=== PATIENT | female | born 1935 | race African-American/Black ===

== ENCOUNTER 2017-06-03 22:12 | Inpatient (IN) | payer MEDICARE, MEDICAID ==
[2017-06-03] MEDS ORDERED: NACL 0.9% 1000 ML 1,000 ML IV ONE (22:23)
--- NOTE | 2017-06-03 23:26 | Emergency Department Report ---
ED Altered Mental Status HPI - General Chief Complaint: Altered Mental Status Stated Complaint: UNRESPONSIVE Time Seen by Provider: 06/03/17 22:19 Source: EMS Mode of arrival: Stretcher Limitations: Language Barrier, Altered Mental Status, Physical Limitation - History of Present Illness Initial Comments: Patient is a 82-year-old female here with altered mental status. She is a chronically ill 82-year-old female who is brought in by EMS from home with complaint of unresponsiveness at home. Here she responds to voice and opens her eyes and follows commands but there is a significantly with. It is unclear to me if she is actually able to comprehend what we are saying. She appears chronically ill she is cachectic appearing no visible trauma. MD Complaint: altered mental status -: unknown Severity: Unable to Determine Consistency of Symptoms: unknown Context: unknown - Related Data Home Medications Medication Instructions Recorded Confirmed Last Taken Donepezil [Aricept] 5 mg PO QHS 09/25/14 04/30/17 04/28/17 18:00 Ferrous Sulfate [Feosol] 325 mg PO QDAY 09/25/14 08/04/15 1 Day Ago HYDROcodone/ACETAMINOPHEN 1 tab PO Q12H PRN 09/25/14 08/04/15 10/30/16 [Hydrocodon-Acetaminophen 5-325] Levocetirizine Dihydrochloride 5 mg PO QHS 09/25/14 04/30/17 04/28/17 18:00 [Xyzal] Montelukast [Singulair] 10 mg PO QDAY 09/25/14 04/30/17 04/29/17 10:00 Diazepam 5 mg PO QHS 07/15/15 08/04/15 03/30/17 18:00 Ascorbic Acid [Vitamin C] 500 mg PO QDAY 08/04/15 08/04/15 Unknown Furosemide [Lasix TAB] 20 mg PO QDAY 08/04/15 08/04/15 Unknown Previous Rx's Medication Instructions Recorded Last Taken Type Diazepam Tab [Valium] 5 mg PO QHS #30 tablet 05/02/17 Unknown Rx Donepezil [Aricept] 5 mg PO QHS #30 tablet 05/02/17 Unknown Rx Montelukast [Singulair] 10 mg PO QDAY #30 tablet 05/02/17 Unknown Rx Pantoprazole [Protonix INJ] 40 mg PO DIRECT #30 tab 05/02/17 Unknown Rx Pantoprazole [Protonix TAB] 40 mg PO DAILY #30 tablet 05/02/17 Unknown Rx Tylenol /Codeine # 3 tab 30 mg PO BID #60 05/02/17 Unknown Rx Allergies Allergy/AdvReac Type Severity Reaction Status Date / Time No Known Allergies Allergy Verified 07/15/15 08:35 ED Review of Systems ROS: Stated complaint: UNRESPONSIVE Other details as noted in HPI Comment: Unobtainable due to pts medical conditions ED Past Medical Hx - Past Medical History Previous Medical History?: Yes Hx Hypertension: Yes Hx Heart Attack/AMI: No Hx Congestive Heart Failure: Yes Hx Diabetes: No Hx Deep Vein Thrombosis: No Hx Pulmonary Embolism: No Hx Liver Disease: No Hx Renal Disease: Yes (CKD) Hx Sickle Cell Disease: No Hx Arthritis: No Hx Seizures: No Hx Kidney Stones: No Hx Asthma: No Hx COPD: Yes Hx Tuberculosis: No Hx Dementia: Yes Hx HIV: No - Surgical History Past Surgical History?: Yes Hx Coronary Stent: No Hx Open Heart Surgery: No Hx Pacemaker: No Hx Internal Defibrillator: No Hx Appendectomy: No Hx Breast Surgery: No Additional Surgical History: r hip replacement - Social History Smoking Status: Unknown if ever smoked Substance Use Type: Prescribed - Medications Home Medications: Home Medications Medication Instructions Recorded Confirmed Last Taken Type Donepezil [Aricept] 5 mg PO QHS 09/25/14 04/30/17 04/28/17 18:00 History Ferrous Sulfate [Feosol] 325 mg PO QDAY 09/25/14 08/04/15 1 Day Ago History HYDROcodone/ACETAMINOPHEN 1 tab PO Q12H PRN 09/25/14 08/04/15 10/30/16 History [Hydrocodon-Acetaminophen 5-325] Levocetirizine Dihydrochloride 5 mg PO QHS 09/25/14 04/30/17 04/28/17 18:00 History [Xyzal] Montelukast [Singulair] 10 mg PO QDAY 09/25/14 04/30/17 04/29/17 10:00 History Diazepam 5 mg PO QHS 07/15/15 08/04/15 03/30/17 18:00 History Ascorbic Acid [Vitamin C] 500 mg PO QDAY 08/04/15 08/04/15 Unknown History Furosemide [Lasix TAB] 20 mg PO QDAY 08/04/15 08/04/15 Unknown History Diazepam Tab [Valium] 5 mg PO QHS #30 tablet 05/02/17 Unknown Rx Donepezil [Aricept] 5 mg PO QHS #30 tablet 05/02/17 Unknown Rx Montelukast [Singulair] 10 mg PO QDAY #30 tablet 05/02/17 Unknown Rx Pantoprazole [Protonix INJ] 40 mg PO DIRECT #30 tab 05/02/17 Unknown Rx Pantoprazole [Protonix TAB] 40 mg PO DAILY #30 tablet 05/02/17 Unknown Rx Tylenol /Codeine # 3 tab 30 mg PO BID #60 05/02/17 Unknown Rx ED Physical Exam - General Limitations: Language Barrier, Altered Mental Status, Physical Limitation General appearance: lethargic - Head Head exam: Present: atraumatic, normocephalic, other (poor dentition) - Eye Eye exam: Present: normal appearance, PERRL, EOMI Pupils: Present: normal accommodation - ENT ENT exam: Present: normal exam - Respiratory Respiratory exam: Present: normal lung sounds bilaterally, respiratory distress - Cardiovascular Cardiovascular Exam: Present: regular rate, tachycardia - GI/Abdominal GI/Abdominal exam: Present: soft. Absent: distended - Back Exam Back exam: Present: normal inspection - Neurological Exam Neurological exam: Present: altered - Skin Skin exam: Present: warm, dry ED Course Vital Signs 06/03/17 06/03/17 06/03/17 22:14 22:21 22:27 Temperature 98.5 F Pulse Rate 111 H 104 H 105 H Respiratory 27 H 24 14 Rate Blood Pressure 200/124 Blood Pressure 200/124 [Right] O2 Sat by Pulse 97 Oximetry 06/03/17 06/03/17 06/03/17 22:30 22:35 22:41 Temperature Pulse Rate 100 H 105 H 106 H Respiratory 24 23 Rate Blood Pressure 186/117 186/117 Blood Pressure [Right] O2 Sat by Pulse Oximetry 06/03/17 06/03/17 06/03/17 22:51 23:01 23:11 Temperature Pulse Rate 102 H 102 H 96 H Respiratory 27 H 26 H 26 H Rate Blood Pressure 202/123 202/123 202/123 Blood Pressure [Right] O2 Sat by Pulse Oximetry 07/05/17 07/05/17 07/05/17 23:21 23:30 23:41 Temperature Pulse Rate 98 H 95 H 94 H Respiratory 27 H 24 24 Rate Blood Pressure 202/123 192/115 192/115 Blood Pressure [Right] O2 Sat by Pulse Oximetry 06/03/17 06/04/17 23:58 00:00 Temperature Pulse Rate 90 93 H Respiratory 21 21 Rate Blood Pressure 221/118 Blood Pressure [Right] O2 Sat by Pulse Oximetry - Lab Data Result diagrams: 06/03/17 23:15 06/03/17 23:15 Lab Results 06/03/17 06/03/17 06/03/17 Range/Units 23:15 23:15 23:15 WBC 13.4 H (4.5-11.0) K/mm3 RBC 4.16 (3.65-5.03) M/mm3 Hgb 11.8 (10.1-14.3) gm/dl Hct 36.9 (30.3-42.9) % MCV 89 (79-97) fl MCH 28 (28-32) pg MCHC 32 (30-34) % RDW 14.2 (13.2-15.2) % Plt Count 229 (140-440) K/mm3 Lymph % (Auto) 6.9 L (13.4-35.0) % [place] % (Auto) 3.5 (0.0-7.3) % Eos % (Auto) 0.0 (0.0-4.3) % Baso % (Auto) 0.1 (0.0-1.8) % Lymph # 0.9 L (1.2-5.4) K/mm3 [place] # 0.5 (0.0-0.8) K/mm3 Eos # 0.0 (0.0-0.4) K/mm3 Baso # 0.0 (0.0-0.1) K/mm3 Seg Neutrophils % 89.5 H (40.0-70.0) % Seg Neutrophils # 12.0 H (1.8-7.7) K/mm3 PT 13.0 (12.2-14.9) Sec. INR 0.99 (0.87-1.13) APTT 36.7 H (24.2-36.6) Sec. Sodium (137-145) mmol/L Potassium (3.6-5.0) mmol/L Chloride (98-107) mmol/L Carbon Dioxide (22-30) mmol/L Anion Gap mmol/L BUN (7-17) mg/dL Creatinine (0.7-1.2) mg/dL Estimated GFR ml/min BUN/Creatinine Ratio % Glucose (65-100) mg/dL Lactic Acid 1.20 (0.7-2.0) mmol/L Calcium (8.4-10.2) mg/dL Total Bilirubin (0.1-1.2) mg/dL AST (5-40) units/L ALT (7-56) units/L Alkaline Phosphatase (35-129) units/L Troponin T (0.00-0.029) ng/mL Total Protein (6.3-8.2) g/dL Albumin (3.9-5) g/dL Albumin/Globulin Ratio % Urine Color (Yellow) Urine Turbidity (Clear) Urine pH (5.0-7.0) Ur Specific [place] (1.003-1.030) Urine Protein (Negative) mg/dL Urine Glucose (UA) (Negative) mg/dL Urine Ketones (Negative) mg/dL Urine Blood (Negative) Urine Nitrite (Negative) Urine Bilirubin (Negative) Urine Urobilinogen (<2.0) mg/dL Ur Leukocyte Esterase (Negative) Urine WBC (Auto) (0.0-6.0) /HPF Urine RBC (Auto) (0.0-6.0) /HPF U Epithel Cells (Auto) (0-13.0) /HPF Urine Bacteria (Auto) (Negative) /HPF Hyaline Casts /LPF Urine Mucus /HPF Blood Type Antibody Screen KALYA Antibody Screen 06/03/17 06/03/17 06/04/17 Range/Units 23:15 23:15 00:11 WBC (4.5-11.0) K/mm3 RBC (3.65-5.03) M/mm3 Hgb (10.1-14.3) gm/dl Hct (30.3-42.9) % MCV (79-97) fl MCH (28-32) pg MCHC (30-34) % RDW (13.2-15.2) % Plt Count (140-440) K/mm3 Lymph % (Auto) (13.4-35.0) % [place] % (Auto) (0.0-7.3) % Eos % (Auto) (0.0-4.3) % Baso % (Auto) (0.0-1.8) % Lymph # (1.2-5.4) K/mm3 [place] # (0.0-0.8) K/mm3 Eos # (0.0-0.4) K/mm3 Baso # (0.0-0.1) K/mm3 Seg Neutrophils % (40.0-70.0) % Seg Neutrophils # (1.8-7.7) K/mm3 PT (12.2-14.9) Sec. INR (0.87-1.13) APTT (24.2-36.6) Sec. Sodium 144 (137-145) mmol/L Potassium 4.4 (3.6-5.0) mmol/L Chloride 105.0 (98-107) mmol/L Carbon Dioxide 27 (22-30) mmol/L Anion Gap 16 mmol/L BUN 30 H (7-17) mg/dL Creatinine 1.7 H (0.7-1.2) mg/dL Estimated GFR 29 ml/min BUN/Creatinine Ratio 17.64 % Glucose 142 H (65-100) mg/dL Lactic Acid (0.7-2.0) mmol/L Calcium 10.5 H (8.4-10.2) mg/dL Total Bilirubin 0.40 (0.1-1.2) mg/dL AST 14 (5-40) units/L ALT 7 (7-56) units/L Alkaline Phosphatase 95 (35-129) units/L Troponin T < 0.010 (0.00-0.029) ng/mL Total Protein 8.5 H (6.3-8.2) g/dL Albumin 3.6 L (3.9-5) g/dL Albumin/Globulin Ratio 0.7 % Urine Color Yellow (Yellow) Urine Turbidity Slightly-cloudy (Clear) Urine pH 8.0 H (5.0-7.0) Ur Specific [place] 1.013 (1.003-1.030) Urine Protein 100 mg/dl (Negative) mg/dL Urine Glucose (UA) Neg (Negative) mg/dL Urine Ketones Neg (Negative) mg/dL Urine Blood Neg (Negative) Urine Nitrite Neg (Negative) Urine Bilirubin Neg (Negative) Urine Urobilinogen < 2.0 (<2.0) mg/dL Ur Leukocyte Esterase Neg (Negative) Urine WBC (Auto) 2.0 (0.0-6.0) /HPF Urine RBC (Auto) 5.0 (0.0-6.0) /HPF U Epithel Cells (Auto) 1.0 (0-13.0) /HPF Urine Bacteria (Auto) 1+ (Negative) /HPF Hyaline Casts 1 /LPF Urine Mucus Few /HPF Blood Type A POSITIVE Antibody Screen TNR KAYLA Antibody Screen Negative - Medical Decision Making Chronically ill 82-year-old female with altered mental status. Unclear at this point what is causing her symptoms. There is no focal findings on clinical exam. She appears chronically ill and was recently admitted to the hospital here. Plan workup with x-ray and labs and will reassess. White count elevated at 13.6 patient with hypoxia on arrival, improved in the department. Given her recent hospitalization I will plan to treat HCAP. IV Zosyn and vancomycin ordered. Chest x-ray with questionable infiltrate in the right upper lobe. Blood cultures and lactate ordered. Plan to admit to hospitalist. Portions of this chart were dictated with dictation software. There may be dictation errors contained within this note. Critical Care Time: Yes (35) Critical care attestation.: If time is entered above; I have spent that time in minutes in the direct care of this critically ill patient, excluding procedure time. Critical Care Time: 35 ED Disposition Clinical Impression: Pneumonia, Encephalopathy Disposition: [id number] OP ADMIT IP TO THIS HOSP Is pt being admited?: Yes Condition: Stable Instructions: Bacterial Pneumonia (ED) Referrals: PRIMARY CAREMD [Primary Care Provider] - 3-5 Days
[2017-06-04 00:02] LABS: Basophils % (Auto) 0.1 % (0.0-1.8); Hematocrit 36.9 % (30.3-42.9); Hemoglobin 11.8 gm/dl (10.1-14.3); Mean Corpuscular HGB Conc 32 % (30-34); Mean Corpuscular Hemoglobin 28 pg (28-32); Mean Corpuscular Volume 89 fl (79-97); Platelet Count 229 K/mm3 (140-440); Red Blood Count 4.16 M/mm3 (3.65-5.03); Red Cell Distribution Width 14.2 % (13.2-15.2); White Blood Count 13.4 K/mm3 (4.5-11.0)
[2017-06-04 00:10] LABS: INR 0.99 (0.87-1.13); Partial Thromboplastin Time 36.7 Sec. (24.2-36.6)
[2017-06-04 00:20] LABS: Alanine Aminotransferase 7 units/L (7-56); Albumin 3.6 g/dL (3.9-5); Albumin/Globulin Ratio 0.7 %; Alkaline Phosphatase 95 units/L (35-129); Anion Gap 16 mmol/L; BUN/Creatinine Ratio 17.64; Blood Urea Nitrogen 30 mg/dL (7-17); Calcium 10.5 mg/dL (8.4-10.2); Carbon Dioxide 27 mmol/L (22-30); Glucose 142 mg/dL (65-100); Potassium 4.4 mmol/L (3.6-5.0); Sodium 144 mmol/L (137-145); Total Protein 8.5 g/dL (6.3-8.2)
[2017-06-04] MEDS ORDERED: VANCOMYCIN/NS 1 GM/250 ML 1 GM/250 ML BAG IV ONE (00:57)
[2017-06-04] MEDS ORDERED: ZOSYN/NS 4.5GM/100ML 4.5 GM/100 ML VIAL IV ONE (00:57)
[2017-06-04 01:17] LABS: Bacteria,Urine 1+ /HPF (Negative); Bilirubin,Urine NEG (Negative); Blood,Urine NEG (Negative); Ketones,Urine NEG (Negative); Leukocyte Esterase,Urine NEG (Negative); Mucus,Urine FEW /HPF; Nitrite,Urine NEG (Negative); Urobilinogen,Urine < 2.0 mg/dL (<2.0)
[2017-06-04] MEDS ORDERED: APRESOLINE ONE (02:20)
[2017-06-04] MEDS ORDERED: APRESOLINE IV ONE (02:30)
--- NOTE | 2017-06-04 05:00 | Admit Criteria Form ---
Admission Criteria Documentation: MENTAL STATUS CHANGE Clinical Indications for Inpatient Care (Place 'X' for any and all applicable criteria): Ongoing inpatient care may be needed for 1 or more of the following(1)(2)(3)(5)( 6): [ X]I. Suspected serious etiology (eg, medical disorder, SUPERVISOR MIXING event) of altered mental status [ ]II. Danger to self or others not manageable at lower level of care [ ]III. Grave disability (eg, inability to perform self care necessary at lower level of care) [ ]IV. Agitation or inappropriate behavior interfering with care for primary condition (eg, attempting to discontinue lines or drains prematurely, unable to cooperate with respiratory care) [ ]V. Delirium [A] [D][E] as described by 1 or more of the following(26): [ ]a) Delirium due to alcohol or sedative [F] withdrawal [ ]b) Delirium of uncertain etiology that has not responded to appropriate empiric treatment [ ]c) Delirium that prevents performance of a life-sustaining function (eg, feeding or hydrating oneself) [ ]. General contraindications and/or Inappropriate clinical situations for Observational Care in patients with Mental Status Change, when ANY ONE of the following is required: [ ]a) Prediction of prolongation of LOS based on ANY ONE of the following may be considered as a contraindication for observational care 2, 3, 4, 5, 6, 7, 8, 9, 10, 11 [ ]i) Age > 65 yrs. [ ]ii) Patient arriving by ambulance [ ]iii) Patient with high acuity [ ]iv) Patient requiring vital sign monitoring [ ]v) Patient on IV medication [ ]b) Systolic blood pressures greater than or equal to 180mmHg 3, 12 [ ]c) Patient with altered mental status including delirium and other alteration of consciousness, (3) [ ]d) Patient whose discharge disposition will be to a custodial home or rehabilitation home should not be managed in Emergency Department Observation Unit. CMS rule requires 3 days hospital stay before such placement.3,13 [ ]e) Patient with failure to thrive due to broad array of etiologies 3,16,17 [ ]f) Inability to ambulate 3,14 Extended stay beyond goal length of stay for the primary condition may be needed until ALL of the following are present(3)(5): [ ]a) Underlying medical etiology of mental status change is absent, or has been established and adequately treated [ ]b) Danger to self or others is absent or manageable at lower level of care. [ ]c) Behavior crisis management, including physical or chemical restraints, is not required or available at lower level of car [ ]d) Substance or alcohol withdrawal is absent or manageable at lower level of care. [ ]e) Behavioral symptoms (eg, agitation, somnolence, inappropriate behavior) are absent, or are manageable at lower level of care. The original [facility] [employer] content created by [facility] [employer] has been revised. The portions of the content which have been revised are identified through the use of italic text or in bold, and [facility] has neither reviewed nor approved the modified material. All other unmodified content is copyright [facility] [employer]. Please see references footnoted in the original [facility] Admission Criteria Met: Yes
[2017-06-04 05:49] LABS: ISTAT Base Excess -2; ISTAT HCO3 22.3; ISTAT PCO2 33.7 (35-45); ISTAT PH 7.428 (7.35-7.45); ISTAT PO2 87 (80-105); ISTAT SO2 97; ISTAT TCO2 23
[2017-06-04] MEDS ORDERED: DULCOLAX PR PRN (06:14)
[2017-06-04] MEDS ORDERED: MILK OF MAGNESIA PO PRN (06:14)
[2017-06-04] MEDS ORDERED: TYLENOL PO PRN (06:14)
[2017-06-04] MEDS ORDERED: ZOFRAN IV PRN (06:14)
--- NOTE | 2017-06-04 06:24 | History and Physical Report ---
History of Present Illness Date of examination: 06/04/17 Date of admission: 06/04/17 03:01 History of present illness: 82-year-old woman with a history of hypertension, COPD, chronic kidney disease, dementia was just discharged from the hospital returned with complaints of cough productive of yellow phlegm, lethargy, patient has been sleeping all day. Patient was discharged from the hospital 2 days ago . History is per the spouse at bedside, review of systems unobtainable Past Surgical History: total hip replacement Social history: smoke , no alcohol or drug use Family history: hypertension Medications and Allergies Allergies Allergy/AdvReac Type Severity Reaction Status Date / Time No Known Allergies Allergy Verified 07/15/15 08:35 Home Medications Medication Instructions Recorded Confirmed Last Taken Type Donepezil [Aricept] 5 mg PO QHS 09/25/14 04/30/17 04/28/17 18:00 History Ferrous Sulfate [Feosol] 325 mg PO QDAY 09/25/14 08/04/15 1 Day Ago History HYDROcodone/ACETAMINOPHEN 1 tab PO Q12H PRN 09/25/14 08/04/15 10/30/16 History [Hydrocodon-Acetaminophen 5-325] Levocetirizine Dihydrochloride 5 mg PO QHS 09/25/14 04/30/17 04/28/17 18:00 History [Xyzal] Montelukast [Singulair] 10 mg PO QDAY 09/25/14 04/30/17 04/29/17 10:00 History Diazepam 5 mg PO QHS 07/15/15 08/04/15 03/30/17 18:00 History Ascorbic Acid [Vitamin C] 500 mg PO QDAY 08/04/15 08/04/15 Unknown History Furosemide [Lasix TAB] 20 mg PO QDAY 08/04/15 08/04/15 Unknown History Diazepam Tab [Valium] 5 mg PO QHS #30 tablet 05/02/17 Unknown Rx Donepezil [Aricept] 5 mg PO QHS #30 tablet 05/02/17 Unknown Rx Montelukast [Singulair] 10 mg PO QDAY #30 tablet 05/02/17 Unknown Rx Pantoprazole [Protonix INJ] 40 mg PO DIRECT #30 tab 05/02/17 Unknown Rx Pantoprazole [Protonix TAB] 40 mg PO DAILY #30 tablet 05/02/17 Unknown Rx Tylenol /Codeine # 3 tab 30 mg PO BID #60 05/02/17 Unknown Rx Active Meds: Active Medications Acetaminophen (Tylenol) 650 mg PO Q4H PRN PRN Reason: Pain MILD(1-3)/Fever >100.5/[place] Ascorbic Acid (Vitamin C) 500 mg PO QDAY ISSAC Bisacodyl (Dulcolax) 10 mg SC QDAY PRN PRN Reason: Constipation unrelieved by MOM Diazepam (Valium) 5 mg PO QHS ISSAC Donepezil HCl (Aricept) 5 mg PO QHS ISSAC Ferrous Sulfate (Feosol) 325 mg PO QDAY ISSAC Furosemide (Lasix) 20 mg PO QDAY ISSAC Hydralazine HCl (Apresoline) 5 mg IV Q6HR PRN PRN Reason: Hypertension Levofloxacin/Dextrose (Levaquin 750mg/150ml) 750 mg in 150 mls @ 100 mls/hr IV Q24HR ISSAC PRN Reason: Protocol Piperacillin Sod/Tazobactam Sod (Zosyn/Ns 4.5gm/100ml) 4.5 gm in 100 mls @ 200 mls/hr IV Q6HR ISSAC PRN Reason: Protocol Magnesium Hydroxide (Milk Of Magnesia) 30 ml PO Q4H PRN PRN Reason: Constipation Ondansetron HCl (Zofran) 4 mg IV Q8H PRN PRN Reason: N/V unrelieved by Reglan Pantoprazole Sodium (Protonix) 40 mg PO DAILY [facility] Exam - Physical Exam Narrative exam: Gen. appearance: Patient lying in bed, no apparent distress HEENT: Normocephalic, atraumatic, pupils equally round and reactive to light, extraocular movement intact, and no sclericterus,. No JVD or thyromegaly or nodule,neck supple, no carotid bruit ,mucous membranes moist, no exudate or erythema Heart: S1, S2, regular rate and rhythm Lungs: [place], breathing comfortable Abdomen: Positive bowel sounds, nontender, nondistended, no organomegaly Extremity: No edema, cyanosis, clubbing Skin: No rash, nodules, warm, dry Neuro: lethargic, difficult to assess - Constitutional Vitals: Temp Pulse Resp BP Pulse Ox 98.5 F 104 H 24 183/92 97 06/03/17 22:27 06/04/17 04:21 06/04/17 04:21 06/04/17 04:21 06/03/17 22:27 Results - Labs CBC & Chem 7: 06/03/17 23:15 06/03/17 23:15 Labs: Abnormal lab results 06/04/17 Range/Units 05:41 POC ABG pCO2 33.7 L (35-45) - Imaging and Cardiology Chest x-ray: image reviewed Assessment and Plan HCAP Hypertension uncontrolled Dementia Chronic kidney disease Admit to medicine Start IV Zosyn, Levaquin, IV hydralazine Obtain sputum culture, follow blood cultures Continue appropriate outpatient medication DVT prophylaxis with SCD, recent admission for GIB
[2017-06-04] MEDS ORDERED: ZOSYN/NS 4.5GM/100ML 4.5 GM/100 ML VIAL IV SCH (07:00)
--- NOTE | 2017-06-04 07:40 | XRay Report ---
Single view chest: Compared to 08/06/15. History: Altered mental status. Findings: Cardiomegaly. Trachea is midline. No consolidation, pneumothorax or pleural effusion. Impression: No acute cardiopulmonary findings.
[2017-06-04] MEDS: ZOSYN/NS 2.25 GM/50ML 2.25 GM/50 ML BAG IV SCH ×3 (09:01→21:16)
[2017-06-04] MEDS: LEVAQUIN 750MG/150ML 750 MG/150 ML BAG IV SCH (10:34)
[2017-06-04] MEDS: LASIX PO SCH (10:35)
[2017-06-04] MEDS: FEOSOL PO SCH (10:35)
[2017-06-04] MEDS: PROTONIX PO SCH (10:35)
[2017-06-04] MEDS: VITAMIN C PO SCH (10:35)
[2017-06-04] MEDS: APRESOLINE IV PRN (10:52)
--- NOTE | 2017-06-04 16:15 | Event Note ---
Date: 06/04/17 Patient was seen and evaluated this morning, patient H&P is done today and no need of daily note.
[2017-06-04] MEDS: ARICEPT PO SCH (21:18)
[2017-06-04] MEDS ORDERED: VALIUM PO SCH (22:00)
[2017-06-05] MEDS: ZOSYN/NS 2.25 GM/50ML 2.25 GM/50 ML BAG IV SCH ×2 (03:00→08:11)
[2017-06-05 07:46] LABS: Red Blood Count 3.96 M/mm3 (3.65-5.03); White Blood Count 13.4 K/mm3 (4.5-11.0)
[2017-06-05 07:47] LABS: Mean Corpuscular HGB Conc 31 % (30-34); Mean Corpuscular Hemoglobin 28 pg (28-32); Mean Corpuscular Volume 88 fl (79-97); Platelet Count 246 K/mm3 (140-440); Red Cell Distribution Width 14.5 % (13.2-15.2)
[2017-06-05 08:10] LABS: BUN/Creatinine Ratio 18.42; Calcium 10.9 mg/dL (8.4-10.2); Chloride 107.7 mmol/L (98-107); Potassium 3.3 mmol/L (3.6-5.0)
[2017-06-05] MEDS: APRESOLINE IV PRN (08:45)
[2017-06-05] MEDS ORDERED: PROVENTIL IH PRN (09:00)
--- NOTE | 2017-06-05 09:13 | XRay Report ---
AP chest x-ray. History: Cough. Findings: The heart and lungs reveal no acute findings or interval changes since June 03, 2017.
[2017-06-05] MEDS: LASIX PO SCH (09:31)
[2017-06-05] MEDS: PROTONIX PO SCH (09:31)
[2017-06-05] MEDS: FEOSOL PO SCH (09:31)
[2017-06-05] MEDS: VITAMIN C PO SCH (09:32)
[2017-06-05 10:03] LABS: Basophils % (Manual) 0 % (0.0-1.8); Blastocytes % (Manual) 0 %; Diff Status Complete; Eosinophils % (Manual) 0 % (0.0-4.3); Platelet Estimate Consistent w Auto; RBC Morphology Normal
[2017-06-05] MEDS ORDERED: NORCO 5/325 PO PRN (12:00)
[2017-06-05] MEDS: NORVASC PO SCH (12:16)
[2017-06-05] MEDS ORDERED: K-DUR PO ONE ×2 (13:05→16:00)
--- NOTE | 2017-06-05 13:06 | Progress Note ---
Assessment and Plan Assessment and plan: Toxic metabolic encephalopathy Dementia - Improving, supportive care COPD exacerbation - on breathing treatment, IV antibiotics Uncontrolled hypertension - Started on amlodipine Debility -Physical therapy DVT prophylaxis - Lovenox Disposition - Patient needed SNF History Interval history: Patient was seen and evaluated this morning, her was in the room, and he said she communicates with him. She doesn't speak khmer. Hospitalist Physical - Physical exam Narrative exam: Not in cardiopulmonary distress. The patient appeared chronically sick looking. Vital signs as documented. Head exam is unremarkable. No scleral icterus . Neck is without jugular venous distension, thyromegaly, or carotid bruits. Lungs are clear to auscultation. Cardiac exam reveals regular rate and Rhythm. Abdominal exam reveals normal bowel sounds, no masses, no organomegaly and no aortic enlargement. Extremities are nonedematous and both femoral and pedal pulses are normal. 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 No focal weakness. - Constitutional Vitals: Temp Pulse Resp BP Pulse Ox 97.7 F 109 H 18 153/73 97 06/05/17 09:00 06/05/17 12:16 06/05/17 10:00 06/05/17 12:16 06/05/17 10:00 Results - Labs CBC & Chem 7: 06/05/17 07:24 06/05/17 07:24 Labs: Laboratory Last Values WBC 13.4 K/mm3 (4.5-11.0) H 06/05/17 07:24 RBC 3.96 M/mm3 (3.65-5.03) 06/05/17 07:24 Hgb 11.0 gm/dl (10.1-14.3) 06/05/17 07:24 Hct 35.0 % (30.3-42.9) 06/05/17 07:24 MCV 88 fl (79-97) 06/05/17 07:24 MCH 28 pg (28-32) 06/05/17 07:24 MCHC 31 % (30-34) 06/05/17 07:24 RDW 14.5 % (13.2-15.2) 06/05/17 07:24 Plt Count 246 K/mm3 (140-440) 06/05/17 07:24 Lymph % (Auto) 6.9 % (13.4-35.0) L 06/03/17 23:15 [place] % (Auto) 3.5 % (0.0-7.3) 06/03/17 23:15 Eos % (Auto) 0.0 % (0.0-4.3) 06/03/17 23:15 Baso % (Auto) 0.1 % (0.0-1.8) 06/03/17 23:15 Lymph # 0.9 K/mm3 (1.2-5.4) L 06/03/17 23:15 [place] # 0.5 K/mm3 (0.0-0.8) 06/03/17 23:15 Eos # 0.0 K/mm3 (0.0-0.4) 06/03/17 23:15 Baso # 0.0 K/mm3 (0.0-0.1) 06/03/17 23:15 Add Manual Diff Complete 06/05/17 07:24 Total Counted 100 06/05/17 07:24 Seg Neutrophils % Drywall Professional 06/05/17 07:24 Seg Neuts % (Manual) 96.0 % (40.0-70.0) H 06/05/17 07:24 Band Neutrophils % 2.0 % 06/05/17 07:24 Lymphocytes % (Manual) 1.0 % (13.4-35.0) L 06/05/17 07:24 Reactive Lymphs % (Man) 0 % 06/05/17 07:24 Monocytes % (Manual) 1.0 % (0.0-7.3) 06/05/17 07:24 Eosinophils % (Manual) 0 % (0.0-4.3) 06/05/17 07:24 Basophils % (Manual) 0 % (0.0-1.8) 06/05/17 07:24 Metamyelocytes % 0 % 06/05/17 07:24 Myelocytes % 0 % 06/05/17 07:24 Promyelocytes % 0 % 06/05/17 07:24 Blast Cells % 0 % 06/05/17 07:24 Nucleated RBC % Not Reportable 06/05/17 07:24 Seg Neutrophils # 12.0 K/mm3 (1.8-7.7) H 06/03/17 23:15 Seg Neutrophils # Man 12.9 K/mm3 (1.8-7.7) H 06/05/17 07:24 Band Neutrophils # 0.3 K/mm3 06/05/17 07:24 Lymphocytes # (Manual) 0.1 K/mm3 (1.2-5.4) L 06/05/17 07:24 Abs React Lymphs (Man) 0.0 K/mm3 06/05/17 07:24 Monocytes # (Manual) 0.1 K/mm3 (0.0-0.8) 06/05/17 07:24 Eosinophils # (Manual) 0.0 K/mm3 (0.0-0.4) 06/05/17 07:24 Basophils # (Manual) 0.0 K/mm3 (0.0-0.1) 06/05/17 07:24 Metamyelocytes # 0.0 K/mm3 06/05/17 07:24 Myelocytes # 0.0 K/mm3 06/05/17 07:24 Promyelocytes # 0.0 K/mm3 06/05/17 07:24 Blast Cells # 0.0 K/mm3 06/05/17 07:24 WBC Morphology Not Reportable 06/05/17 07:24 Hypersegmented Neuts Not Reportable 06/05/17 07:24 Hyposegmented Neuts Not Reportable 06/05/17 07:24 Hypogranular Neuts Not Reportable 06/05/17 07:24 Smudge Cells Not Reportable 06/05/17 07:24 Toxic Granulation Not Reportable 06/05/17 07:24 Toxic Vacuolation Not Reportable 06/05/17 07:24 Dohle Bodies Not Reportable 06/05/17 07:24 Pelger-Huet Anomaly Not Reportable 06/05/17 07:24 Ruddy Rods Not Reportable 06/05/17 07:24 Platelet Estimate Consistent w auto 06/05/17 07:24 Clumped Platelets Not Reportable 06/05/17 07:24 Plt Clumps, EDTA Not Reportable 06/05/17 07:24 Large Platelets Not Reportable 06/05/17 07:24 Giant Platelets Not Reportable 06/05/17 07:24 Platelet Satelliting Not Reportable 06/05/17 07:24 Plt Morphology Comment Not Reportable 06/05/17 07:24 RBC Morphology Normal 06/05/17 07:24 Dimorphic RBCs Not Reportable 06/05/17 07:24 Polychromasia Not Reportable 06/05/17 07:24 Hypochromasia Not Reportable 06/05/17 07:24 Poikilocytosis Not Reportable 06/05/17 07:24 Anisocytosis Not Reportable 06/05/17 07:24 Microcytosis Not Reportable 06/05/17 07:24 Macrocytosis Not Reportable 06/05/17 07:24 Spherocytes Not Reportable 06/05/17 07:24 Pappenheimer Bodies Not Reportable 06/05/17 07:24 Sickle Cells Not Reportable 06/05/17 07:24 Target Cells Not Reportable 06/05/17 07:24 Tear Drop Cells Not Reportable 06/05/17 07:24 Ovalocytes Not Reportable 06/05/17 07:24 Helmet Cells Not Reportable 06/05/17 07:24 [place] Bodies Not Reportable 06/05/17 07:24 [place] Rings Not Reportable 06/05/17 07:24 [place] Cells Not Reportable 06/05/17 07:24 Bite Cells Not Reportable 06/05/17 07:24 Crenated Cell Not Reportable 06/05/17 07:24 Elliptocytes Not Reportable 06/05/17 07:24 Acanthocytes (Spur) Not Reportable 06/05/17 07:24 Rouleaux Not Reportable 06/05/17 07:24 Hemoglobin C Crystals Not Reportable 06/05/17 07:24 Schistocytes Not Reportable 06/05/17 07:24 Malaria parasites Not Reportable 06/05/17 07:24 Maciej Bodies Not Reportable 06/05/17 07:24 Hem Pathologist Commnt No 06/05/17 07:24 PT 13.0 Sec. (12.2-14.9) 06/03/17 23:15 INR 0.99 (0.87-1.13) 06/03/17 23:15 APTT 36.7 Sec. (24.2-36.6) H 06/03/17 23:15 POC ABG pH 7.428 (7.35-7.45) 06/04/17 05:41 POC ABG pCO2 33.7 (35-45) L 06/04/17 05:41 POC ABG pO2 87 (80-105) 06/04/17 05:41 POC ABG HCO3 22.3 06/04/17 05:41 POC ABG Total CO2 23 06/04/17 05:41 POC ABG O2 Sat 97 06/04/17 05:41 POC ABG Base Excess -2 06/04/17 05:41 FiO2 32 % 06/04/17 05:41 Sodium 146 mmol/L (137-145) H 06/05/17 07:24 Potassium 3.3 mmol/L (3.6-5.0) L D 06/05/17 07:24 Chloride 107.7 mmol/L (98-107) H 06/05/17 07:24 Carbon Dioxide 21 mmol/L (22-30) L 06/05/17 07:24 Anion Gap 21 mmol/L 06/05/17 07:24 BUN 35 mg/dL (7-17) H 06/05/17 07:24 Creatinine 1.9 mg/dL (0.7-1.2) H 06/05/17 07:24 Estimated GFR 25 ml/min 06/05/17 07:24 BUN/Creatinine Ratio 18.42 % 06/05/17 07:24 Glucose 114 mg/dL (65-100) H 06/05/17 07:24 POC Glucose 132 (70-105) H 06/05/17 07:58 Lactic Acid 0.90 mmol/L (0.7-2.0) 06/04/17 02:11 Calcium 10.9 mg/dL (8.4-10.2) H 06/05/17 07:24 Total Bilirubin 0.40 mg/dL (0.1-1.2) 06/03/17 23:15 AST 14 units/L (5-40) 06/03/17 23:15 ALT 7 units/L (7-56) 06/03/17 23:15 Alkaline Phosphatase 95 units/L (35-129) 06/03/17 23:15 Troponin T < 0.010 ng/mL (0.00-0.029) 06/03/17 23:15 Total Protein 8.5 g/dL (6.3-8.2) H 06/03/17 23:15 Albumin 3.6 g/dL (3.9-5) L 06/03/17 23:15 Albumin/Globulin Ratio 0.7 % 06/03/17 23:15 Urine Color Yellow (Yellow) 06/04/17 00:11 Urine Turbidity Slightly-cloudy (Clear) 06/04/17 00:11 Urine pH 8.0 (5.0-7.0) H 06/04/17 00:11 Ur Specific [place] 1.013 (1.003-1.030) 06/04/17 00:11 Urine Protein 100 mg/dl mg/dL (Negative) 06/04/17 00:11 Urine Glucose (UA) Neg mg/dL (Negative) 06/04/17 00:11 Urine Ketones Neg mg/dL (Negative) 06/04/17 00:11 Urine Blood Neg (Negative) 06/04/17 00:11 Urine Nitrite Neg (Negative) 06/04/17 00:11 Urine Bilirubin Neg (Negative) 06/04/17 00:11 Urine Urobilinogen < 2.0 mg/dL (<2.0) 06/04/17 00:11 Ur Leukocyte Esterase Neg (Negative) 06/04/17 00:11 Urine WBC (Auto) 2.0 /HPF (0.0-6.0) 06/04/17 00:11 Urine RBC (Auto) 5.0 /HPF (0.0-6.0) 06/04/17 00:11 U Epithel Cells (Auto) 1.0 /HPF (0-13.0) 06/04/17 00:11 Urine Bacteria (Auto) 1+ /HPF (Negative) 06/04/17 00:11 Hyaline Casts 1 /LPF 06/04/17 00:11 Urine Mucus Few /HPF 06/04/17 00:11 Blood Type A POSITIVE 06/03/17 23:15 Antibody Screen TNR 06/03/17 23:15 KAYLA Antibody Screen Negative 06/03/17 23:15
--- NOTE | 2017-06-05 14:20 | Cat Scan Report ---
CT scan of head without contrast: Compared to 07/31/15. History: AMS. Findings: Mildly dilated ventricles with cortical atrophy. No acute ischemia, hemorrhage or mass. No extra axial fluid collection. Normal sinuses and mastoid air cells. Impression: No acute intracranial abnormality. No significant interval change.
[2017-06-05] MEDS: DUONEB *Not for PRN Use IH SCH ×2 (14:59→20:51)
[2017-06-05] MEDS: VALIUM PO SCH (21:38)
[2017-06-05] MEDS: ARICEPT PO SCH (21:38)
[2017-06-06 07:29] LABS: Basophils % (Auto) 0.5 % (0.0-1.8); Eosinophils % (Auto) 0.1 % (0.0-4.3); Hematocrit 33.4 % (30.3-42.9); Hemoglobin 10.7 gm/dl (10.1-14.3); Mean Corpuscular HGB Conc 32 % (30-34); Mean Corpuscular Hemoglobin 28 pg (28-32); Mean Corpuscular Volume 87 fl (79-97); Platelet Count 217 K/mm3 (140-440); Red Blood Count 3.86 M/mm3 (3.65-5.03); Red Cell Distribution Width 14.5 % (13.2-15.2); White Blood Count 12.1 K/mm3 (4.5-11.0)
[2017-06-06 07:37] LABS: BUN/Creatinine Ratio 23.52; Calcium 10.7 mg/dL (8.4-10.2); Chloride 111.1 mmol/L (98-107)
[2017-06-06] MEDS: DUONEB *Not for PRN Use IH SCH ×3 (08:25→19:57)
[2017-06-06] MEDS: SINGULAIR PO SCH (10:00)
[2017-06-06] MEDS: VITAMIN C PO SCH (10:01)
[2017-06-06] MEDS: FEOSOL PO SCH (10:01)
[2017-06-06] MEDS: PROTONIX PO SCH (10:01)
[2017-06-06] MEDS: NORVASC PO SCH (10:01)
[2017-06-06] MEDS: LASIX PO SCH (10:01)
[2017-06-06] MEDS: LEVAQUIN 750MG/150ML 750 MG/150 ML BAG IV SCH (10:02)
--- NOTE | 2017-06-06 12:08 | Progress Note ---
Assessment and Plan Assessment and plan: Toxic metabolic encephalopathy Dementia - Improving, supportive care COPD exacerbation - on breathing treatment, IV antibiotics Uncontrolled hypertension - on amlodipine - Will start on hydralazine Debility -Physical therapy DVT prophylaxis - Lovenox Disposition - Patient needed SNF History Interval history: Patient was seen and evaluated this morning. She doesn't speak Chinese. Patient was not in pain or distress Hospitalist Physical - Physical exam Narrative exam: Not in cardiopulmonary distress. The patient appeared chronically sick looking. Vital signs as documented. Head exam is unremarkable. No scleral icterus . Neck is without jugular venous distension, thyromegaly, or carotid bruits. Lungs are clear to auscultation. Cardiac exam reveals regular rate and Rhythm. Abdominal exam reveals normal bowel sounds, no masses, no organomegaly and no aortic enlargement. Extremities are nonedematous and both femoral and pedal pulses are normal. 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 No focal weakness. - Constitutional Vitals: Temp Pulse Resp BP Pulse Ox 97.4 F L 116 H 18 154/71 100 06/05/17 22:03 06/06/17 10:01 06/06/17 08:35 06/06/17 10:01 06/06/17 08:25 Results - Labs CBC & Chem 7: 06/06/17 07:07 06/06/17 07:07 Labs: Laboratory Last Values WBC 12.1 K/mm3 (4.5-11.0) H 06/06/17 07:07 RBC 3.86 M/mm3 (3.65-5.03) 06/06/17 07:07 Hgb 10.7 gm/dl (10.1-14.3) 06/06/17 07:07 Hct 33.4 % (30.3-42.9) 06/06/17 07:07 MCV 87 fl (79-97) 06/06/17 07:07 MCH 28 pg (28-32) 06/06/17 07:07 MCHC 32 % (30-34) 06/06/17 07:07 RDW 14.5 % (13.2-15.2) 06/06/17 07:07 Plt Count 217 K/mm3 (140-440) 06/06/17 07:07 Lymph % (Auto) 6.6 % (13.4-35.0) L 06/06/17 07:07 [place] % (Auto) 3.6 % (0.0-7.3) 06/06/17 07:07 Eos % (Auto) 0.1 % (0.0-4.3) 06/06/17 07:07 Baso % (Auto) 0.5 % (0.0-1.8) 06/06/17 07:07 Lymph # 0.8 K/mm3 (1.2-5.4) L 06/06/17 07:07 [place] # 0.4 K/mm3 (0.0-0.8) 06/06/17 07:07 Eos # 0.0 K/mm3 (0.0-0.4) 06/06/17 07:07 Baso # 0.1 K/mm3 (0.0-0.1) 06/06/17 07:07 Add Manual Diff Complete 06/05/17 07:24 Total Counted 100 06/05/17 07:24 Seg Neutrophils % 89.2 % (40.0-70.0) H 06/06/17 07:07 Seg Neuts % (Manual) 96.0 % (40.0-70.0) H 06/05/17 07:24 Band Neutrophils % 2.0 % 06/05/17 07:24 Lymphocytes % (Manual) 1.0 % (13.4-35.0) L 06/05/17 07:24 Reactive Lymphs % (Man) 0 % 06/05/17 07:24 Monocytes % (Manual) 1.0 % (0.0-7.3) 06/05/17 07:24 Eosinophils % (Manual) 0 % (0.0-4.3) 06/05/17 07:24 Basophils % (Manual) 0 % (0.0-1.8) 06/05/17 07:24 Metamyelocytes % 0 % 06/05/17 07:24 Myelocytes % 0 % 06/05/17 07:24 Promyelocytes % 0 % 06/05/17 07:24 Blast Cells % 0 % 06/05/17 07:24 Nucleated RBC % Not Reportable 06/05/17 07:24 Seg Neutrophils # 10.8 K/mm3 (1.8-7.7) H 06/06/17 07:07 Seg Neutrophils # Man 12.9 K/mm3 (1.8-7.7) H 06/05/17 07:24 Band Neutrophils # 0.3 K/mm3 06/05/17 07:24 Lymphocytes # (Manual) 0.1 K/mm3 (1.2-5.4) L 06/05/17 07:24 Abs React Lymphs (Man) 0.0 K/mm3 06/05/17 07:24 Monocytes # (Manual) 0.1 K/mm3 (0.0-0.8) 06/05/17 07:24 Eosinophils # (Manual) 0.0 K/mm3 (0.0-0.4) 06/05/17 07:24 Basophils # (Manual) 0.0 K/mm3 (0.0-0.1) 06/05/17 07:24 Metamyelocytes # 0.0 K/mm3 06/05/17 07:24 Myelocytes # 0.0 K/mm3 06/05/17 07:24 Promyelocytes # 0.0 K/mm3 06/05/17 07:24 Blast Cells # 0.0 K/mm3 06/05/17 07:24 WBC Morphology Not Reportable 06/05/17 07:24 Hypersegmented Neuts Not Reportable 06/05/17 07:24 Hyposegmented Neuts Not Reportable 06/05/17 07:24 Hypogranular Neuts Not Reportable 06/05/17 07:24 Smudge Cells Not Reportable 06/05/17 07:24 Toxic Granulation Not Reportable 06/05/17 07:24 Toxic Vacuolation Not Reportable 06/05/17 07:24 Dohle Bodies Not Reportable 06/05/17 07:24 Pelger-Huet Anomaly Not Reportable 06/05/17 07:24 Ruddy Rods Not Reportable 06/05/17 07:24 Platelet Estimate Consistent w auto 06/05/17 07:24 Clumped Platelets Not Reportable 06/05/17 07:24 Plt Clumps, EDTA Not Reportable 06/05/17 07:24 Large Platelets Not Reportable 06/05/17 07:24 Giant Platelets Not Reportable 06/05/17 07:24 Platelet Satelliting Not Reportable 06/05/17 07:24 Plt Morphology Comment Not Reportable 06/05/17 07:24 RBC Morphology Normal 06/05/17 07:24 Dimorphic RBCs Not Reportable 06/05/17 07:24 Polychromasia Not Reportable 06/05/17 07:24 Hypochromasia Not Reportable 06/05/17 07:24 Poikilocytosis Not Reportable 06/05/17 07:24 Anisocytosis Not Reportable 06/05/17 07:24 Microcytosis Not Reportable 06/05/17 07:24 Macrocytosis Not Reportable 06/05/17 07:24 Spherocytes Not Reportable 06/05/17 07:24 Pappenheimer Bodies Not Reportable 06/05/17 07:24 Sickle Cells Not Reportable 06/05/17 07:24 Target Cells Not Reportable 06/05/17 07:24 Tear Drop Cells Not Reportable 06/05/17 07:24 Ovalocytes Not Reportable 06/05/17 07:24 Helmet Cells Not Reportable 06/05/17 07:24 [place] Bodies Not Reportable 06/05/17 07:24 [place] Rings Not Reportable 06/05/17 07:24 [place] Cells Not Reportable 06/05/17 07:24 Bite Cells Not Reportable 06/05/17 07:24 Crenated Cell Not Reportable 06/05/17 07:24 Elliptocytes Not Reportable 06/05/17 07:24 Acanthocytes (Spur) Not Reportable 06/05/17 07:24 Rouleaux Not Reportable 06/05/17 07:24 Hemoglobin C Crystals Not Reportable 06/05/17 07:24 Schistocytes Not Reportable 06/05/17 07:24 Malaria parasites Not Reportable 06/05/17 07:24 Maciej Bodies Not Reportable 06/05/17 07:24 Hem Pathologist Commnt No 06/05/17 07:24 PT 13.0 Sec. (12.2-14.9) 06/03/17 23:15 INR 0.99 (0.87-1.13) 06/03/17 23:15 APTT 36.7 Sec. (24.2-36.6) H 06/03/17 23:15 POC ABG pH 7.428 (7.35-7.45) 06/04/17 05:41 POC ABG pCO2 33.7 (35-45) L 06/04/17 05:41 POC ABG pO2 87 (80-105) 06/04/17 05:41 POC ABG HCO3 22.3 06/04/17 05:41 POC ABG Total CO2 23 06/04/17 05:41 POC ABG O2 Sat 97 06/04/17 05:41 POC ABG Base Excess -2 06/04/17 05:41 FiO2 32 % 06/04/17 05:41 Sodium 147 mmol/L (137-145) H 06/06/17 07:07 Potassium 5.0 mmol/L (3.6-5.0) D 06/06/17 07:07 Chloride 111.1 mmol/L (98-107) H 06/06/17 07:07 Carbon Dioxide 23 mmol/L (22-30) 06/06/17 07:07 Anion Gap 18 mmol/L 06/06/17 07:07 BUN 40 mg/dL (7-17) H 06/06/17 07:07 Creatinine 1.7 mg/dL (0.7-1.2) H 06/06/17 07:07 Estimated GFR 29 ml/min 06/06/17 07:07 BUN/Creatinine Ratio 23.52 % 06/06/17 07:07 Glucose 127 mg/dL (65-100) H 06/06/17 07:07 POC Glucose 215 (70-105) H 06/06/17 11:44 Lactic Acid 0.90 mmol/L (0.7-2.0) 06/04/17 02:11 Calcium 10.7 mg/dL (8.4-10.2) H 06/06/17 07:07 Total Bilirubin 0.40 mg/dL (0.1-1.2) 06/03/17 23:15 AST 14 units/L (5-40) 06/03/17 23:15 ALT 7 units/L (7-56) 06/03/17 23:15 Alkaline Phosphatase 95 units/L (35-129) 06/03/17 23:15 Troponin T < 0.010 ng/mL (0.00-0.029) 06/03/17 23:15 Total Protein 8.5 g/dL (6.3-8.2) H 06/03/17 23:15 Albumin 3.6 g/dL (3.9-5) L 06/03/17 23:15 Albumin/Globulin Ratio 0.7 % 06/03/17 23:15 Urine Color Yellow (Yellow) 06/04/17 00:11 Urine Turbidity Slightly-cloudy (Clear) 06/04/17 00:11 Urine pH 8.0 (5.0-7.0) H 06/04/17 00:11 Ur Specific [place] 1.013 (1.003-1.030) 06/04/17 00:11 Urine Protein 100 mg/dl mg/dL (Negative) 06/04/17 00:11 Urine Glucose (UA) Neg mg/dL (Negative) 06/04/17 00:11 Urine Ketones Neg mg/dL (Negative) 06/04/17 00:11 Urine Blood Neg (Negative) 06/04/17 00:11 Urine Nitrite Neg (Negative) 06/04/17 00:11 Urine Bilirubin Neg (Negative) 06/04/17 00:11 Urine Urobilinogen < 2.0 mg/dL (<2.0) 06/04/17 00:11 Ur Leukocyte Esterase Neg (Negative) 06/04/17 00:11 Urine WBC (Auto) 2.0 /HPF (0.0-6.0) 06/04/17 00:11 Urine RBC (Auto) 5.0 /HPF (0.0-6.0) 06/04/17 00:11 U Epithel Cells (Auto) 1.0 /HPF (0-13.0) 06/04/17 00:11 Urine Bacteria (Auto) 1+ /HPF (Negative) 06/04/17 00:11 Hyaline Casts 1 /LPF 06/04/17 00:11 Urine Mucus Few /HPF 06/04/17 00:11 Blood Type A POSITIVE 06/03/17 23:15 Antibody Screen TNR 06/03/17 23:15 KAYLA Antibody Screen Negative 06/03/17 23:15 - Imaging and Cardiology Chest x-ray: image reviewed (No chenge from base line) CT Scan - head: report reviewed
[2017-06-06] MEDS: APRESOLINE PO SCH ×2 (15:00→22:21)
[2017-06-06] MEDS: ARICEPT PO SCH (22:21)
[2017-06-06] MEDS: VALIUM PO SCH (22:22)
[2017-06-07] MEDS: DUONEB *Not for PRN Use IH SCH ×3 (08:38→20:18)
[2017-06-07] MEDS: APRESOLINE PO SCH ×3 (08:42→20:45)
[2017-06-07] MEDS: FEOSOL PO SCH (10:20)
[2017-06-07] MEDS: SINGULAIR PO SCH (10:20)
[2017-06-07] MEDS: NORVASC PO SCH (10:20)
[2017-06-07] MEDS: LASIX PO SCH (10:20)
[2017-06-07] MEDS: VITAMIN C PO SCH (10:20)
[2017-06-07] MEDS: PROTONIX PO SCH (10:20)
--- NOTE | 2017-06-07 11:39 | XRay Report ---
X-RAY FACIAL BONES FOUR VIEWS: 06/07/17 08:59:00 CLINICAL: Fall and facial pain. Laceration of the right eye. FINDINGS: The facial bones are intact. No fracture. Sinuses are clear. Normal soft tissues. IMPRESSION: Normal.
--- NOTE | 2017-06-07 14:04 | Progress Note ---
Assessment and Plan Assessment and plan: Patient time was spent with assessment after fall requiring review of data x- rays skull film and neurologic exam. Follow-up serial neurologic exams which are completed in 30 minute intervals. Total Time Spent with Patient (Minutes): 30 - Patient Problems (1) Hematoma Current Visit: Yes Status: Acute Plan to address problem: Hematoma above right eye should heal will apply cool compress. Follow-up skull film. Cerebral evaluation neurologic evaluation. (2) Encephalopathy Current Visit: Yes Status: Acute Plan to address problem: This is most likely secondary to dementia. Limited secondary to language barrier but remains confused as per family appears to be dementia. Patient has significant debility will probably need placement. Physical therapy. (3) Pneumonia Current Visit: Yes Status: Acute Qualifiers: Pneumonia type: P Aspiration pneumonia type: A Laterality: L Lung location: L (4) Fall Current Visit: Yes Status: Acute Qualifiers: Encounter type: E Plan to address problem: Fall secondary to dementia confusion encephalopathy. Patient now has calm will give Ativan when necessary for agitation. Patient is pulled Goldstein catheter out we'll leave out for now. Increased risk of doing any serious harm patient may pull out again secondary to dementia and has not needed it up to this point. (5) Diabetes 1.5, managed as type 2 Current Visit: Yes Status: Acute Plan to address problem: Teased have fair control of diabetes. 216 126 and 112. History Interval history: Patient Hospital course complicated today bile fall. Patient attempted to get out of bed feel he had. Develop hematoma right zygomatic process. Resting comfortably now. Hospitalist Physical - Constitutional Vitals: Temp Pulse Resp BP Pulse Ox 98.3 F 112 H 20 121/55 96 06/07/17 08:51 06/07/17 13:49 06/07/17 13:49 06/07/17 10:20 06/07/17 08:51 General appearance: Present: no acute distress - EENT Eyes: Present: PERRL, EOM intact ENT: hearing intact, clear oral mucosa, other (myotome a most lateral superior aspect of zygomatic process. Tender no bleeding.) - Neck Neck: Present: supple, normal ROM - Respiratory Respiratory effort: normal Respiratory: bilateral: CTA - Extremities Extremities: no ischemia, pulses intact, pulses symmetrical Peripheral Pulses: within normal limits - Abdominal General gastrointestinal: soft, non-tender, non-distended, other (scaphoid), no hypoactive bowel sounds, no absent bowel sounds, no splenomegaly - Integumentary Integumentary: Present: clear, warm, dry - Psychiatric Psychiatric: appropriate mood/affect, other (poor cognition.) - Neurologic Neurologic: CNII-XII intact, moves all extremities Results - Labs CBC & Chem 7: 06/06/17 07:07 06/06/17 07:07 Labs: Laboratory Last Values WBC 12.1 K/mm3 (4.5-11.0) H 06/06/17 07:07 RBC 3.86 M/mm3 (3.65-5.03) 06/06/17 07:07 Hgb 10.7 gm/dl (10.1-14.3) 06/06/17 07:07 Hct 33.4 % (30.3-42.9) 06/06/17 07:07 MCV 87 fl (79-97) 06/06/17 07:07 MCH 28 pg (28-32) 06/06/17 07:07 MCHC 32 % (30-34) 06/06/17 07:07 RDW 14.5 % (13.2-15.2) 06/06/17 07:07 Plt Count 217 K/mm3 (140-440) 06/06/17 07:07 Lymph % (Auto) 6.6 % (13.4-35.0) L 06/06/17 07:07 [place] % (Auto) 3.6 % (0.0-7.3) 06/06/17 07:07 Eos % (Auto) 0.1 % (0.0-4.3) 06/06/17 07:07 Baso % (Auto) 0.5 % (0.0-1.8) 06/06/17 07:07 Lymph # 0.8 K/mm3 (1.2-5.4) L 06/06/17 07:07 [place] # 0.4 K/mm3 (0.0-0.8) 06/06/17 07:07 Eos # 0.0 K/mm3 (0.0-0.4) 06/06/17 07:07 Baso # 0.1 K/mm3 (0.0-0.1) 06/06/17 07:07 Add Manual Diff Complete 06/05/17 07:24 Total Counted 100 06/05/17 07:24 Seg Neutrophils % 89.2 % (40.0-70.0) H 06/06/17 07:07 Seg Neuts % (Manual) 96.0 % (40.0-70.0) H 06/05/17 07:24 Band Neutrophils % 2.0 % 06/05/17 07:24 Lymphocytes % (Manual) 1.0 % (13.4-35.0) L 06/05/17 07:24 Reactive Lymphs % (Man) 0 % 06/05/17 07:24 Monocytes % (Manual) 1.0 % (0.0-7.3) 06/05/17 07:24 Eosinophils % (Manual) 0 % (0.0-4.3) 06/05/17 07:24 Basophils % (Manual) 0 % (0.0-1.8) 06/05/17 07:24 Metamyelocytes % 0 % 06/05/17 07:24 Myelocytes % 0 % 06/05/17 07:24 Promyelocytes % 0 % 06/05/17 07:24 Blast Cells % 0 % 06/05/17 07:24 Nucleated RBC % Not Reportable 06/05/17 07:24 Seg Neutrophils # 10.8 K/mm3 (1.8-7.7) H 06/06/17 07:07 Seg Neutrophils # Man 12.9 K/mm3 (1.8-7.7) H 06/05/17 07:24 Band Neutrophils # 0.3 K/mm3 06/05/17 07:24 Lymphocytes # (Manual) 0.1 K/mm3 (1.2-5.4) L 06/05/17 07:24 Abs React Lymphs (Man) 0.0 K/mm3 06/05/17 07:24 Monocytes # (Manual) 0.1 K/mm3 (0.0-0.8) 06/05/17 07:24 Eosinophils # (Manual) 0.0 K/mm3 (0.0-0.4) 06/05/17 07:24 Basophils # (Manual) 0.0 K/mm3 (0.0-0.1) 06/05/17 07:24 Metamyelocytes # 0.0 K/mm3 06/05/17 07:24 Myelocytes # 0.0 K/mm3 06/05/17 07:24 Promyelocytes # 0.0 K/mm3 06/05/17 07:24 Blast Cells # 0.0 K/mm3 06/05/17 07:24 WBC Morphology Not Reportable 06/05/17 07:24 Hypersegmented Neuts Not Reportable 06/05/17 07:24 Hyposegmented Neuts Not Reportable 06/05/17 07:24 Hypogranular Neuts Not Reportable 06/05/17 07:24 Smudge Cells Not Reportable 06/05/17 07:24 Toxic Granulation Not Reportable 06/05/17 07:24 Toxic Vacuolation Not Reportable 06/05/17 07:24 Dohle Bodies Not Reportable 06/05/17 07:24 Pelger-Huet Anomaly Not Reportable 06/05/17 07:24 Ruddy Rods Not Reportable 06/05/17 07:24 Platelet Estimate Consistent w auto 06/05/17 07:24 Clumped Platelets Not Reportable 06/05/17 07:24 Plt Clumps, EDTA Not Reportable 06/05/17 07:24 Large Platelets Not Reportable 06/05/17 07:24 Giant Platelets Not Reportable 06/05/17 07:24 Platelet Satelliting Not Reportable 06/05/17 07:24 Plt Morphology Comment Not Reportable 06/05/17 07:24 RBC Morphology Normal 06/05/17 07:24 Dimorphic RBCs Not Reportable 06/05/17 07:24 Polychromasia Not Reportable 06/05/17 07:24 Hypochromasia Not Reportable 06/05/17 07:24 Poikilocytosis Not Reportable 06/05/17 07:24 Anisocytosis Not Reportable 06/05/17 07:24 Microcytosis Not Reportable 06/05/17 07:24 Macrocytosis Not Reportable 06/05/17 07:24 Spherocytes Not Reportable 06/05/17 07:24 Pappenheimer Bodies Not Reportable 06/05/17 07:24 Sickle Cells Not Reportable 06/05/17 07:24 Target Cells Not Reportable 06/05/17 07:24 Tear Drop Cells Not Reportable 06/05/17 07:24 Ovalocytes Not Reportable 06/05/17 07:24 Helmet Cells Not Reportable 06/05/17 07:24 [place] Bodies Not Reportable 06/05/17 07:24 [place] Rings Not Reportable 06/05/17 07:24 [place] Cells Not Reportable 06/05/17 07:24 Bite Cells Not Reportable 06/05/17 07:24 Crenated Cell Not Reportable 06/05/17 07:24 Elliptocytes Not Reportable 06/05/17 07:24 Acanthocytes (Spur) Not Reportable 06/05/17 07:24 Rouleaux Not Reportable 06/05/17 07:24 Hemoglobin C Crystals Not Reportable 06/05/17 07:24 Schistocytes Not Reportable 06/05/17 07:24 Malaria parasites Not Reportable 06/05/17 07:24 Maciej Bodies Not Reportable 06/05/17 07:24 Hem Pathologist Commnt No 06/05/17 07:24 PT 13.0 Sec. (12.2-14.9) 06/03/17 23:15 INR 0.99 (0.87-1.13) 06/03/17 23:15 APTT 36.7 Sec. (24.2-36.6) H 06/03/17 23:15 POC ABG pH 7.428 (7.35-7.45) 06/04/17 05:41 POC ABG pCO2 33.7 (35-45) L 06/04/17 05:41 POC ABG pO2 87 (80-105) 06/04/17 05:41 POC ABG HCO3 22.3 06/04/17 05:41 POC ABG Total CO2 23 06/04/17 05:41 POC ABG O2 Sat 97 06/04/17 05:41 POC ABG Base Excess -2 06/04/17 05:41 FiO2 32 % 06/04/17 05:41 Sodium 147 mmol/L (137-145) H 06/06/17 07:07 Potassium 5.0 mmol/L (3.6-5.0) D 06/06/17 07:07 Chloride 111.1 mmol/L (98-107) H 06/06/17 07:07 Carbon Dioxide 23 mmol/L (22-30) 06/06/17 07:07 Anion Gap 18 mmol/L 06/06/17 07:07 BUN 40 mg/dL (7-17) H 06/06/17 07:07 Creatinine 1.7 mg/dL (0.7-1.2) H 06/06/17 07:07 Estimated GFR 29 ml/min 06/06/17 07:07 BUN/Creatinine Ratio 23.52 % 06/06/17 07:07 Glucose 127 mg/dL (65-100) H 06/06/17 07:07 POC Glucose 227 (70-105) H 06/06/17 16:36 Lactic Acid 0.90 mmol/L (0.7-2.0) 06/04/17 02:11 Calcium 10.7 mg/dL (8.4-10.2) H 06/06/17 07:07 Total Bilirubin 0.40 mg/dL (0.1-1.2) 06/03/17 23:15 AST 14 units/L (5-40) 06/03/17 23:15 ALT 7 units/L (7-56) 06/03/17 23:15 Alkaline Phosphatase 95 units/L (35-129) 06/03/17 23:15 Troponin T < 0.010 ng/mL (0.00-0.029) 06/03/17 23:15 Total Protein 8.5 g/dL (6.3-8.2) H 06/03/17 23:15 Albumin 3.6 g/dL (3.9-5) L 06/03/17 23:15 Albumin/Globulin Ratio 0.7 % 06/03/17 23:15 Urine Color Yellow (Yellow) 06/04/17 00:11 Urine Turbidity Slightly-cloudy (Clear) 06/04/17 00:11 Urine pH 8.0 (5.0-7.0) H 06/04/17 00:11 Ur Specific [place] 1.013 (1.003-1.030) 06/04/17 00:11 Urine Protein 100 mg/dl mg/dL (Negative) 06/04/17 00:11 Urine Glucose (UA) Neg mg/dL (Negative) 06/04/17 00:11 Urine Ketones Neg mg/dL (Negative) 06/04/17 00:11 Urine Blood Neg (Negative) 06/04/17 00:11 Urine Nitrite Neg (Negative) 06/04/17 00:11 Urine Bilirubin Neg (Negative) 06/04/17 00:11 Urine Urobilinogen < 2.0 mg/dL (<2.0) 06/04/17 00:11 Ur Leukocyte Esterase Neg (Negative) 06/04/17 00:11 Urine WBC (Auto) 2.0 /HPF (0.0-6.0) 06/04/17 00:11 Urine RBC (Auto) 5.0 /HPF (0.0-6.0) 06/04/17 00:11 U Epithel Cells (Auto) 1.0 /HPF (0-13.0) 06/04/17 00:11 Urine Bacteria (Auto) 1+ /HPF (Negative) 06/04/17 00:11 Hyaline Casts 1 /LPF 06/04/17 00:11 Urine Mucus Few /HPF 06/04/17 00:11 Blood Type A POSITIVE 06/03/17 23:15 Antibody Screen TNR 06/03/17 23:15 KAYLA Antibody Screen Negative 06/03/17 23:15
[2017-06-07] MEDS: ARICEPT PO SCH (21:51)
[2017-06-07] MEDS: VALIUM PO SCH (21:51)
[2017-06-08] MEDS: DUONEB *Not for PRN Use IH SCH ×3 (07:34→21:53)
[2017-06-08] MEDS: APRESOLINE PO SCH ×3 (09:11→21:34)
[2017-06-08] MEDS: NORVASC PO SCH (09:13)
[2017-06-08] MEDS: LASIX PO SCH (09:14)
[2017-06-08] MEDS: SINGULAIR PO SCH (09:15)
[2017-06-08] MEDS: FEOSOL PO SCH (09:15)
[2017-06-08] MEDS: VITAMIN C PO SCH (09:15)
[2017-06-08] MEDS: PROTONIX PO SCH (09:15)
[2017-06-08] MEDS: LEVAQUIN 750MG/150ML 750 MG/150 ML BAG IV SCH (09:22)
[2017-06-08] MEDS ORDERED: XANAX PO ONE (15:00)
--- NOTE | 2017-06-08 17:54 | Progress Note ---
Assessment and Plan Assessment and plan: --Status post fall/hematoma about right eye Swelling significantly improved, extensive facial bones no fracture noted Supportive care, fall precautions, physical therapy, restraints for safety as needed --Pneumonia/probably community-acquired Continue current antibiotics, oxygen titrated to O2 sats more than 90%, supportive care cultures negative to date --Metabolic and gastropathy; multifactorial, underlying infection, dementia advanced age reports it is her baseline supportive care --Hypertension; controlled Continue current antihypertensives and when necessary medications --Acute on chronic kidney disease stage III Stable, gentle hydration, avoid nephrotoxic medications, closely monitor renal function --2diabetes mellitus Diet-controlled, blood sugars range between 110-210 --Dementia; continue current medications --DVT prophylaxis; SCDs --Full CODE STATUS Closely monitor the patient and adjust the management as needed Possible discharge in 1-2 days if stable, DC with home health Plan of care discussed with the patient's and the nurse History Interval history: Patient seen and evaluated medical records reviewed No new events reported by the nursing staff Patient is alert and awake minimally communicative, is feeding breakfast Patient is not in acute distress Hospitalist Physical - Constitutional Vitals: Temp Pulse Resp BP Pulse Ox 99.2 F 103 H 18 102/63 97 06/08/17 10:00 06/08/17 14:33 06/08/17 14:33 06/08/17 10:00 06/08/17 10:00 General appearance: Present: no acute distress, cachectic, disheveled - EENT Eyes: Present: PERRL, EOM intact - Neck Neck: Present: supple, normal ROM - Respiratory Respiratory effort: normal Respiratory: bilateral: diminished, negative: rales, rhonchi - Cardiovascular Rhythm: regular Heart Sounds: Present: S1 & S2 - Extremities Extremities: no ischemia, pulses intact - Abdominal General gastrointestinal: soft, non-tender, non-distended, normal bowel sounds - Integumentary Integumentary: Present: clear, warm - Psychiatric Psychiatric: appropriate mood/affect, other (minimally communicative) - Neurologic Neurologic: moves all extremities Results - Labs CBC & Chem 7: 06/06/17 07:07 06/06/17 07:07 Labs: Laboratory Last Values WBC 12.1 K/mm3 (4.5-11.0) H 06/06/17 07:07 RBC 3.86 M/mm3 (3.65-5.03) 06/06/17 07:07 Hgb 10.7 gm/dl (10.1-14.3) 06/06/17 07:07 Hct 33.4 % (30.3-42.9) 06/06/17 07:07 MCV 87 fl (79-97) 06/06/17 07:07 MCH 28 pg (28-32) 06/06/17 07:07 MCHC 32 % (30-34) 06/06/17 07:07 RDW 14.5 % (13.2-15.2) 06/06/17 07:07 Plt Count 217 K/mm3 (140-440) 06/06/17 07:07 Lymph % (Auto) 6.6 % (13.4-35.0) L 06/06/17 07:07 [place] % (Auto) 3.6 % (0.0-7.3) 06/06/17 07:07 Eos % (Auto) 0.1 % (0.0-4.3) 06/06/17 07:07 Baso % (Auto) 0.5 % (0.0-1.8) 06/06/17 07:07 Lymph # 0.8 K/mm3 (1.2-5.4) L 06/06/17 07:07 [place] # 0.4 K/mm3 (0.0-0.8) 06/06/17 07:07 Eos # 0.0 K/mm3 (0.0-0.4) 06/06/17 07:07 Baso # 0.1 K/mm3 (0.0-0.1) 06/06/17 07:07 Add Manual Diff Complete 06/05/17 07:24 Total Counted 100 06/05/17 07:24 Seg Neutrophils % 89.2 % (40.0-70.0) H 06/06/17 07:07 Seg Neuts % (Manual) 96.0 % (40.0-70.0) H 06/05/17 07:24 Band Neutrophils % 2.0 % 06/05/17 07:24 Lymphocytes % (Manual) 1.0 % (13.4-35.0) L 06/05/17 07:24 Reactive Lymphs % (Man) 0 % 06/05/17 07:24 Monocytes % (Manual) 1.0 % (0.0-7.3) 06/05/17 07:24 Eosinophils % (Manual) 0 % (0.0-4.3) 06/05/17 07:24 Basophils % (Manual) 0 % (0.0-1.8) 06/05/17 07:24 Metamyelocytes % 0 % 06/05/17 07:24 Myelocytes % 0 % 06/05/17 07:24 Promyelocytes % 0 % 06/05/17 07:24 Blast Cells % 0 % 06/05/17 07:24 Nucleated RBC % Not Reportable 06/05/17 07:24 Seg Neutrophils # 10.8 K/mm3 (1.8-7.7) H 06/06/17 07:07 Seg Neutrophils # Man 12.9 K/mm3 (1.8-7.7) H 06/05/17 07:24 Band Neutrophils # 0.3 K/mm3 06/05/17 07:24 Lymphocytes # (Manual) 0.1 K/mm3 (1.2-5.4) L 06/05/17 07:24 Abs React Lymphs (Man) 0.0 K/mm3 06/05/17 07:24 Monocytes # (Manual) 0.1 K/mm3 (0.0-0.8) 06/05/17 07:24 Eosinophils # (Manual) 0.0 K/mm3 (0.0-0.4) 06/05/17 07:24 Basophils # (Manual) 0.0 K/mm3 (0.0-0.1) 06/05/17 07:24 Metamyelocytes # 0.0 K/mm3 06/05/17 07:24 Myelocytes # 0.0 K/mm3 06/05/17 07:24 Promyelocytes # 0.0 K/mm3 06/05/17 07:24 Blast Cells # 0.0 K/mm3 06/05/17 07:24 WBC Morphology Not Reportable 06/05/17 07:24 Hypersegmented Neuts Not Reportable 06/05/17 07:24 Hyposegmented Neuts Not Reportable 06/05/17 07:24 Hypogranular Neuts Not Reportable 06/05/17 07:24 Smudge Cells Not Reportable 06/05/17 07:24 Toxic Granulation Not Reportable 06/05/17 07:24 Toxic Vacuolation Not Reportable 06/05/17 07:24 Dohle Bodies Not Reportable 06/05/17 07:24 Pelger-Huet Anomaly Not Reportable 06/05/17 07:24 Ruddy Rods Not Reportable 06/05/17 07:24 Platelet Estimate Consistent w auto 06/05/17 07:24 Clumped Platelets Not Reportable 06/05/17 07:24 Plt Clumps, EDTA Not Reportable 06/05/17 07:24 Large Platelets Not Reportable 06/05/17 07:24 Giant Platelets Not Reportable 06/05/17 07:24 Platelet Satelliting Not Reportable 06/05/17 07:24 Plt Morphology Comment Not Reportable 06/05/17 07:24 RBC Morphology Normal 06/05/17 07:24 Dimorphic RBCs Not Reportable 06/05/17 07:24 Polychromasia Not Reportable 06/05/17 07:24 Hypochromasia Not Reportable 06/05/17 07:24 Poikilocytosis Not Reportable 06/05/17 07:24 Anisocytosis Not Reportable 06/05/17 07:24 Microcytosis Not Reportable 06/05/17 07:24 Macrocytosis Not Reportable 06/05/17 07:24 Spherocytes Not Reportable 06/05/17 07:24 Pappenheimer Bodies Not Reportable 06/05/17 07:24 Sickle Cells Not Reportable 06/05/17 07:24 Target Cells Not Reportable 06/05/17 07:24 Tear Drop Cells Not Reportable 06/05/17 07:24 Ovalocytes Not Reportable 06/05/17 07:24 Helmet Cells Not Reportable 06/05/17 07:24 [place] Bodies Not Reportable 06/05/17 07:24 [place] Rings Not Reportable 06/05/17 07:24 [place] Cells Not Reportable 06/05/17 07:24 Bite Cells Not Reportable 06/05/17 07:24 Crenated Cell Not Reportable 06/05/17 07:24 Elliptocytes Not Reportable 06/05/17 07:24 Acanthocytes (Spur) Not Reportable 06/05/17 07:24 Rouleaux Not Reportable 06/05/17 07:24 Hemoglobin C Crystals Not Reportable 06/05/17 07:24 Schistocytes Not Reportable 06/05/17 07:24 Malaria parasites Not Reportable 06/05/17 07:24 Maciej Bodies Not Reportable 06/05/17 07:24 Hem Pathologist Commnt No 06/05/17 07:24 PT 13.0 Sec. (12.2-14.9) 06/03/17 23:15 INR 0.99 (0.87-1.13) 06/03/17 23:15 APTT 36.7 Sec. (24.2-36.6) H 06/03/17 23:15 POC ABG pH 7.428 (7.35-7.45) 06/04/17 05:41 POC ABG pCO2 33.7 (35-45) L 06/04/17 05:41 POC ABG pO2 87 (80-105) 06/04/17 05:41 POC ABG HCO3 22.3 06/04/17 05:41 POC ABG Total CO2 23 06/04/17 05:41 POC ABG O2 Sat 97 06/04/17 05:41 POC ABG Base Excess -2 06/04/17 05:41 FiO2 32 % 06/04/17 05:41 Sodium 147 mmol/L (137-145) H 06/06/17 07:07 Potassium 5.0 mmol/L (3.6-5.0) D 06/06/17 07:07 Chloride 111.1 mmol/L (98-107) H 06/06/17 07:07 Carbon Dioxide 23 mmol/L (22-30) 06/06/17 07:07 Anion Gap 18 mmol/L 06/06/17 07:07 BUN 40 mg/dL (7-17) H 06/06/17 07:07 Creatinine 1.7 mg/dL (0.7-1.2) H 06/06/17 07:07 Estimated GFR 29 ml/min 06/06/17 07:07 BUN/Creatinine Ratio 23.52 % 06/06/17 07:07 Glucose 127 mg/dL (65-100) H 06/06/17 07:07 POC Glucose 227 (70-105) H 06/06/17 16:36 Lactic Acid 0.90 mmol/L (0.7-2.0) 06/04/17 02:11 Calcium 10.7 mg/dL (8.4-10.2) H 06/06/17 07:07 Total Bilirubin 0.40 mg/dL (0.1-1.2) 06/03/17 23:15 AST 14 units/L (5-40) 06/03/17 23:15 ALT 7 units/L (7-56) 06/03/17 23:15 Alkaline Phosphatase 95 units/L (35-129) 06/03/17 23:15 Troponin T < 0.010 ng/mL (0.00-0.029) 06/03/17 23:15 Total Protein 8.5 g/dL (6.3-8.2) H 06/03/17 23:15 Albumin 3.6 g/dL (3.9-5) L 06/03/17 23:15 Albumin/Globulin Ratio 0.7 % 06/03/17 23:15 Urine Color Yellow (Yellow) 06/04/17 00:11 Urine Turbidity Slightly-cloudy (Clear) 06/04/17 00:11 Urine pH 8.0 (5.0-7.0) H 06/04/17 00:11 Ur Specific [place] 1.013 (1.003-1.030) 06/04/17 00:11 Urine Protein 100 mg/dl mg/dL (Negative) 06/04/17 00:11 Urine Glucose (UA) Neg mg/dL (Negative) 06/04/17 00:11 Urine Ketones Neg mg/dL (Negative) 06/04/17 00:11 Urine Blood Neg (Negative) 06/04/17 00:11 Urine Nitrite Neg (Negative) 06/04/17 00:11 Urine Bilirubin Neg (Negative) 06/04/17 00:11 Urine Urobilinogen < 2.0 mg/dL (<2.0) 06/04/17 00:11 Ur Leukocyte Esterase Neg (Negative) 06/04/17 00:11 Urine WBC (Auto) 2.0 /HPF (0.0-6.0) 06/04/17 00:11 Urine RBC (Auto) 5.0 /HPF (0.0-6.0) 06/04/17 00:11 U Epithel Cells (Auto) 1.0 /HPF (0-13.0) 06/04/17 00:11 Urine Bacteria (Auto) 1+ /HPF (Negative) 06/04/17 00:11 Hyaline Casts 1 /LPF 06/04/17 00:11 Urine Mucus Few /HPF 06/04/17 00:11 Blood Type A POSITIVE 06/03/17 23:15 Antibody Screen TNR 06/03/17 23:15 KAYLA Antibody Screen Negative 06/03/17 23:15
[2017-06-08] MEDS: ARICEPT PO SCH (21:35)
[2017-06-08] MEDS: VALIUM PO SCH (21:36)
[2017-06-09 08:13] LABS: Basophils % (Auto) 0.4 % (0.0-1.8); Eosinophils % (Auto) 0.5 % (0.0-4.3); Hematocrit 29.1 % (30.3-42.9); Hemoglobin 9.4 gm/dl (10.1-14.3); Mean Corpuscular HGB Conc 33 % (30-34); Mean Corpuscular Hemoglobin 28 pg (28-32); Mean Corpuscular Volume 86 fl (79-97); Platelet Count 277 K/mm3 (140-440); Red Blood Count 3.38 M/mm3 (3.65-5.03); Red Cell Distribution Width 14.6 % (13.2-15.2); White Blood Count 11.2 K/mm3 (4.5-11.0)
[2017-06-09] MEDS: APRESOLINE PO SCH ×3 (08:28→20:38)
[2017-06-09 08:29] LABS: BUN/Creatinine Ratio 21.17; Calcium 10.3 mg/dL (8.4-10.2); Chloride 105.7 mmol/L (98-107); Potassium 3.9 mmol/L (3.6-5.0)
[2017-06-09] MEDS: DUONEB *Not for PRN Use IH SCH ×3 (08:44→19:28)
--- NOTE | 2017-06-09 09:05 | Query- Pneumonia Documented ---
Hung Torres Date:___06/09/2017 Medical Stenographer/CDS:___[place] Phone#:___[phone] Exercise your independent professional judgment when responding to query. Questions asked do not imply a particular answer is desired or expected. We greatly appreciate your clarification on this issue. Clinical Documentation States: 82 Year old female was admitted on 06/03/2017. The ED note states "Patient is a 82-year-old female here with altered mental status. She appears chronically ill she is cachectic appearing no visible trauma. ED Disposition Clinical Impression: Pneumonia, Encephalopathy" The hospitalist progress note on 06/07/2017 states "(3) Pneumonia Current Visit: Yes Status: Acute Qualifiers: Pneumonia type: P Aspiration pneumonia type: A Laterality: L Lung location: L." The hospitalist progress note on 06/08/17 states "--Pneumonia/probably community-acquired Continue current antibiotics, oxygen titrated to O2 sats more than 90%, supportive care cultures negative to date" Clinical Findings Show: Antibiotics: Levaguin Please further specify known or suspected Etiology: [ ] Aspiration Pneumonia [ ] Gram Negative Pneumonia [ ] Gram Positive Pneumonia [ x] Pseudomonas Pneumonia possible [ ] MRSA - related Pneumonia [ ] Viral Pneumonia [ ] Candidal Pneumonia [ ] Other: [ ] Unable to determine Present on Admission: [ x] Yes (Y) [ ] Clinically undeterminable (W) [ ] No (N) Please also document response in your Progress Notes and/or Discharge Summary and indicate if the condition was present on admission. MOJGAN
--- NOTE | 2017-06-09 09:14 | Query- Nutrition ---
Hung Milner__[place] Date:____06/09/2017 Metal Casket Assembler/CDS:___[place] Phone#:___[phone] Exercise your independent professional judgment when responding to query. Questions asked do not imply a particular answer is desired or expected. We greatly appreciate your clarification on this issue. Clinical Documentation States: 82 Year old female was admitted on 06/03/2017. The ED note states "She appears chronically ill she is cachectic appearing no visible trauma." The hospitalist progress note on 06/05/2017 states "Debility -Physical therapy" Clinical Findings Show: BMI: 15.6 Albumin 3.6 Please select the most appropriate option 3 [] Mild Malnutrition [] Mild - Moderate Malnutrition [x] Moderate - Severe Malnutrition [] Severe Malnutrition Serum Albumin 2.8 to 3.4 g/dl or Pre-albumin 5 to 17 mg/dl1,2 Inadequate nutritional intake1,2,3,4 NPO > 5 days Weight loss: 5% in 1 month or 7.5% in 3 months or 10% in 6 months1, 3,4 BMI 16 to 18.4 or Weight <90% of ideal body weight1,2,3,4 Serum Albumin < 2.8 g/ dl1,2 Lymphocytes < 1500/ L2 Inadequate nutritional intake3, high stress e.g. major trauma, sepsis,pancreatitis, [place] etc. Decubitus ulcers1,2, , skin breakdown2, easy hair pluckability2 Weight <80% standard for height2 Triceps skin fold <3 mm2 Mid-arm muscle circumference <15 cm2 Creatinine-height index <60% standard2 [ ] Cachexia [ ] Emaciated w/Malnutrition [ ] Other: [ ] Unable to determine [ ] Comment/Explanation: Present on Admission: [ x] Yes (Y) [ ] Clinically undeterminable (W) [ ] No (N) Please also document response in your Progress Notes and/or Discharge Summary and indicate if the condition was present on admission. MTDD
--- NOTE | 2017-06-09 09:15 | Progress Note ---
Assessment and Plan Assessment and plan: --Pneumonia/probably community-acquired Continue current antibiotics, oxygen titrated to O2 sats more than 90%, supportive care cultures negative to date --Leukocytosis secondary to pneumonia; trending down --Status post fall/hematoma about right eye Swelling significantly improved, extensive facial bones no fracture noted Supportive care, fall precautions, physical therapy, restraints for safety as needed --Metabolic encephalopathy; multifactorial, underlying infection, dementia advanced age reports it is her baseline supportive care --Hypertension; controlled Continue current antihypertensives and when necessary medications --Acute on chronic kidney disease stage III Stable, gentle hydration, avoid nephrotoxic medications, closely monitor renal function --2diabetes mellitus Diet-controlled, blood sugars range between 110-210 --Dementia; continue current medications --DVT prophylaxis; SCDs --Full CODE STATUS Patient is bedbound at home, consider physical therapy as needed Closely monitor the patient, possible discharge in 1-2 days with home health History Interval history: Patient seen and evaluated medical records reviewed Patient is comfortable sleeping easily awakens No new events reported by the nursing staff, vital signs reviewed and stable Hospitalist Physical - Constitutional Vitals: Temp Pulse Resp BP Pulse Ox 98.4 F 108 H 16 114/69 98 06/08/17 20:00 06/09/17 08:49 06/09/17 08:49 06/08/17 20:00 06/08/17 20:00 General appearance: Present: no acute distress, cachectic, disheveled - EENT Eyes: Present: PERRL, EOM intact - Neck Neck: Present: supple, normal ROM - Respiratory Respiratory effort: normal Respiratory: negative: rales, rhonchi, wheezing - Cardiovascular Rhythm: regular Heart Sounds: Present: S1 & S2 - Extremities Extremities: no ischemia, pulses intact Peripheral Pulses: within normal limits - Abdominal General gastrointestinal: soft, non-tender, non-distended, normal bowel sounds - Integumentary Integumentary: Present: clear, warm - Psychiatric Psychiatric: appropriate mood/affect, other (confused at times, minimally communicative) - Neurologic Neurologic: moves all extremities Results - Labs CBC & Chem 7: 06/09/17 07:47 06/09/17 07:47 Labs: Laboratory Last Values WBC 11.2 K/mm3 (4.5-11.0) H 06/09/17 07:47 RBC 3.38 M/mm3 (3.65-5.03) L 06/09/17 07:47 Hgb 9.4 gm/dl (10.1-14.3) L 06/09/17 07:47 Hct 29.1 % (30.3-42.9) L 06/09/17 07:47 MCV 86 fl (79-97) 06/09/17 07:47 MCH 28 pg (28-32) 06/09/17 07:47 MCHC 33 % (30-34) 06/09/17 07:47 RDW 14.6 % (13.2-15.2) 06/09/17 07:47 Plt Count 277 K/mm3 (140-440) 06/09/17 07:47 Lymph % (Auto) 7.9 % (13.4-35.0) L 06/09/17 07:47 [place] % (Auto) 5.1 % (0.0-7.3) 06/09/17 07:47 Eos % (Auto) 0.5 % (0.0-4.3) 06/09/17 07:47 Baso % (Auto) 0.4 % (0.0-1.8) 06/09/17 07:47 Lymph # 0.9 K/mm3 (1.2-5.4) L 06/09/17 07:47 [place] # 0.6 K/mm3 (0.0-0.8) 06/09/17 07:47 Eos # 0.1 K/mm3 (0.0-0.4) 06/09/17 07:47 Baso # 0.0 K/mm3 (0.0-0.1) 06/09/17 07:47 Add Manual Diff Complete 06/05/17 07:24 Total Counted 100 06/05/17 07:24 Seg Neutrophils % 86.1 % (40.0-70.0) H 06/09/17 07:47 Seg Neuts % (Manual) 96.0 % (40.0-70.0) H 06/05/17 07:24 Band Neutrophils % 2.0 % 06/05/17 07:24 Lymphocytes % (Manual) 1.0 % (13.4-35.0) L 06/05/17 07:24 Reactive Lymphs % (Man) 0 % 06/05/17 07:24 Monocytes % (Manual) 1.0 % (0.0-7.3) 06/05/17 07:24 Eosinophils % (Manual) 0 % (0.0-4.3) 06/05/17 07:24 Basophils % (Manual) 0 % (0.0-1.8) 06/05/17 07:24 Metamyelocytes % 0 % 06/05/17 07:24 Myelocytes % 0 % 06/05/17 07:24 Promyelocytes % 0 % 06/05/17 07:24 Blast Cells % 0 % 06/05/17 07:24 Nucleated RBC % Not Reportable 06/05/17 07:24 Seg Neutrophils # 9.7 K/mm3 (1.8-7.7) H 06/09/17 07:47 Seg Neutrophils # Man 12.9 K/mm3 (1.8-7.7) H 06/05/17 07:24 Band Neutrophils # 0.3 K/mm3 06/05/17 07:24 Lymphocytes # (Manual) 0.1 K/mm3 (1.2-5.4) L 06/05/17 07:24 Abs React Lymphs (Man) 0.0 K/mm3 06/05/17 07:24 Monocytes # (Manual) 0.1 K/mm3 (0.0-0.8) 06/05/17 07:24 Eosinophils # (Manual) 0.0 K/mm3 (0.0-0.4) 06/05/17 07:24 Basophils # (Manual) 0.0 K/mm3 (0.0-0.1) 06/05/17 07:24 Metamyelocytes # 0.0 K/mm3 06/05/17 07:24 Myelocytes # 0.0 K/mm3 06/05/17 07:24 Promyelocytes # 0.0 K/mm3 06/05/17 07:24 Blast Cells # 0.0 K/mm3 06/05/17 07:24 WBC Morphology Not Reportable 06/05/17 07:24 Hypersegmented Neuts Not Reportable 06/05/17 07:24 Hyposegmented Neuts Not Reportable 06/05/17 07:24 Hypogranular Neuts Not Reportable 06/05/17 07:24 Smudge Cells Not Reportable 06/05/17 07:24 Toxic Granulation Not Reportable 06/05/17 07:24 Toxic Vacuolation Not Reportable 06/05/17 07:24 Dohle Bodies Not Reportable 06/05/17 07:24 Pelger-Huet Anomaly Not Reportable 06/05/17 07:24 Ruddy Rods Not Reportable 06/05/17 07:24 Platelet Estimate Consistent w auto 06/05/17 07:24 Clumped Platelets Not Reportable 06/05/17 07:24 Plt Clumps, EDTA Not Reportable 06/05/17 07:24 Large Platelets Not Reportable 06/05/17 07:24 Giant Platelets Not Reportable 06/05/17 07:24 Platelet Satelliting Not Reportable 06/05/17 07:24 Plt Morphology Comment Not Reportable 06/05/17 07:24 RBC Morphology Normal 06/05/17 07:24 Dimorphic RBCs Not Reportable 06/05/17 07:24 Polychromasia Not Reportable 06/05/17 07:24 Hypochromasia Not Reportable 06/05/17 07:24 Poikilocytosis Not Reportable 06/05/17 07:24 Anisocytosis Not Reportable 06/05/17 07:24 Microcytosis Not Reportable 06/05/17 07:24 Macrocytosis Not Reportable 06/05/17 07:24 Spherocytes Not Reportable 06/05/17 07:24 Pappenheimer Bodies Not Reportable 06/05/17 07:24 Sickle Cells Not Reportable 06/05/17 07:24 Target Cells Not Reportable 06/05/17 07:24 Tear Drop Cells Not Reportable 06/05/17 07:24 Ovalocytes Not Reportable 06/05/17 07:24 Helmet Cells Not Reportable 06/05/17 07:24 [place] Bodies Not Reportable 06/05/17 07:24 [place] Rings Not Reportable 06/05/17 07:24 [place] Cells Not Reportable 06/05/17 07:24 Bite Cells Not Reportable 06/05/17 07:24 Crenated Cell Not Reportable 06/05/17 07:24 Elliptocytes Not Reportable 06/05/17 07:24 Acanthocytes (Spur) Not Reportable 06/05/17 07:24 Rouleaux Not Reportable 06/05/17 07:24 Hemoglobin C Crystals Not Reportable 06/05/17 07:24 Schistocytes Not Reportable 06/05/17 07:24 Malaria parasites Not Reportable 06/05/17 07:24 Maciej Bodies Not Reportable 06/05/17 07:24 Hem Pathologist Commnt No 06/05/17 07:24 PT 13.0 Sec. (12.2-14.9) 06/03/17 23:15 INR 0.99 (0.87-1.13) 06/03/17 23:15 APTT 36.7 Sec. (24.2-36.6) H 06/03/17 23:15 POC ABG pH 7.428 (7.35-7.45) 06/04/17 05:41 POC ABG pCO2 33.7 (35-45) L 06/04/17 05:41 POC ABG pO2 87 (80-105) 06/04/17 05:41 POC ABG HCO3 22.3 06/04/17 05:41 POC ABG Total CO2 23 06/04/17 05:41 POC ABG O2 Sat 97 06/04/17 05:41 POC ABG Base Excess -2 06/04/17 05:41 FiO2 32 % 06/04/17 05:41 Sodium 143 mmol/L (137-145) 06/09/17 07:47 Potassium 3.9 mmol/L (3.6-5.0) D 06/09/17 07:47 Chloride 105.7 mmol/L (98-107) 06/09/17 07:47 Carbon Dioxide 24 mmol/L (22-30) 06/09/17 07:47 Anion Gap 17 mmol/L 06/09/17 07:47 BUN 36 mg/dL (7-17) H 06/09/17 07:47 Creatinine 1.7 mg/dL (0.7-1.2) H 06/09/17 07:47 Estimated GFR 29 ml/min 06/09/17 07:47 BUN/Creatinine Ratio 21.17 % 06/09/17 07:47 Glucose 118 mg/dL (65-100) H 06/09/17 07:47 POC Glucose 227 (70-105) H 06/06/17 16:36 Lactic Acid 0.90 mmol/L (0.7-2.0) 06/04/17 02:11 Calcium 10.3 mg/dL (8.4-10.2) H 06/09/17 07:47 Magnesium 2.00 mg/dL (1.7-2.3) 06/09/17 07:47 Total Bilirubin 0.40 mg/dL (0.1-1.2) 06/03/17 23:15 AST 14 units/L (5-40) 06/03/17 23:15 ALT 7 units/L (7-56) 06/03/17 23:15 Alkaline Phosphatase 95 units/L (35-129) 06/03/17 23:15 Troponin T < 0.010 ng/mL (0.00-0.029) 06/03/17 23:15 Total Protein 8.5 g/dL (6.3-8.2) H 06/03/17 23:15 Albumin 3.6 g/dL (3.9-5) L 06/03/17 23:15 Albumin/Globulin Ratio 0.7 % 06/03/17 23:15 Urine Color Yellow (Yellow) 06/04/17 00:11 Urine Turbidity Slightly-cloudy (Clear) 06/04/17 00:11 Urine pH 8.0 (5.0-7.0) H 06/04/17 00:11 Ur Specific [place] 1.013 (1.003-1.030) 06/04/17 00:11 Urine Protein 100 mg/dl mg/dL (Negative) 06/04/17 00:11 Urine Glucose (UA) Neg mg/dL (Negative) 06/04/17 00:11 Urine Ketones Neg mg/dL (Negative) 06/04/17 00:11 Urine Blood Neg (Negative) 06/04/17 00:11 Urine Nitrite Neg (Negative) 06/04/17 00:11 Urine Bilirubin Neg (Negative) 06/04/17 00:11 Urine Urobilinogen < 2.0 mg/dL (<2.0) 06/04/17 00:11 Ur Leukocyte Esterase Neg (Negative) 06/04/17 00:11 Urine WBC (Auto) 2.0 /HPF (0.0-6.0) 06/04/17 00:11 Urine RBC (Auto) 5.0 /HPF (0.0-6.0) 06/04/17 00:11 U Epithel Cells (Auto) 1.0 /HPF (0-13.0) 06/04/17 00:11 Urine Bacteria (Auto) 1+ /HPF (Negative) 06/04/17 00:11 Hyaline Casts 1 /LPF 06/04/17 00:11 Urine Mucus Few /HPF 06/04/17 00:11 Blood Type A POSITIVE 06/03/17 23:15 Antibody Screen TNR 06/03/17 23:15 KAYLA Antibody Screen Negative 06/03/17 23:15
--- NOTE | 2017-06-09 09:21 | Query- Renal Failure ---
Hung Vázquez___[place] Date:___06/09/2017 Cofounder/CDS:__Venus Phone#:____[phone] Exercise your independent professional judgment when responding to query. Questions asked do not imply a particular answer is desired or expected. We greatly appreciate your clarification on this issue. Clinical Documentation States: 82 year old female was admitted on 06/03/2017. The hospitalist progress note on 06/08/17 states " --Acute on chronic kidney disease stage III Stable, gentle hydration, avoid nephrotoxic medications, closely monitor renal function" Clinical Findings Show: Creatinine: 1.7 Please clarify if you mean: Acute Renal Failure with or due to: [ ] Tubular Necrosis [ ] Medullary Necrosis [x ] Vasomotor Nephropathy [ ] Shock Kidney [ ] Tubular Nephrosis [ ] Renal Tubular Stasis [ ] Cortical Necrosis [ ] Acute Renal Failure (unspecified) [ ] Lower Tubular Nephrosis [ ] Other: [ ] Not Applicable Present on Admission: [x ] Yes (Y) [ ] Clinically undeterminable (W) [ ] No (N) Please also document response in your Progress Notes and/or Discharge Summary and indicate if the condition was present on admission. MYAD
[2017-06-09] MEDS: NORVASC PO SCH (10:40)
[2017-06-09] MEDS: SINGULAIR PO SCH (10:40)
[2017-06-09] MEDS: FEOSOL PO SCH (10:40)
[2017-06-09] MEDS: LASIX PO SCH (10:41)
[2017-06-09] MEDS: VITAMIN C PO SCH (10:41)
[2017-06-09] MEDS: PROTONIX PO SCH (10:41)
[2017-06-09] MEDS: ATIVAN IV PRN (20:37)
[2017-06-09] MEDS: VALIUM PO SCH (22:08)
[2017-06-09] MEDS: ARICEPT PO SCH (22:08)
[2017-06-10] MEDS: ATIVAN IV PRN (02:03)
[2017-06-10] MEDS: DUONEB *Not for PRN Use IH SCH (07:19)
[2017-06-10] MEDS: APRESOLINE PO SCH (08:03)
--- NOTE | 2017-06-10 08:58 | Discharge Summary ---
Providers - Providers Date of Admission: 06/04/17 03:01 Date of discharge: 06/10/17 Attending physician: WILLIAM SINGH 06/05/17 08:30 Physical Therapy Evaluation and Treat [CONS] Routine Comment: Reason For Exam: debility Speech Therapy Evaluation and Treat [CONS] Routine Reason For Exam: AMS Primary care physician: JOIST SETTER Hospitalization Condition: Stable Disposition: DC/TX-06 HOME UNDER HOME [facility] Core Measure Documentation - Palliative Care Palliative Care/ Comfort Measures: Not Applicable - Core Measures Any of the following diagnoses?: none Exam - Constitutional Vitals: Temp Pulse Resp BP Pulse Ox 98.4 F 100 H 14 136/76 98 06/09/17 20:00 06/10/17 07:31 06/10/17 07:31 06/09/17 20:00 06/09/17 22:00 General appearance: Present: no acute distress, well-nourished - EENT Eyes: Present: PERRL, EOM intact - Neck Neck: Present: supple, normal ROM - Respiratory Respiratory effort: normal Respiratory: bilateral: diminished, negative: rales, rhonchi, wheezing - Cardiovascular Rhythm: regular Heart Sounds: Present: S1 & S2 - Extremities Extremities: no ischemia, pulses intact - Abdominal General gastrointestinal: Present: soft, non-tender, non-distended, normal bowel sounds - Integumentary Integumentary: Present: clear, warm - Musculoskeletal Musculoskeletal: generalized weakness - Psychiatric Psychiatric: appropriate mood/affect, other (minimally communicative) - Neurologic Neurologic: moves all extremities Plan Activity: advance as tolerated, fall precautions Diet: other (mechanical soft diet) Special Instructions: physical therapy Additional Instructions: If you have chest pain or shortness of breath ,contact MD or go to ER Follow up with: PRIMARY CARE,MD [Primary Care Provider] - 3-5 Days
[2017-06-10 09:14] VITALS: BP 135/70
[2017-06-10] MEDS: SINGULAIR PO SCH (09:22)
[2017-06-10] MEDS: LASIX PO SCH (09:23)
[2017-06-10] MEDS: VITAMIN C PO SCH (09:23)
[2017-06-10] MEDS: FEOSOL PO SCH (09:23)
[2017-06-10] MEDS: PROTONIX PO SCH (09:23)
[2017-06-10] MEDS: NORVASC PO SCH (09:25)
[2017-06-10] MEDS ORDERED: LEVAQUIN PO SCH (10:00)
== END 2017-06-10 11:03 | disposition hospice, inpatient (51) | DRG 177 ==
LOC: ED 22:12 → CC2 06-04 03:01
PROVIDERS: ADMIT Internal Medicine; ATTEND Internal Medicine
PROC: 4A033R1 Measurement of Arterial Saturation, Peripheral, Percutaneous Approach (ICD-10-PCS; principal; 2017-06-04)
DX: J15.1 Pneumonia due to Pseudomonas (principal); E43 Unspecified severe protein-calorie malnutrition; N17.0 Acute kidney failure with tubular necrosis; G92 Toxic encephalopathy; J44.0 Chronic obstructive pulmonary disease with (acute) lower respiratory infection; Z68.1 Body mass index [BMI] 19.9 or less, adult; I13.0 Hypertensive heart and chronic kidney disease with heart failure and stage 1 through stage 4 chronic kidney disease, or unspecified chronic kidney disease; J44.1 Chronic obstructive pulmonary disease with (acute) exacerbation; I50.9 Heart failure, unspecified; F03.90 Unspecified dementia, unspecified severity, without behavioral disturbance, psychotic disturbance, mood disturbance, and anxiety; N18.3 Chronic kidney disease, stage 3 (moderate); E11.22 Type 2 diabetes mellitus with diabetic chronic kidney disease; Z74.01 Bed confinement status; Z79.899 Other long term (current) drug therapy; Z82.49 Family history of ischemic heart disease and other diseases of the circulatory system; W06.XXXA Fall from bed, initial encounter; Y92.239 Unspecified place in hospital as the place of occurrence of the external cause; S00.11XA Contusion of right eyelid and periocular area, initial encounter
CPT/HCPCS: 36415; 36600; 70140; 70450; 71010; 80048; 80053; 81001; 82140; 82803; 82962; 83735; 84484; 85007; 85025; 85610; 85730; 86850; 86900; 86901; 87040; 87086; 93005; 93010; 94640; 94760; 96365; 96366; 96368; 96375; 99291; G8978-GP; G8979-GP; G8996-GN; G8997-GN; J0360; J1956; J2060; J2543; J3370; J7030

== ENCOUNTER 2017-09-19 20:36 | Inpatient (IN) | payer MEDICAID, MEDICARE ==
[2017-09-19] MEDS ORDERED: TYLENOL PR STA (20:59)
[2017-09-19] MEDS ORDERED: NACL 0.9% 500 ML 500 ML IV ONE (20:59)
--- NOTE | 2017-09-19 21:04 | Emergency Department Report ---
ED Altered Mental Status HPI - General Chief Complaint: Dyspnea/Respdistress Stated Complaint: UNRESPONSIVE Time Seen by Provider: 09/19/17 20:58 Source: EMS Mode of arrival: Stretcher Limitations: Language Barrier, Altered Mental Status - History of Present Illness MD Complaint: decreased responsiveness, other -: days(s) Severity: severe Consistency of Symptoms: getting worse - Related Data Home Medications Medication Instructions Recorded Confirmed Last Taken Ferrous Sulfate [Feosol] 325 mg PO QDAY 09/25/14 06/07/17 1 Day Ago HYDROcodone/ACETAMINOPHEN 1 tab PO Q12H PRN 09/25/14 06/07/17 10/30/16 [Hydrocodon-Acetaminophen 5-325] Levocetirizine Dihydrochloride 5 mg PO QHS 09/25/14 06/07/17 04/28/17 18:00 [Xyzal] Montelukast [Singulair] 10 mg PO QDAY 09/25/14 06/07/17 04/29/17 10:00 Diazepam 5 mg PO QHS 07/15/15 06/07/17 03/30/17 18:00 Ascorbic Acid [Vitamin C] 500 mg PO QDAY 08/04/15 06/07/17 Unknown Furosemide [Lasix TAB] 20 mg PO QDAY 08/04/15 06/07/17 Unknown Previous Rx's Medication Instructions Recorded Last Taken Type Donepezil [Aricept] 5 mg PO QHS #30 tablet 05/02/17 Unknown Rx Pantoprazole [Protonix INJ] 40 mg PO DIRECT #30 tab 05/02/17 Unknown Rx Tylenol /Codeine # 3 tab 30 mg PO BID #60 05/02/17 Unknown Rx Levofloxacin [Levaquin] 250 mg PO QDAY #5 tablet 06/10/17 Unknown Rx amLODIPine [Norvasc] 10 mg PO QDAY #30 tablet 06/10/17 Unknown Rx Allergies Allergy/AdvReac Type Severity Reaction Status Date / Time No Known Allergies Allergy Verified 09/19/17 20:44 ED Review of Systems ROS: Stated complaint: UNRESPONSIVE Other details as noted in HPI Comment: Unobtainable due to pts medical conditions ED Past Medical Hx - Past Medical History Previous Medical History?: Yes Hx Hypertension: Yes Hx Heart Attack/AMI: No Hx Congestive Heart Failure: Yes Hx Diabetes: No Hx Deep Vein Thrombosis: No Hx Pulmonary Embolism: No Hx Liver Disease: No Hx Renal Disease: Yes (CKD) Hx Sickle Cell Disease: No Hx Arthritis: No Hx Seizures: No Hx Kidney Stones: No Hx Asthma: No Hx COPD: Yes Hx Tuberculosis: No Hx Dementia: Yes Hx HIV: No - Surgical History Past Surgical History?: Yes Hx Coronary Stent: No Hx Open Heart Surgery: No Hx Pacemaker: No Hx Internal Defibrillator: No Hx Appendectomy: No Hx Breast Surgery: No Additional Surgical History: r hip replacement - Social History Smoking Status: Never Smoker - Medications Home Medications: Home Medications Medication Instructions Recorded Confirmed Last Taken Type Ferrous Sulfate [Feosol] 325 mg PO QDAY 09/25/14 06/07/17 1 Day Ago History HYDROcodone/ACETAMINOPHEN 1 tab PO Q12H PRN 09/25/14 06/07/17 10/30/16 History [Hydrocodon-Acetaminophen 5-325] Levocetirizine Dihydrochloride 5 mg PO QHS 09/25/14 06/07/17 04/28/17 18:00 History [Xyzal] Montelukast [Singulair] 10 mg PO QDAY 09/25/14 06/07/17 04/29/17 10:00 History Diazepam 5 mg PO QHS 07/15/15 06/07/17 03/30/17 18:00 History Ascorbic Acid [Vitamin C] 500 mg PO QDAY 08/04/15 06/07/17 Unknown History Furosemide [Lasix TAB] 20 mg PO QDAY 08/04/15 06/07/17 Unknown History Donepezil [Aricept] 5 mg PO QHS #30 tablet 05/02/17 06/07/17 Unknown Rx Pantoprazole [Protonix INJ] 40 mg PO DIRECT #30 tab 05/02/17 06/07/17 Unknown Rx Tylenol /Codeine # 3 tab 30 mg PO BID #60 05/02/17 06/07/17 Unknown Rx Levofloxacin [Levaquin] 250 mg PO QDAY #5 tablet 06/10/17 Unknown Rx amLODIPine [Norvasc] 10 mg PO QDAY #30 tablet 06/10/17 Unknown Rx ED Physical Exam - General Limitations: Language Barrier, Altered Mental Status General appearance: obtunded - Head Head exam: Present: atraumatic, normocephalic, normal inspection - Neurological Exam Neurological exam: Present: other - Skin Skin exam: Present: warm, dry - Other Other exam information: GENERAL: unresponsive pt intubated by ems.. ] HEENT: Normocephalic. Atraumatic. Extraocular motions are intact. Patient has moist mucous membranes. NECK: Supple. There is no adenopathy noted. CHEST/LUNGS: rhonhi becca. HEART/CARDIOVASCULAR: Regular. tachycardia. There is no gallop rub or murmur. ABDOMEN: Abdomen is soft, Patient has normal bowel sounds. There is no abdominal distention. SKIN: There is no rash. There is no edema. There is no diaphoresis. NEURO: Patient unresponsive MUSCULOSKELETAL: ED Course Vital Signs 09/19/17 09/19/17 09/19/17 20:00 20:47 22:00 Temperature 100 F H Pulse Rate 113 H 126 H Respiratory 44 H 18 Rate Blood Pressure 111/63 155/72 O2 Sat by Pulse 99 92 Oximetry 09/19/17 09/20/17 23:00 00:00 Temperature Pulse Rate 107 H Respiratory 18 Rate Blood Pressure 119/70 O2 Sat by Pulse 100 Oximetry - Intubation Time Out Performed: Yes Sedative: Versed Paralytic: Succinylcholine Laryngoscope: Armstrong Size: 4 Tube Secured Depth (cm): 23 Tube Secured Location: lips Tube Placement Confirmation: visualized tube passing t, equal breath sounds bilat, no breath sounds over epi, confirmation by capnometr Patient Tolerated Procedure: well Intubation Complications: none Additional Comments: During exam initial exam, patient noted to have epigastric sounds and vomitus in et tube and low sat. . Patient initially intubated by EMS, patient extubated and reintubated. After reintubation patient noted to bilateral breath sounds and no epigastric sounds heard.. NG placed. - Lab Data Result diagrams: 09/19/17 22:55 Lab Results 09/19/17 09/19/17 09/19/17 Range/Units 21:38 21:38 21:41 PT 14.3 (12.2-14.9) Sec. INR 1.06 (0.87-1.13) D-Dimer 617.22 H (0-234) ng/mlDDU POC ABG pH (7.35-7.45) POC ABG pCO2 (35-45) POC ABG pO2 (80-105) POC ABG HCO3 POC ABG Total CO2 POC ABG O2 Sat POC ABG Base Excess FiO2 % Sodium TNR Potassium TNR Chloride TNR Carbon Dioxide TNR Anion Gap TNR BUN TNR Creatinine TNR Estimated GFR TNR BUN/Creatinine Ratio TNR Glucose TNR Lactic Acid 8.10 H* (0.7-2.0) mmol/L Calcium TNR Total Bilirubin TNR AST TNR ALT TNR Alkaline Phosphatase TNR Total Protein TNR Albumin TNR Albumin/Globulin Ratio TNR Urine Color (Yellow) Urine Turbidity (Clear) Urine pH (5.0-7.0) Ur Specific [place] (1.003-1.030) Urine Protein (Negative) mg/dL Urine Glucose (UA) (Negative) mg/dL Urine Ketones (Negative) mg/dL Urine Blood (Negative) Urine Nitrite (Negative) Urine Bilirubin (Negative) Urine Urobilinogen (<2.0) mg/dL Ur Leukocyte Esterase (Negative) Urine WBC (Auto) (0.0-6.0) /HPF Urine RBC (Auto) (0.0-6.0) /HPF U Epithel Cells (Auto) (0-13.0) /HPF Urine Mucus /HPF 09/19/17 09/19/17 09/19/17 Range/Units 22:09 22:28 22:55 PT (12.2-14.9) Sec. INR (0.87-1.13) D-Dimer (0-234) ng/mlDDU POC ABG pH 7.288 L (7.35-7.45) POC ABG pCO2 32.0 L (35-45) POC ABG pO2 462 H (80-105) POC ABG HCO3 15.3 POC ABG Total CO2 16 POC ABG O2 Sat 100 POC ABG Base Excess -11 FiO2 100 % Sodium 149 H Potassium 6.7 H* Chloride 113.2 H Carbon Dioxide 10 L Anion Gap 33 BUN 77 H Creatinine 2.8 H Estimated GFR 16 BUN/Creatinine Ratio 28 Glucose 134 H Lactic Acid (0.7-2.0) mmol/L Calcium 10.0 Total Bilirubin AST ALT Alkaline Phosphatase Total Protein Albumin Albumin/Globulin Ratio Urine Color Straw (Yellow) Urine Turbidity Clear (Clear) Urine pH 6.0 (5.0-7.0) Ur Specific [place] 1.013 (1.003-1.030) Urine Protein 100 mg/dl (Negative) mg/dL Urine Glucose (UA) Neg (Negative) mg/dL Urine Ketones Neg (Negative) mg/dL Urine Blood Neg (Negative) Urine Nitrite Neg (Negative) Urine Bilirubin Neg (Negative) Urine Urobilinogen < 2.0 (<2.0) mg/dL Ur Leukocyte Esterase Neg (Negative) Urine WBC (Auto) 2.0 (0.0-6.0) /HPF Urine RBC (Auto) 1.0 (0.0-6.0) /HPF U Epithel Cells (Auto) < 1.0 (0-13.0) /HPF Urine Mucus Few /HPF - EKG Data -: EKG Interpreted by Me EKG shows normal: sinus rhythm Rate: tachycardia When compared to previous EKG there are: no significant change Interpretation: no acute changes, normal EKG, unchanged when compared t Critical Care Time: Yes (45 spent with patient separate from procedure time. ) Critical care attestation.: If time is entered above; I have spent that time in minutes in the direct care of this critically ill patient, excluding procedure time. Critical Care Time: 45 minutes spent with patient separate from procedure time. ED Disposition Clinical Impression: Hypoxia, Respiratory failure, Lactic acidosis, Altered mental status, Fever Disposition: [id number] OP ADMIT IP TO THIS HOSP Is pt being admited?: Yes Condition: Critical
--- NOTE | 2017-09-19 21:15 | Cat Scan Report ---
FINAL REPORT PROCEDURE: CT HEAD/BRAIN WO CON TECHNIQUE: Computerized tomography of the head was performed without contrast material. HISTORY: Altered mental status COMPARISON: No prior studies are available for comparison. FINDINGS: Brain: There is no evidence of intracranial hemorrhage. No parenchymal hemorrhage is seen. No mass lesions or mass effect is identified. No abnormal extra-axial fluid collections or masses are seen. Nonspecific mineralization of the basal ganglia are visualized bilaterally. There is some decreased density seen in the periventricular white matter without mass effect. This is fairly symmetric and does not exhibit any mass effect consistent with gliosis probably on the basis of microvascular disease or white matter changes of aging. Ventricles: The ventricles, sulcal pattern and fissures are prominent consistent with atrophy. Bones: No evidence of acute fracture. Paranasal sinuses: Visualized portions appear clear. Mastoid air cells: clear NG tube is partially visualized. IMPRESSION: There is evidence of moderate atrophy and mild gliosis. No acute intracranial abnormalities are seen. If symptoms persist or worsen consider follow-up CT scan or MRI for further evaluation. NG tube in place as described.
--- NOTE | 2017-09-19 21:53 | XRay Report ---
FINAL REPORT EXAM: XR CHEST 1V AP HISTORY: possible Sepsis, ET placement COMPARISON: None available. FINDINGS: Frontal view(s) of the chest obtained. Heart normal in size. ETT is present. Distal tip approximately 9 millimeter from the rocio. This is slightly low lying but satisfactory position. NG tube is present. Distal tip not visualized but extends at least to the proximal to mid stomach. Tiny calcified granuloma right lung apex. Minimal blunting the right costophrenic angle which may reflect trace effusion versus pleural thickening. No dense consolidation or effusion. No large focal lucency to suggest pneumothorax chronic deformity of the right humeral head neck. IMPRESSION: ET tube slightly low lying but satisfactory position. NG tube in satisfactory position. Minimal blunting the right costophrenic angle concerning for trace effusion versus pleural thickening. No large consolidation or effusion otherwise.
[2017-09-19] MEDS ORDERED: NACL 0.9% 500 ML IV SCH (22:00)
[2017-09-19 22:19] LABS: ISTAT Base Excess -11; ISTAT HCO3 15.3; ISTAT PH 7.288 (7.35-7.45); ISTAT PO2 462 (80-105); ISTAT SO2 100; ISTAT TCO2 16
[2017-09-19 22:20] LABS: INR 1.06 (0.87-1.13)
[2017-09-19] MEDS ORDERED: ROCEPHIN/NS 1 GM/50 ML 1 GM/50 ML BAG IV ONE (22:36)
[2017-09-19] MEDS ORDERED: XYLOCAINE 1% MPF 5 mL INFILTRATI ONE (22:40)
[2017-09-19] MEDS ORDERED: ROCEPHIN IV ONE (22:40)
[2017-09-19 22:42] LABS: Anion Gap TNR mmol/L; Carbon Dioxide TNR mmol/L (22-30); Chloride TNR mmol/L (98-107); Potassium TNR mmol/L (3.6-5.0); Sodium TNR mmol/L (137-145)
[2017-09-19 22:43] LABS: BUN/Creatinine Ratio TNR; Blood Urea Nitrogen TNR mg/dL (7-17); Glucose TNR mg/dL (65-100)
[2017-09-19 22:44] LABS: Alanine Aminotransferase TNR units/L (7-56); Albumin TNR g/dL (3.9-5); Bilirubin,Total TNR mg/dL (0.1-1.2); Calcium TNR mg/dL (8.4-10.2); Total Protein TNR g/dL (6.3-8.2)
[2017-09-19 22:45] LABS: Albumin/Globulin Ratio TNR %; Alkaline Phosphatase TNR units/L (35-129)
[2017-09-19] MEDS ORDERED: DIPRIVAN 10 MG/ML 1,000 MG/100 ML BOTTLE IV SCH (23:00)
[2017-09-19 23:01] LABS: Bilirubin,Urine NEG (Negative); Blood,Urine NEG (Negative); Ketones,Urine NEG (Negative); Leukocyte Esterase,Urine NEG (Negative); Mucus,Urine FEW /HPF; Nitrite,Urine NEG (Negative); Urobilinogen,Urine < 2.0 mg/dL (<2.0)
[2017-09-19 23:30] LABS: Chloride 113.2 mmol/L (98-107)
[2017-09-19 23:35] LABS: Potassium 6.7 mmol/L (3.6-5.0)
--- NOTE | 2017-09-19 23:40 | History and Physical Report ---
History of Present Illness Date of examination: 09/19/17 Chief complaint: Unresponsive History of present illness: 82-year-old woman with a history of hypertension, COPD, chronic kidney disease, dementia was just discharged from the hospital returned with complaints of cough productive of yellow phlegm, lethargy, patient has been sleeping all day. Patient was discharged from the hospital 2 days ago . History is per the spouse at bedside, review of systems unobtainable Past History Past Medical History: COPD, heart failure, hypertension, renal failure, other ( dementia) Social history: full code (A.) Medications and Allergies Allergies Allergy/AdvReac Type Severity Reaction Status Date / Time No Known Allergies Allergy Verified 09/19/17 20:44 Home Medications Medication Instructions Recorded Confirmed Last Taken Type Ferrous Sulfate [Feosol] 325 mg PO QDAY 09/25/14 06/07/17 1 Day Ago History HYDROcodone/ACETAMINOPHEN 1 tab PO Q12H PRN 09/25/14 06/07/17 10/30/16 History [Hydrocodon-Acetaminophen 5-325] Levocetirizine Dihydrochloride 5 mg PO QHS 09/25/14 06/07/17 04/28/17 18:00 History [Xyzal] Montelukast [Singulair] 10 mg PO QDAY 09/25/14 06/07/17 04/29/17 10:00 History Diazepam 5 mg PO QHS 07/15/15 06/07/17 03/30/17 18:00 History Ascorbic Acid [Vitamin C] 500 mg PO QDAY 08/04/15 06/07/17 Unknown History Furosemide [Lasix TAB] 20 mg PO QDAY 08/04/15 06/07/17 Unknown History Donepezil [Aricept] 5 mg PO QHS #30 tablet 05/02/17 06/07/17 Unknown Rx Pantoprazole [Protonix INJ] 40 mg PO DIRECT #30 tab 05/02/17 06/07/17 Unknown Rx Tylenol /Codeine # 3 tab 30 mg PO BID #60 05/02/17 06/07/17 Unknown Rx Levofloxacin [Levaquin] 250 mg PO QDAY #5 tablet 06/10/17 Unknown Rx amLODIPine [Norvasc] 10 mg PO QDAY #30 tablet 06/10/17 Unknown Rx Active Meds: Active Medications Propofol (Diprivan 10 Mg/Ml) 1,000 mg in 100 mls @ 1.497 mls/hr IV TITR ISSAC; 5 MCG/KG/MIN PRN Reason: Protocol Sodium Chloride (Nacl 0.9% 500 Ml) 1 ml IV DIRECT ISSAC Exam - Physical Exam Narrative exam: GENERAL: unresponsive pt intubated by ems. HEENT: Normocephalic. Atraumatic. Extraocular motions are intact. Patient has moist mucous membranes. NECK: Supple. There is no adenopathy noted. CHEST/LUNGS: rhonhi becca. HEART/CARDIOVASCULAR: Regular. tachycardia. There is no gallop rub or murmur. ABDOMEN: Abdomen is soft, Patient has normal bowel sounds. There is no abdominal distention. SKIN: There is no rash. There is no edema. There is no diaphoresis. NEURO: Patient unresponsive, intubated and sedated MUSCULOSKELETAL: No obvious deformity noted Psychiatric could not be assessed Vascular system no lymphadenopathy distal pulses 2+ bilaterally - Constitutional Vitals: Temp Pulse Resp BP Pulse Ox 100 F H 126 H 18 155/72 92 09/19/17 20:47 09/19/17 20:47 09/19/17 22:00 09/19/17 20:47 09/19/17 20:47 Results - Labs CBC & Chem 7: 09/20/17 00:30 09/20/17 00:30 Labs: Laboratory Last Values PT 14.3 Sec. (12.2-14.9) 09/19/17 21:41 INR 1.06 (0.87-1.13) 09/19/17 21:41 D-Dimer 617.22 ng/mlDDU (0-234) H 09/19/17 21:41 POC ABG pH 7.288 (7.35-7.45) L 09/19/17 22:09 POC ABG pCO2 32.0 (35-45) L 09/19/17 22:09 POC ABG pO2 462 (80-105) H 09/19/17 22:09 POC ABG HCO3 15.3 09/19/17 22:09 POC ABG Total CO2 16 09/19/17 22:09 POC ABG O2 Sat 100 09/19/17 22:09 POC ABG Base Excess -11 09/19/17 22:09 FiO2 100 % 09/19/17 22:09 Sodium 149 mmol/L (137-145) H 09/19/17 22:55 Potassium 6.7 mmol/L (3.6-5.0) H* 09/19/17 22:55 Chloride 113.2 mmol/L (98-107) H 09/19/17 22:55 Carbon Dioxide 10 mmol/L (22-30) L 09/19/17 22:55 Anion Gap 33 mmol/L 09/19/17 22:55 BUN 77 mg/dL (7-17) H 09/19/17 22:55 Creatinine 2.8 mg/dL (0.7-1.2) H 09/19/17 22:55 Estimated GFR 16 ml/min 09/19/17 22:55 BUN/Creatinine Ratio 28 % 09/19/17 22:55 Glucose 134 mg/dL (65-100) H 09/19/17 22:55 Lactic Acid 8.10 mmol/L (0.7-2.0) H* 09/19/17 21:38 Calcium 10.0 mg/dL (8.4-10.2) 09/19/17 22:55 Total Bilirubin TNR 09/19/17 21:38 AST TNR 09/19/17 21:38 ALT TNR 09/19/17 21:38 Alkaline Phosphatase TNR 09/19/17 21:38 Total Protein TNR 09/19/17 21:38 Albumin TNR 09/19/17 21:38 Albumin/Globulin Ratio TNR 09/19/17 21:38 Urine Color Straw (Yellow) 09/19/17 22:28 Urine Turbidity Clear (Clear) 09/19/17 22:28 Urine pH 6.0 (5.0-7.0) 09/19/17 22:28 Ur Specific [place] 1.013 (1.003-1.030) 09/19/17 22:28 Urine Protein 100 mg/dl mg/dL (Negative) 09/19/17 22:28 Urine Glucose (UA) Neg mg/dL (Negative) 09/19/17 22:28 Urine Ketones Neg mg/dL (Negative) 09/19/17 22:28 Urine Blood Neg (Negative) 09/19/17 22:28 Urine Nitrite Neg (Negative) 09/19/17 22:28 Urine Bilirubin Neg (Negative) 09/19/17 22:28 Urine Urobilinogen < 2.0 mg/dL (<2.0) 09/19/17 22:28 Ur Leukocyte Esterase Neg (Negative) 09/19/17 22:28 Urine WBC (Auto) 2.0 /HPF (0.0-6.0) 09/19/17 22:28 Urine RBC (Auto) 1.0 /HPF (0.0-6.0) 09/19/17 22:28 U Epithel Cells (Auto) < 1.0 /HPF (0-13.0) 09/19/17 22:28 Urine Mucus Few /HPF 09/19/17 22:28 - Imaging and Cardiology Imaging and Cardiology: EKG normal sinus rhythm with sinus tachycardia otherwise normal ischemia or other arrhythmia noted Chest x-ray no acute process CT head no acute intracranial process Assessment and Plan Assessment and plan: Assessment and plan - * Acute hypoxemic Respiratory failure, * Sepsis * Likely aspiration pneumonia versus pneumonitis * Lactic acidosis with acidemia - likely secondary to severe sepsis * Altered mental status - unresponsiveness * Fever with leukocytosis * Severe anemia * Hyperkalemia * Acute on chronic renal failure Plan - Patient will be admitted to ICU She is currently intubated. On maximal ventilatory settings Consult pulmonary critical care Source of sepsis currently unknown likely aspiration pneumonia patient has been pancultured. Follow-up all results meanwhile start the patient empirically on vancomycin and Zosyn to cover all possible sources. Patient has been aggressively treated for her hyperkalemia. The calcium gluconate insulin D50 D and bicarbonate in the ED Kayexalate has been ordered. We will monitor potassium levels closely. We will give aggressive IV fluid rehydration monitor renal function closely and avoid all nephrotoxins monitor CBC electrolytes replace electrolytes when necessary as per protocol DVT prophylaxis with heparin GI prophylaxis with Protonix monitor and follow the patient closely There is a huge language bad year at as per the report the patient is a 40 cord status was addressed by EMS as well as ED but the wishes the patient to be full code. Advance Directives: No VTE prophylaxis?: Chemical, Mechanical Plan of care discussed with patient/family: Yes
[2017-09-19] MEDS ORDERED: MILK OF MAGNESIA PO PRN (23:41)
[2017-09-19] MEDS ORDERED: SIMPLE SYRUP FEEDTUBE PRN ×2 (23:41)
[2017-09-19] MEDS ORDERED: DULCOLAX PR PRN (23:41)
[2017-09-19] MEDS ORDERED: SODIUM BICARBONATE FEEDTUBE PRN (23:41)
[2017-09-19] MEDS ORDERED: ALUM-MAG HYDROX-SIMETH 200-200-20MG/5ML PO PRN (23:41)
[2017-09-19] MEDS ORDERED: D50W (25GM) Vial IV PRN (23:41)
[2017-09-19] MEDS ORDERED: PANCREAZE DR 10,500 UNIT FEEDTUBE PRN (23:41)
[2017-09-19] MEDS ORDERED: MORPHINE IV PRN (23:41)
[2017-09-19] MEDS ORDERED: VANCOMYCIN PHARMACY TO DOSE IV SCH (23:45)
[2017-09-19] MEDS ORDERED: D5NS 1,000 ML IV SCH (23:45)
[2017-09-19] MEDS ORDERED: KIONEX PO ONE (23:45)
[2017-09-19] MEDS ORDERED: D50W (25GM) Vial IV ONE (23:45)
[2017-09-19] MEDS ORDERED: CALCIUM CHLORIDE IV ONE (23:47)
[2017-09-20 00:32] LABS: ISTAT Base Excess -14; ISTAT HCO3 13.5; ISTAT PCO2 32.9 (35-45); ISTAT PH 7.222 (7.35-7.45); ISTAT PO2 186 (80-105); ISTAT SO2 99; ISTAT TCO2 15
[2017-09-20 01:00] LABS: White Blood Count 19.9 K/mm3 (4.5-11.0)
[2017-09-20 01:01] LABS: Hematocrit 19.9 % (30.3-42.9); Hemoglobin 5.9 gm/dl (10.1-14.3)
[2017-09-20 01:02] LABS: Mean Corpuscular HGB Conc 30 % (30-34); Mean Corpuscular Hemoglobin 26 pg (28-32); Mean Corpuscular Volume 87 fl (79-97); Mean Platelet Volume 9.2 fl (6-12); Platelet Count 235 K/mm3 (140-440); Red Cell Distribution Width 16.4 % (13.2-15.2)
[2017-09-20] MEDS ORDERED: NACL 0.9% 500 ML 500 ML IV ONE ×3 (01:10→04:25)
[2017-09-20 01:11] LABS: Albumin 2.9 g/dL (3.9-5); Albumin/Globulin Ratio 0.9 %; Bilirubin,Total 0.2 mg/dL (0.1-1.2); Calcium 11.4 mg/dL (8.4-10.2); Chloride 109.1 mmol/L (98-107)
[2017-09-20] MEDS ORDERED: SODIUM BICARBONATE IV ONE ×4 (01:23→06:42)
[2017-09-20] MEDS ORDERED: VANCOMYCIN/NS 1 GM/250 ML 1 GM/250 ML BAG IV ONE (02:00)
[2017-09-20] MEDS ORDERED: SODIUM BICARBONATE 50 MEQ in NACL 0.9% 1000 ML 1,000 ML IV SCH (02:00)
[2017-09-20 03:54] LABS: Basophils % (Manual) 0 % (0.0-1.8); Blastocytes % (Manual) 0 %; Eosinophils % (Manual) 0 % (0.0-4.3)
[2017-09-20 03:55] LABS: Anisocytosis 1+; Diff Status Complete; Elliptocytes Few; Hypochromasia 1+; Platelet Estimate Consistent w Auto; Polychromasia Few
[2017-09-20] MEDS ORDERED: NACL 0.9% 1000 ML 1,000 ML ONE (04:11)
[2017-09-20] MEDS: ZOSYN/NS 2.25 GM/50ML 2.25 GM/50 ML BAG IV SCH ×3 (06:18→21:21)
[2017-09-20 06:32] LABS: ISTAT Base Excess -16; ISTAT HCO3 11.7; ISTAT PCO2 27.8 (35-45); ISTAT PH 7.231 (7.35-7.45); ISTAT PO2 134 (80-105); ISTAT SO2 99; ISTAT TCO2 13
[2017-09-20] MEDS: DUONEB *Not for PRN Use IH SCH ×4 (07:35→19:36)
--- NOTE | 2017-09-20 09:56 | XRay Report ---
AP CHEST: HISTORY: Followup respiratory failure Lines and support devices remain in good position. Trace right pleural effusion is evident on today's exam. The lungs are hyperinflated but clear. Heart size remains normal. IMPRESSION: Trace right pleural effusion. Hyperinflated lungs.
[2017-09-20] MEDS ORDERED: SODIUM BICARBONATE FEEDTUBE PRN (11:08)
[2017-09-20] MEDS ORDERED: SIMPLE SYRUP FEEDTUBE PRN ×2 (11:08)
[2017-09-20] MEDS ORDERED: PANCREAZE DR 10,500 UNIT FEEDTUBE PRN (11:08)
--- NOTE | 2017-09-20 11:44 | Progress Note ---
Assessment and Plan Assessment and plan: Acute hypoxemic respiratory failure. Continue mechanical ventilation. Pulmonary consultation pending. Sepsis. Etiology likely secondary to aspiration pneumonia. Continue IV antibiotics and follow-up. Blood cultures and lactic acid levels. Aspiration pneumonia/pneumonitis. Continue IV antibiotics and follow-up 0. Chest x-ray. Toxic metabolic encephalopathy. Continue to treat underlying causes. Severe anemia. Etiology is unknown. Check Hemoccult stool. Check iron, ferritin, TIBC, LVH, reticulocyte count and B12/folate. Hematology consultation. Transfuse for hemoglobin less than 7.0. Hyperkalemia. Patient was treated in the emergency room. Follow-up BMP and treat accordingly. Acute on chronic kidney failure. Patient appeared to have baseline creatinine of 1.3~1.7 in May of this year. Etiology likely secondary to sepsis/ATN. Check bilateral renal ultrasound, rule out obstructive nephropathy. Nephrology consultation. Acute COPD exacerbation. Start IV steroids and continue breathing treatment/ bronchodilators. The high probability of a clinically significant, sudden or life threatening deterioration of the [respiratory] system(s) required my full and direct attention, intervention and personal management. The aggregate critical care time was [31] minutes. This time is in addition to time spent performing reported procedures but includes the following: [x] Data Review and interpretation [x] Patient assessment and monitoring of vital signs [x] Documentation [x] Medication orders and management History Interval history: No new issues overnight. Patient remains orally intubated and sedated. Hospitalist Physical - Constitutional Vitals: Temp Pulse Resp BP Pulse Ox 99.2 F 118 H 16 117/71 97 09/20/17 10:44 09/20/17 10:30 09/20/17 10:30 09/20/17 10:30 09/20/17 10:15 General appearance: Present: no acute distress, well-nourished, other (orally intubated) - EENT Eyes: Present: PERRL, EOM intact ENT: hearing intact, clear oral mucosa, dentition normal - Neck Neck: Present: supple, normal ROM - Respiratory Respiratory effort: normal Respiratory: bilateral: diminished, rhonchi - Cardiovascular Rhythm: regular Heart Sounds: Present: S1 & S2. Absent: gallop, rub - Extremities Extremities: no ischemia, No edema, Full ROM - Abdominal General gastrointestinal: soft, non-tender, non-distended, normal bowel sounds - Integumentary Integumentary: Present: clear, warm, dry - Neurologic Neurologic: CNII-XII intact, moves all extremities Results - Labs CBC & Chem 7: 09/20/17 00:30 09/20/17 00:30 Labs: Laboratory Last Values WBC 19.9 K/mm3 (4.5-11.0) H 09/20/17 00:30 RBC 2.30 M/mm3 (3.65-5.03) L 09/20/17 00:30 Hgb 5.9 gm/dl (10.1-14.3) L* 09/20/17 00:30 Hct 19.9 % (30.3-42.9) L* 09/20/17 00:30 MCV 87 fl (79-97) 09/20/17 00:30 MCH 26 pg (28-32) L 09/20/17 00:30 MCHC 30 % (30-34) 09/20/17 00:30 RDW 16.4 % (13.2-15.2) H 09/20/17 00:30 Plt Count 235 K/mm3 (140-440) 09/20/17 00:30 Add Manual Diff Complete 09/20/17 00:30 Total Counted 100 09/20/17 00:30 Seg Neuts % (Manual) 84.0 % (40.0-70.0) H 09/20/17 00:30 Band Neutrophils % 10.0 % 09/20/17 00:30 Lymphocytes % (Manual) 3.0 % (13.4-35.0) L 09/20/17 00:30 Reactive Lymphs % (Man) 0 % 09/20/17 00:30 Monocytes % (Manual) 3.0 % (0.0-7.3) 09/20/17 00:30 Eosinophils % (Manual) 0 % (0.0-4.3) 09/20/17 00:30 Basophils % (Manual) 0 % (0.0-1.8) 09/20/17 00:30 Metamyelocytes % 0 % 09/20/17 00:30 Myelocytes % 0 % 09/20/17 00:30 Promyelocytes % 0 % 09/20/17 00:30 Blast Cells % 0 % 09/20/17 00:30 Nucleated RBC % Not Reportable 10/22/17 00:30 Seg Neutrophils # Man 16.7 K/mm3 (1.8-7.7) H 09/20/17 00:30 Band Neutrophils # 2.0 K/mm3 09/20/17 00:30 Lymphocytes # (Manual) 0.6 K/mm3 (1.2-5.4) L 10 00:30 Abs React Lymphs (Man) 0.0 K/mm3 09/20/17 00:30 Monocytes # (Manual) 0.6 K/mm3 (0.0-0.8) 09/20/17 00:30 Eosinophils # (Manual) 0.0 K/mm3 (0.0-0.4) 09/20/17 00:30 Basophils # (Manual) 0.0 K/mm3 (0.0-0.1) 09/20/17 00:30 Metamyelocytes # 0.0 K/mm3 09/20/17 00:30 Myelocytes # 0.0 K/mm3 09/20/17 00:30 Promyelocytes # 0.0 K/mm3 09/20/17 00:30 Blast Cells # 0.0 K/mm3 09/20/17 00:30 WBC Morphology Not Reportable 09/20/17 00:30 Hypersegmented Neuts Not Reportable 09/20/17 00:30 Hyposegmented Neuts Not Reportable 09/20/17 00:30 Hypogranular Neuts Not Reportable 09/20/17 00:30 Smudge Cells Not Reportable 09/20/17 00:30 Toxic Granulation Not Reportable 09/20/17 00:30 Toxic Vacuolation Not Reportable 09/20/17 00:30 Dohle Bodies Not Reportable 09/20/17 00:30 Pelger-Huet Anomaly Not Reportable 09/20/17 00:30 Ruddy Rods Not Reportable 09/20/17 00:30 Platelet Estimate Consistent w auto 09/20/17 00:30 Clumped Platelets Not Reportable 09/20/17 00:30 Plt Clumps, EDTA Not Reportable 09/20/17 00:30 Large Platelets Not Reportable 09/20/17 00:30 Giant Platelets Not Reportable 09/20/17 00:30 Platelet Satelliting Not Reportable 09/20/17 00:30 Plt Morphology Comment Not Reportable 09/20/17 00:30 RBC Morphology Not Reportable 09/20/17 00:30 Dimorphic RBCs Not Reportable 09/20/17 00:30 Polychromasia Few 09/20/17 00:30 Hypochromasia 1+ 09/20/17 00:30 Poikilocytosis Not Reportable 09/20/17 00:30 Anisocytosis 1+ 09/20/17 00:30 Microcytosis Not Reportable 09/20/17 00:30 Macrocytosis Not Reportable 09/20/17 00:30 Spherocytes Not Reportable 09/20/17 00:30 Pappenheimer Bodies Not Reportable 09/20/17 00:30 Sickle Cells Not Reportable 09/20/17 00:30 Target Cells Not Reportable 09/20/17 00:30 Tear Drop Cells Not Reportable 09/20/17 00:30 Ovalocytes Not Reportable 09/20/17 00:30 Helmet Cells Not Reportable 09/20/17 00:30 [place] Bodies Not Reportable 09/20/17 00:30 [place] Rings Not Reportable 09/20/17 00:30 Krystin Cells Not Reportable 09/20/17 00:30 Bite Cells Not Reportable 09/20/17 00:30 Crenated Cell Not Reportable 09/20/17 00:30 Elliptocytes Few 09/20/17 00:30 Acanthocytes (Spur) Not Reportable 09/20/17 00:30 Rouleaux Not Reportable 09/20/17 00:30 Hemoglobin C Crystals Not Reportable 09/20/17 00:30 Schistocytes Not Reportable 09/20/17 00:30 Malaria parasites Not Reportable 09/20/17 00:30 Maciej Bodies Not Reportable 09/20/17 00:30 Hem Pathologist Commnt No 09/20/17 00:30 PT 14.3 Sec. (12.2-14.9) 09/19/17 21:41 INR 1.06 (0.87-1.13) 09/19/17 21:41 D-Dimer 617.22 ng/mlDDU (0-234) H 09/19/17 21:41 POC ABG pH 7.231 (7.35-7.45) L 09/20/17 06:28 POC ABG pCO2 27.8 (35-45) L 09/20/17 06:28 POC ABG pO2 134 (80-105) H 09/20/17 06:28 POC ABG HCO3 11.7 09/20/17 06:28 POC ABG Total CO2 13 09/20/17 06:28 POC ABG O2 Sat 99 09/20/17 06:28 POC ABG Base Excess -16 09/20/17 06:28 VBG pH 7.158 (7.320-7.420) L* 09/20/17 00:30 FiO2 28 % 09/20/17 06:28 Sodium 145 mmol/L (137-145) 09/20/17 00:30 Potassium 6.0 mmol/L (3.6-5.0) H 09/20/17 00:30 Chloride 109.1 mmol/L (98-107) H 09/20/17 00:30 Carbon Dioxide 12 mmol/L (22-30) L 09/20/17 00:30 Anion Gap 30 mmol/L 09/20/17 00:30 BUN 81 mg/dL (7-17) H 09/20/17 00:30 Creatinine 3.2 mg/dL (0.7-1.2) H 09/20/17 00:30 Estimated GFR 14 ml/min 09/20/17 00:30 BUN/Creatinine Ratio 25 % 09/20/17 00:30 Glucose 535 mg/dL (65-100) H* 09/20/17 00:30 POC Glucose 302 (70-105) H 09/20/17 03:20 Lactic Acid 6.10 mmol/L (0.7-2.0) H* 09/20/17 05:20 Calcium 11.4 mg/dL (8.4-10.2) H 09/20/17 00:30 Total Bilirubin 0.20 mg/dL (0.1-1.2) 09/20/17 00:30 AST 24 units/L (5-40) 09/20/17 00:30 ALT 10 units/L (7-56) 09/20/17 00:30 Alkaline Phosphatase 152 units/L (35-129) H 09/20/17 00:30 Total Protein 6.0 g/dL (6.3-8.2) L 09/20/17 00:30 Albumin 2.9 g/dL (3.9-5) L 09/20/17 00:30 Albumin/Globulin Ratio 0.9 % 09/20/17 00:30 Urine Color Straw (Yellow) 09/19/17 22:28 Urine Turbidity Clear (Clear) 09/19/17 22:28 Urine pH 6.0 (5.0-7.0) 09/19/17 22:28 Ur Specific [place] 1.013 (1.003-1.030) 09/19/17 22:28 Urine Protein 100 mg/dl mg/dL (Negative) 09/19/17 22:28 Urine Glucose (UA) Neg mg/dL (Negative) 09/19/17 22:28 Urine Ketones Neg mg/dL (Negative) 09/19/17 22:28 Urine Blood Neg (Negative) 09/19/17 22:28 Urine Nitrite Neg (Negative) 09/19/17 22:28 Urine Bilirubin Neg (Negative) 09/19/17 22:28 Urine Urobilinogen < 2.0 mg/dL (<2.0) 09/19/17 22:28 Ur Leukocyte Esterase Neg (Negative) 09/19/17 22:28 Urine WBC (Auto) 2.0 /HPF (0.0-6.0) 09/19/17 22:28 Urine RBC (Auto) 1.0 /HPF (0.0-6.0) 09/19/17 22:28 U Epithel Cells (Auto) < 1.0 /HPF (0-13.0) 09/19/17 22:28 Urine Mucus Few /HPF 09/19/17 22:28 Blood Type A POSITIVE 09/20/17 03:00 Antibody Screen Negative 09/20/17 03:00 Crossmatch See Detail 09/20/17 03:00
[2017-09-20] MEDS: HEPARIN SUB-Q SCH ×2 (13:59→21:21)
[2017-09-20] MEDS: PROTONIX IV SCH (14:14)
[2017-09-20] MEDS ORDERED: TYLENOL PR PRN (15:36)
[2017-09-20] MEDS ORDERED: VERSED IV ONE (16:27)
[2017-09-20] MEDS ORDERED: QUELICIN ONE (16:27)
[2017-09-20 16:29] LABS: Iron 14 ug/dL (37-170); Lactate Dehydrogenase 274 units/L (91-180); Total Iron Binding Capacity 179 mcg/dL (250-450)
[2017-09-20 16:30] LABS: Reticulocyte % 1.78 % (0.78-2.58)
--- NOTE | 2017-09-20 17:37 | Consultation ---
History of Present Illness Consult date: 09/20/17 Requesting physician: SAMM CASTILLO Reason for consult: other (Acute Hypoxemic Respiratory Failure; Acute Encephalopathy) History of present illness: PULMONARY/CCM CONSULT NOTE (Full dictation # [id number]) Please see dictated notes for full details Past History Past Medical History: COPD, heart failure, hypertension, renal failure, other ( dementia) Social history: full code (A.) Medications and Allergies Allergies Allergy/AdvReac Type Severity Reaction Status Date / Time No Known Allergies Allergy Verified 09/19/17 20:44 Home Medications Medication Instructions Recorded Confirmed Last Taken Type Ferrous Sulfate [Feosol] 325 mg PO QDAY 09/25/14 06/07/17 1 Day Ago History HYDROcodone/ACETAMINOPHEN 1 tab PO Q12H PRN 09/25/14 06/07/17 10/30/16 History [Hydrocodon-Acetaminophen 5-325] Levocetirizine Dihydrochloride 5 mg PO QHS 09/25/14 06/07/17 04/28/17 18:00 History [Xyzal] Montelukast [Singulair] 10 mg PO QDAY 09/25/14 06/07/17 04/29/17 10:00 History Diazepam 5 mg PO QHS 07/15/15 06/07/17 03/30/17 18:00 History Ascorbic Acid [Vitamin C] 500 mg PO QDAY 08/04/15 06/07/17 Unknown History Furosemide [Lasix TAB] 20 mg PO QDAY 08/04/15 06/07/17 Unknown History Donepezil [Aricept] 5 mg PO QHS #30 tablet 05/02/17 06/07/17 Unknown Rx Pantoprazole [Protonix INJ] 40 mg PO DIRECT #30 tab 05/02/17 06/07/17 Unknown Rx Tylenol /Codeine # 3 tab 30 mg PO BID #60 05/02/17 06/07/17 Unknown Rx Levofloxacin [Levaquin] 250 mg PO QDAY #5 tablet 06/10/17 Unknown Rx amLODIPine [Norvasc] 10 mg PO QDAY #30 tablet 06/10/17 Unknown Rx Active Meds: Active Medications Acetaminophen (Tylenol) 650 mg [place] Q6H PRN PRN Reason: Pain, Mild (1-3) Last Admin: 09/20/17 15:45 Dose: 650 mg Al Hydrox/Mg Hydrox/Simethicone (Alum-Mag Hydrox-Simeth [id number]/5ml) 30 ml PO Q4H PRN PRN Reason: Indigestion Albuterol/Ipratropium (Duoneb *Not For Prn Use*) 1 ampul IH Q6HRT [facility] Last Admin: 09/20/17 14:21 Dose: Not Given Lipase/Protease/Amylase (Pancrepatti [place] 10,500 Unit) 1 each FEEDTUBE PRN PRN PRN Reason: For Clogged Feeding Tube Lipase/Protease/Amylase (Pancreaze 10,500 Unit) 1 each FEEDTUBE PRN PRN PRN Reason: For Clogged Feeding Tube Bisacodyl (Dulcolax) 10 mg [place] QDAY PRN PRN Reason: constipation unrelieved by MOM Dextrose (D50w (25gm) Vial) 50 gm IV PRN PRN PRN Reason: Hypoglycemia Heparin Sodium (Porcine) (Heparin) 5,000 unit SUB-Q Q12HR [facility] Last Admin: 09/20/17 13:59 Dose: Not Given Propofol (Diprivan 10 Mg/Ml) 1,000 mg in 100 mls @ 1.497 mls/hr IV TITR ISSAC; 5 MCG/KG/MIN PRN Reason: Protocol Dextrose/Sodium Chloride (D5ns) 1,000 mls @ 125 mls/hr IV DIRECT ISSAC Piperacillin Sod/Tazobactam Sod (Zosyn/Ns 2.25 Gm/50ml) 2.25 gm in 50 mls @ 100 mls/hr IV Q8HR ISSAC PRN Reason: Protocol Last Admin: 09/20/17 13:59 Dose: 100 mls/hr Sodium Chloride (Nacl 0.9% 1000 Ml) 1,000 mls @ 150 mls/hr IV DIRECT ISSAC Magnesium Hydroxide (Milk Of Magnesia) 30 ml PO Q4H PRN PRN Reason: Constipation Methylprednisolone Sodium Succinate (Solu-Medrol) 40 mg IV Q12HR ISSAC Morphine Sulfate (Morphine) 2 mg IV Q4H PRN PRN Reason: Pain, Moderate (4-6) Pantoprazole Sodium (Protonix) 40 mg IV QDAY [facility] Last Admin: 09/20/17 14:14 Dose: Not Given Simple Syrup (Simple Syrup) 15 ml FEEDTUBE PRN PRN PRN Reason: Hypoglycemia Simple Syrup (Simple Syrup) 30 ml FEEDTUBE PRN PRN PRN Reason: Hypoglycemia Simple Syrup (Simple Syrup) 15 ml FEEDTUBE PRN PRN PRN Reason: Hypoglycemia Simple Syrup (Simple Syrup) 30 ml FEEDTUBE PRN PRN PRN Reason: Hypoglycemia Sodium Bicarbonate (Sodium Bicarbonate) 325 mg FEEDTUBE PRN PRN PRN Reason: For Clogged Feeding Tube Sodium Bicarbonate (Sodium Bicarbonate) 325 mg FEEDTUBE PRN PRN PRN Reason: For Clogged Feeding Tube Sodium Chloride (Nacl 0.9% 500 Ml) 1 ml IV DIRECT ISSAC Vancomycin HCl (Vancomycin Pharmacy To Dose) 1 each IV PKCONSULT ISSAC PRN Reason: Protocol Physical Examination Vital signs: Vital Signs Pulse BP Pulse Ox 113 H 111/63 99 09/19/17 20:00 09/19/17 20:00 09/19/17 20:00 Results - Laboratory Findings CBC and BMP: 09/20/17 00:30 09/20/17 00:30 ABG POC ABG pH 7.231 (7.35-7.45) L 09/20/17 06:28 POC ABG pCO2 27.8 (35-45) L 09/20/17 06:28 POC ABG pO2 134 (80-105) H 09/20/17 06:28 POC ABG HCO3 11.7 09/20/17 06:28 POC ABG Total CO2 13 09/20/17 06:28 POC ABG O2 Sat 99 09/20/17 06:28 PT/INR, D-dimer PT 14.3 Sec. (12.2-14.9) 09/19/17 21:41 INR 1.06 (0.87-1.13) 09/19/17 21:41 D-Dimer 617.22 ng/mlDDU (0-234) H 09/19/17 21:41 Abnormal lab findings: Abnormal Labs 09/20/17 09/20/17 09/20/17 00:28 00:30 00:30 WBC 19.9 H RBC 2.30 L Hgb 5.9 L* Hct 19.9 L* MCH 26 L RDW 16.4 H Seg Neuts % (Manual) 84.0 H Lymphocytes % (Manual) 3.0 L Seg Neutrophils # Man 16.7 H Lymphocytes # (Manual) 0.6 L POC ABG pH 7.222 L POC ABG pCO2 32.9 L POC ABG pO2 186 H VBG pH 7.158 L* Potassium Chloride Carbon Dioxide BUN Creatinine Glucose POC Glucose Lactic Acid Calcium Iron TIBC Alkaline Phosphatase Ammonia Lactate Dehydrogenase C-Reactive Protein NT-Pro-B Natriuret Pep Total Protein Albumin Crossmatch 09/20/17 09/20/17 09/20/17 00:30 00:30 00:30 WBC RBC Hgb Hct MCH RDW Seg Neuts % (Manual) Lymphocytes % (Manual) Seg Neutrophils # Man Lymphocytes # (Manual) POC ABG pH POC ABG pCO2 POC ABG pO2 VBG pH Potassium 6.0 H Chloride 109.1 H Carbon Dioxide 12 L BUN 81 H Creatinine 3.2 H Glucose 535 H* POC Glucose 310 H Lactic Acid 8.20 H* Calcium 11.4 H Iron TIBC Alkaline Phosphatase 152 H Ammonia Lactate Dehydrogenase C-Reactive Protein NT-Pro-B Natriuret Pep Total Protein 6.0 L Albumin 2.9 L Crossmatch 09/20/17 09/20/17 09/20/17 03:00 03:20 05:20 WBC RBC Hgb Hct MCH RDW Seg Neuts % (Manual) Lymphocytes % (Manual) Seg Neutrophils # Man Lymphocytes # (Manual) POC ABG pH POC ABG pCO2 POC ABG pO2 VBG pH Potassium Chloride Carbon Dioxide BUN Creatinine Glucose POC Glucose 302 H Lactic Acid 6.10 H* Calcium Iron TIBC Alkaline Phosphatase Ammonia Lactate Dehydrogenase C-Reactive Protein NT-Pro-B Natriuret Pep Total Protein Albumin Crossmatch See Detail 09/20/17 09/20/17 09/20/17 06:28 11:45 15:40 WBC RBC Hgb Hct MCH RDW Seg Neuts % (Manual) Lymphocytes % (Manual) Seg Neutrophils # Man Lymphocytes # (Manual) POC ABG pH 7.231 L POC ABG pCO2 27.8 L POC ABG pO2 134 H VBG pH Potassium Chloride Carbon Dioxide BUN Creatinine Glucose POC Glucose 188 H Lactic Acid Calcium Iron TIBC Alkaline Phosphatase Ammonia Lactate Dehydrogenase C-Reactive Protein NT-Pro-B Natriuret Pep 2439 H Total Protein Albumin Crossmatch 09/20/17 09/20/17 09/20/17 15:40 15:40 15:40 WBC RBC Hgb Hct MCH RDW Seg Neuts % (Manual) Lymphocytes % (Manual) Seg Neutrophils # Man Lymphocytes # (Manual) POC ABG pH POC ABG pCO2 POC ABG pO2 VBG pH Potassium Chloride Carbon Dioxide BUN Creatinine Glucose POC Glucose Lactic Acid Calcium Iron 14 L TIBC 179 L Alkaline Phosphatase Ammonia 108.0 H Lactate Dehydrogenase 274 H C-Reactive Protein 16.50 H NT-Pro-B Natriuret Pep Total Protein Albumin Crossmatch
[2017-09-20 18:09] LABS: ISTAT Base Excess -16; ISTAT HCO3 11.2; ISTAT PCO2 26.1 (35-45); ISTAT PH 7.239 (7.35-7.45); ISTAT PO2 139 (80-105); ISTAT SO2 99; ISTAT TCO2 12
[2017-09-20] MEDS: CEPHULAC PO SCH (21:37)
--- NOTE | 2017-09-20 22:08 | Consultation ---
DATE OF CONSULTATION: 09/20/2017 CONSULTING PHYSICIAN: Dr. Duarte REASON FOR CONSULTATION: Acute hypoxemic respiratory failure on mechanical ventilator support, acute encephalopathy. CHIEF COMPLAINT AND HISTORY OF PRESENT ILLNESS: As follows: The patient is an 82-year-old female with past medical according to the record significant for a diagnosis of chronic obstructive lung disease, but also recently discharged from the hospital with an admission at that time for healthcare-associated pneumonia. The records actually indicate she was discharged to hospice. Hospice brought her into the Emergency Room yesterday with complaints of cough productive of yellowish phlegm, lethargy. They reported that the family reports the patient had been sleeping for the past couple of days. Yesterday, they finally decided to bring her into the hospital and history was given by her spouse. Emergency Room physician evaluated the patient it seems like she might have again aspirated at home. She was intubated, but he had to re-intubate her because the ET tube may have been in the GI tract. She describes food particles in the ET tube. After reintubation, bilateral breath sounds were hard and the consult was placed. When I stopped by to see the patient, she was on mechanical ventilatory support, nonresponsive. She was not on any sedating. I do not have any history of falls or trauma. The patient, according to the records, is not a current tobacco smoker. That is the history of presentation that I have. PAST MEDICAL HISTORY: Chronic obstructive lung disease, congestive heart failure, hypertension, chronic kidney disease, history of dementia. PAST SURGICAL HISTORY: Total hip replacement in the past. MEDICATIONS: She was on at the time I stopped by to see her, according to the medication administration record has been reviewed, I should say pertinent medications included DuoNeb treatments nebulized q. 6 hours, heparin 5000 units subq q.12 hours., Solu-Medrol 40 mg IV q. 12 hours, Zosyn 2.25 grams IV q.8 hours., Protonix 40 mg IV daily, and she received vancomycin, I believe she received 1 gram IV earlier. ALLERGIES: No known drug allergies. DIET: Thin lady, acute weight loss or gain, history is unknown. FAMILY AND SOCIAL HISTORY: Apparently lives in the community. No current alcohol, tobacco, or illicit drug use or abuse reported. Family history otherwise is unknown. REVIEW OF SYSTEMS: Unobtainable from the patient secondary to a medical and mental condition since she has been here. No gross hematochezia or melena. No gross hematuria. No hematemesis. No bloody tracheal secretions and no seizures have been witnessed. PHYSICAL EXAMINATION: VITAL SIGNS: At presentation, she was febrile, temperature 100 degrees Fahrenheit rectally, pulse of 113, respiratory rate 44, blood pressure 155/72, oxygen sats 92%, inspired oxygen concentration was not recorded. GENERAL: She looks her stated age. She is lying on the stretcher and absolutely nonresponsive even to sternal rub, appears in [id number] respiratory distress. HEAD, EYES, EARS, NOSE AND THROAT: She was normocephalic, atraumatic. Endotracheal tube was in place, taped at the lips around 22 cm. NECK: Grossly, there were no palpable lymph nodes in the supraclavicular or submandibular lymph node chains. No gross jugular venous distention, no thyromegaly. LUNGS: Auscultation of both lung reese reveal bilateral rales, no wheezing, slightly prolonged expiratory phase. HEART: Sounds 1 and 2 are heard. They were regular in rate and rhythm at the time of my evaluation. No rubs. She had a systolic murmur, loudest apparently in the apex. ABDOMEN: Soft, bowel sounds are positive. Does not appear tender. No hepatosplenomegaly. EXTREMITIES: Without overt digital clubbing. No cyanosis, no edema. Bilaterally, dorsalis pedal pulses are palpable and about 2+. The skin is of poor turgor; however, no tenting, no rash, no cellulitis. NEUROLOGIC: She is unresponsive. She is intubated. She is not sedated. Pupils are equal, round, reactive to light. Extraocular muscle movements could not be assessed. She flinches perhaps to deep sternal rub. LABORATORY AND DIAGNOSTIC DATA: From my review are as follows: Admission white cell count 19,900 with hemoglobin of 5.9, hematocrit of 19.9, and platelet count of 235. No band forms reported. D-dimer is 617. INR is 1.06. Arterial blood gas at presentation showed a pH of 7.29, pCO2 of 32, pO2 of 462 that was on 100% FiO2. Serum sodium was 149, potassium 6.7, chloride , bicarbonate 10, BUN 77, creatinine 2.8, and glucose of 134. Lactic acid level was 8.1. Albumin was 2.9. Urinalysis is unremarkable. Most recent labs, pH was 7.23, pCO2 of 28, pO2 of 134 that was earlier this morning around 8:00 a.m. Lactic acid at that time was 6.10. Microbiology studies have been reviewed. Two sets of blood cultures were drawn, no growth to date. Serum iron was low at 14. A chest x-ray was ordered. I have reviewed the chest x-ray. On initial chest x-ray shows an ET tube in place with the tip right at the right mainstem opening, no obvious focal infiltrates, chronic-looking increased interstitial markings. Repeat chest x-ray: ET tube has been retracted it is about 3-4 cm above the rocio, perhaps some mild blunting of both costophrenic angles, but no overt pulmonary edema patten. CT of the brain was also done and it has read as no acute intracranial abnormality. ASSESSMENT: We have an elderly lady in with an acute respiratory failure, clinically possibly due to an aspiration pneumonia who at the last admission according to the notes I am seeing on the discharge summary was discharged to home hospice. We will certainly need to make sure that we meeting the family's wishes in terms of end of life care and in particular the patient's wishes, for now the assessment will be as follows: 1. Acute hypoxemic respiratory failure, on mechanical ventilatory support. 2. Possible aspiration pneumonia. 3. Sepsis syndrome. 4. Severe anemia. 5. Acute, possibly on chronic encephalopathy. 6. Acute kidney injury, on chronic. 7. Hyperkalemia. 8. Lactic acidosis. 9. Hyperglycemia. PLAN: 1. Continue full mechanical ventilatory support. Repeat arterial blood gas and make changes as necessary. [place] ventilator-associated bundle and address daily. Aspiration precautions will be maintained including elevation of the head of the bed. Bronchodilators will be continued as ordered. I will add long-acting bronchodilators into the mix. We will continue empiric antibiotic therapy as ordered. I will order a CRP level, lactic acid levels, and trend as necessary. Gentle volume hydration in the short-term, it is unclear what her cardiac function is; however, I do see a 2D echocardiogram from the 09/27/2014 with a normal ejection fraction, but diastolic dysfunction. She is receiving blood transfusion. A GI evaluation will be in order. She will be continued on GI prophylaxis in the meantime. Nephrology evaluation is in order. We will continue gentle hydration while keeping an eye on her BUN and creatinine. I will order urine sodium and urine creatinine, and do a fractional excretion of sodium calculation. The CT scan is unremarkable. Flu and pneumonia vaccination will be per protocol. Thank you very much for the consult. I should mention that an ammonia level has been ordered and I will see that is contributing to her acute encephalopathy. We will follow along. We will make further recommendations as picture progresses at this point. I have spent about 35-40 minutes of critical care time without overlap and excluding any procedural time that she may be necessary. She is critically ill, on life-sustaining interventions including mechanical ventilator support, at high risk for further deterioration including . Case management will be consulted to follow up on the end of life wishes of the patient. JOB# [id number] WILL/EMILIA
[2017-09-21] MEDS: CEPHULAC PO SCH ×6 (02:58→23:20)
[2017-09-21] MEDS: NACL 0.9% 1000 ML 1,000 ML IV SCH ×2 (04:19→06:37)
[2017-09-21 04:46] LABS: ISTAT Base Excess -20; ISTAT PCO2 21.6 (35-45); ISTAT PH 7.178 (7.35-7.45); ISTAT PO2 143 (80-105); ISTAT SO2 99; ISTAT TCO2 9
[2017-09-21] MEDS ORDERED: SODIUM BICARBONATE IV ONE (05:00)
[2017-09-21 05:22] LABS: Calcium 8.3 mg/dL (8.4-10.2); Chloride 118.4 mmol/L (98-107); Potassium 5.9 mmol/L (3.6-5.0)
[2017-09-21 05:29] LABS: Hematocrit 27.8 % (30.3-42.9); Hemoglobin 9.1 gm/dl (10.1-14.3); Mean Corpuscular HGB Conc 33 % (30-34); Mean Corpuscular Hemoglobin 28 pg (28-32); Mean Corpuscular Volume 85 fl (79-97); Platelet Count 148 K/mm3 (140-440); Red Blood Count 3.28 M/mm3 (3.65-5.03); Red Cell Distribution Width 15.9 % (13.2-15.2); White Blood Count 8.5 K/mm3 (4.5-11.0)
[2017-09-21] MEDS: DUONEB *Not for PRN Use IH SCH ×4 (06:33→19:52)
[2017-09-21] MEDS: ZOSYN/NS 2.25 GM/50ML 2.25 GM/50 ML BAG IV SCH ×3 (06:55→23:19)
[2017-09-21] MEDS ORDERED: Vasostrict 20 UNIT in NACL 0.9% 100 ML IV SCH (07:00)
[2017-09-21 07:18] LABS: Anisocytosis 1+; Basophils % (Manual) 0 % (0.0-1.8); Blastocytes % (Manual) 0 %; Elliptocytes Few; Eosinophils % (Manual) 0 % (0.0-4.3); Polychromasia Few
[2017-09-21 07:19] LABS: Diff Status Complete; Dohle Bodies Rare; Toxic Vacuolation Rare
[2017-09-21 07:20] LABS: Platelet Estimate Consistent w Auto
--- NOTE | 2017-09-21 07:35 | XRay Report ---
CHEST 1 VIEW INDICATION: Respiratory failure followup. COMPARISON: Yesterday. FINDINGS: Portable, frontal chest radiograph, 2 AM, 09/21/2017 reveals stable cardiomediastinal silhouette, supporting devices, appearance of the lungs and osseous structures, providing for the difference in technique. Displaced, angulated right humeral neck fracture again noted. CONCLUSION: No acute chest process or significant interval change. Thank you for the opportunity to participate in this patient's care.
[2017-09-21] MEDS: HEPARIN SUB-Q SCH ×2 (10:18→23:20)
--- NOTE | 2017-09-21 10:27 | Progress Note ---
Assessment and Plan Assessment and plan: Acute hypoxemic respiratory failure. Continue mechanical ventilation. Pulmonary consultation pending. Septic shock. Etiology likely secondary to aspiration pneumonia. Continue IV antibiotics and follow-up blood cultures and lactic acid levels. Patient currently require pressors of vasopressin Metabolic acidosis/lactic acidosis. Etiology secondary to septic shock and THONY/ ARF Aspiration pneumonia/pneumonitis. Continue IV antibiotics and follow-up 0. Chest x-ray. Toxic metabolic encephalopathy. Continue to treat underlying causes. Severe anemia. Etiology is unknown. Check Hemoccult stool. Check iron, ferritin, TIBC, LVH, reticulocyte count and B12/folate. Hematology consultation. Transfuse for hemoglobin less than 7.0. Hyperkalemia. Nephrology consultation. We will give calcium and Kayexalate. Consider bicarbonate drip. Follow-up BMP and treat accordingly. Acute on chronic kidney failure. Patient appeared to have baseline creatinine of 1.3~1.7 in May of this year. Etiology likely secondary to sepsis/ATN. Check bilateral renal ultrasound, rule out obstructive nephropathy. Nephrology consultation. Acute COPD exacerbation. Start IV steroids and continue breathing treatment/ bronchodilators. The high probability of a clinically significant, sudden or life threatening deterioration of the [respiratory and renal] system(s) required my full and direct attention, intervention and personal management. The aggregate critical care time was [31] minutes. This time is in addition to time spent performing reported procedures but includes the following: [x] Data Review and interpretation [x] Patient assessment and monitoring of vital signs [x] Documentation [x] Medication orders and management History Interval history: No new issues overnight. Patient remains orally intubated and sedated. Patient currently on pressors of vasopressin Hospitalist Physical - Constitutional Vitals: Temp Pulse Resp BP Pulse Ox 97.4 F L 115 H 30 H 95/62 100 09/21/17 08:00 09/21/17 08:45 09/21/17 08:45 09/21/17 08:45 09/21/17 07:53 General appearance: Present: no acute distress, well-nourished, other (orally intubated) - EENT Eyes: Present: PERRL, EOM intact ENT: hearing intact, clear oral mucosa, dentition normal - Neck Neck: Present: supple, normal ROM - Respiratory Respiratory effort: normal Respiratory: bilateral: CTA - Cardiovascular Rhythm: regular Heart Sounds: Present: S1 & S2. Absent: gallop, rub - Extremities Extremities: no ischemia, No edema, Full ROM - Abdominal General gastrointestinal: soft, non-tender, non-distended, normal bowel sounds - Integumentary Integumentary: Present: clear, warm, dry - Neurologic Neurologic: CNII-XII intact, moves all extremities Results - Labs CBC & Chem 7: 09/21/17 04:46 09/21/17 04:46 Labs: Laboratory Last Values WBC 8.5 K/mm3 (4.5-11.0) 09/21/17 04:46 RBC 3.28 M/mm3 (3.65-5.03) L 09/21/17 04:46 Hgb 9.1 gm/dl (10.1-14.3) L D 09/21/17 04:46 Hct 27.8 % (30.3-42.9) L D 09/21/17 04:46 MCV 85 fl (79-97) 09/21/17 04:46 MCH 28 pg (28-32) 09/21/17 04:46 MCHC 33 % (30-34) 09/21/17 04:46 RDW 15.9 % (13.2-15.2) H 09/21/17 04:46 Plt Count 148 K/mm3 (140-440) 09/21/17 04:46 Add Manual Diff Complete 09/21/17 04:46 Total Counted 100 09/21/17 04:46 Seg Neuts % (Manual) 20.0 % (40.0-70.0) L 09/21/17 04:46 Band Neutrophils % 63.0 % 09/21/17 04:46 Lymphocytes % (Manual) 10.0 % (13.4-35.0) L 09/21/17 04:46 Reactive Lymphs % (Man) 0 % 09/21/17 04:46 Monocytes % (Manual) 4.0 % (0.0-7.3) 09/21/17 04:46 Eosinophils % (Manual) 0 % (0.0-4.3) 09/21/17 04:46 Basophils % (Manual) 0 % (0.0-1.8) 09/21/17 04:46 Metamyelocytes % 3.0 % 09/21/17 04:46 Myelocytes % 0 % 09/21/17 04:46 Promyelocytes % 0 % 09/21/17 04:46 Blast Cells % 0 % 09/21/17 04:46 Nucleated RBC % 6.0 % (0.0-0.9) H 09/21/17 04:46 Seg Neutrophils # Man 1.7 K/mm3 (1.8-7.7) L 09/21/17 04:46 Band Neutrophils # 5.4 K/mm3 09/21/17 04:46 Lymphocytes # (Manual) 0.9 K/mm3 (1.2-5.4) L 09/21/17 04:46 Abs React Lymphs (Man) 0.0 K/mm3 09/21/17 04:46 Monocytes # (Manual) 0.3 K/mm3 (0.0-0.8) 09/21/17 04:46 Eosinophils # (Manual) 0.0 K/mm3 (0.0-0.4) 09/21/17 04:46 Basophils # (Manual) 0.0 K/mm3 (0.0-0.1) 09/21/17 04:46 Metamyelocytes # 0.3 K/mm3 09/21/17 04:46 Myelocytes # 0.0 K/mm3 09/21/17 04:46 Promyelocytes # 0.0 K/mm3 09/21/17 04:46 Blast Cells # 0.0 K/mm3 09/21/17 04:46 WBC Morphology Not Reportable 09/21/17 04:46 Hypersegmented Neuts Not Reportable 09/21/17 04:46 Hyposegmented Neuts Not Reportable 09/21/17 04:46 Hypogranular Neuts Not Reportable 09/21/17 04:46 Smudge Cells Not Reportable 09/21/17 04:46 Toxic Granulation Not Reportable 09/21/17 04:46 Toxic Vacuolation Rare 09/21/17 04:46 Dohle Bodies Rare 09/21/17 04:46 Pelger-Huet Anomaly Not Reportable 09/21/17 04:46 Ruddy Rods Not Reportable 09/21/17 04:46 Platelet Estimate Consistent w auto 09/21/17 04:46 Clumped Platelets Not Reportable 09/21/17 04:46 Plt Clumps, EDTA Not Reportable 09/21/17 04:46 Large Platelets Not Reportable 09/21/17 04:46 Giant Platelets Not Reportable 09/21/17 04:46 Platelet Satelliting Not Reportable 09/21/17 04:46 Plt Morphology Comment Not Reportable 09/21/17 04:46 RBC Morphology Not Reportable 09/21/17 04:46 Dimorphic RBCs Not Reportable 09/21/17 04:46 Polychromasia Few 09/21/17 04:46 Hypochromasia Not Reportable 09/21/17 04:46 Poikilocytosis Not Reportable 09/21/17 04:46 Anisocytosis 1+ 09/21/17 04:46 Microcytosis Not Reportable 09/21/17 04:46 Macrocytosis Not Reportable 09/21/17 04:46 Spherocytes Not Reportable 09/21/17 04:46 Pappenheimer Bodies Not Reportable 09/21/17 04:46 Sickle Cells Not Reportable 09/21/17 04:46 Target Cells Not Reportable 09/21/17 04:46 Tear Drop Cells Not Reportable 09/21/17 04:46 Ovalocytes Not Reportable 09/21/17 04:46 Helmet Cells Not Reportable 09/21/17 04:46 [place] Bodies Not Reportable 09/21/17 04:46 [place] Rings Not Reportable 09/21/17 04:46 Krystin Cells Not Reportable 09/21/17 04:46 Bite Cells Not Reportable 09/21/17 04:46 Crenated Cell Not Reportable 09/21/17 04:46 Elliptocytes Few 09/21/17 04:46 Acanthocytes (Spur) Not Reportable 09/21/17 04:46 Rouleaux Not Reportable 09/21/17 04:46 Hemoglobin C Crystals Not Reportable 09/21/17 04:46 Schistocytes Not Reportable 09/21/17 04:46 Malaria parasites Not Reportable 09/21/17 04:46 Percent Retic 1.78 % (0.78-2.58) 09/20/17 15:40 Maciej Bodies Not Reportable 09/21/17 04:46 Hem Pathologist Commnt No 09/21/17 04:46 PT 14.3 Sec. (12.2-14.9) 09/19/17 21:41 INR 1.06 (0.87-1.13) 09/19/17 21:41 D-Dimer 617.22 ng/mlDDU (0-234) H 09/19/17 21:41 POC ABG pH 7.178 (7.35-7.45) L 09/21/17 04:38 POC ABG pCO2 21.6 (35-45) L 09/21/17 04:38 POC ABG pO2 143 (80-105) H 09/21/17 04:38 POC ABG HCO3 8.0 09/21/17 04:38 POC ABG Total CO2 9 09/21/17 04:38 POC ABG O2 Sat 99 09/21/17 04:38 POC ABG Base Excess -20 09/21/17 04:38 VBG pH 7.158 (7.320-7.420) L* 09/20/17 00:30 FiO2 28 % 09/21/17 04:38 Sodium 153 mmol/L (137-145) H D 09/21/17 04:46 Potassium 5.9 mmol/L (3.6-5.0) H 09/21/17 04:46 Chloride 118.4 mmol/L (98-107) H 09/21/17 04:46 Carbon Dioxide 9 mmol/L (22-30) L* 09/21/17 04:46 Anion Gap 32 mmol/L 09/21/17 04:46 BUN 94 mg/dL (7-17) H 09/21/17 04:46 Creatinine 4.1 mg/dL (0.7-1.2) H 09/21/17 04:46 Estimated GFR 10 ml/min 09/21/17 04:46 BUN/Creatinine Ratio 23 % 09/21/17 04:46 Glucose 144 mg/dL (65-100) H 09/21/17 04:46 POC Glucose 201 (70-105) H 09/21/17 04:04 Lactic Acid 9.20 mmol/L (0.7-2.0) H* 09/20/17 19:44 Calcium 8.3 mg/dL (8.4-10.2) L D 09/21/17 04:46 Iron 14 ug/dL (37-170) L 09/20/17 15:40 TIBC 179 mcg/dL (250-450) L 09/20/17 15:40 Ferritin 86.1 ng/mL (13.0-400.0) 09/20/17 15:48 Total Bilirubin 0.20 mg/dL (0.1-1.2) 09/20/17 00:30 AST 24 units/L (5-40) 09/20/17 00:30 ALT 10 units/L (7-56) 09/20/17 00:30 Alkaline Phosphatase 152 units/L (35-129) H 09/20/17 00:30 Ammonia 116.0 umol/L (25-60) H 09/21/17 04:46 Lactate Dehydrogenase 274 units/L (91-180) H 09/20/17 15:40 C-Reactive Protein 16.50 mg/dL (0.00-1.30) H 09/20/17 15:40 NT-Pro-B Natriuret Pep 2439 pg/mL (0-900) H 09/20/17 15:40 Total Protein 6.0 g/dL (6.3-8.2) L 09/20/17 00:30 Albumin 2.9 g/dL (3.9-5) L 09/20/17 00:30 Albumin/Globulin Ratio 0.9 % 09/20/17 00:30 Vitamin B12 616.7 pg/mL (211-911) 09/20/17 15:48 Folate 12.46 ng/mL (7.3-26.0) 09/20/17 15:49 Urine Color Straw (Yellow) 09/19/17 22:28 Urine Turbidity Clear (Clear) 09/19/17 22:28 Urine pH 6.0 (5.0-7.0) 09/19/17 22:28 Ur Specific [place] 1.013 (1.003-1.030) 09/19/17 22:28 Urine Protein 100 mg/dl mg/dL (Negative) 09/19/17 22:28 Urine Glucose (UA) Neg mg/dL (Negative) 09/19/17 22:28 Urine Ketones Neg mg/dL (Negative) 09/19/17 22:28 Urine Blood Neg (Negative) 09/19/17 22:28 Urine Nitrite Neg (Negative) 09/19/17 22:28 Urine Bilirubin Neg (Negative) 09/19/17 22:28 Urine Urobilinogen < 2.0 mg/dL (<2.0) 09/19/17 22:28 Ur Leukocyte Esterase Neg (Negative) 09/19/17 22:28 Urine WBC (Auto) 2.0 /HPF (0.0-6.0) 09/19/17 22:28 Urine RBC (Auto) 1.0 /HPF (0.0-6.0) 09/19/17 22:28 U Epithel Cells (Auto) < 1.0 /HPF (0-13.0) 09/19/17 22:28 Urine Mucus Few /HPF 09/19/17 22:28 Urine Creatinine 40.9 mg/dL (0.1-20.0) H 09/21/17 04:00 Urine Sodium 84 mEq/L 09/21/17 04:00 Random Vancomycin 13.1 ug/mL (0-40.0) 09/21/17 04:46 Blood Type A POSITIVE 09/20/17 03:00 Antibody Screen Negative 09/20/17 03:00 Crossmatch See Detail 09/20/17 03:00
--- NOTE | 2017-09-21 10:38 | Progress Note ---
Assessment and Plan - Patient Problems (1) Septic shock Current Visit: Yes Status: Acute Plan to address problem: Place central venous access for vasopressors Start norepinephrine for MAP>65 Volume resuscitation- use soduim bacarbonate in D5W Accurate monitoring of urine output Get a bladder pressure Get abdominal/pelvic CT scan with oral contrast..possibility of ischemic colitis or intraabdominal source for sepsis. VTE and stress ulcer prophylaxis (2) Acute respiratory failure with hypoxemia Current Visit: Yes Status: Acute Plan to address problem: Continue with MVS Lung protective strategies, adjust tidal volume Daily SBT and SAT as tolerated Analgesia and agitation management Avoid benzodiazepines Early mobility VTE and stress ulcer prophylaxis Hold off on enteric nutrition until the bowel is evaluated radiographically Accucheck with glycemic control HOB>40, aspiration precautions (3) Lactic acidosis Current Visit: Yes Status: Acute Plan to address problem: Severe, r/o ischemic colitis. monitor closely (4) Acute renal failure Current Visit: No Status: Resolved Qualifiers: Acute renal failure type: unspecified Qualified Code(s): N17.9 - Acute kidney failure, unspecified Plan to address problem: Renal consulted. Avoid nephrotoxic agents, adjust medications for GFR (5) Altered mental status Current Visit: Yes Status: Acute Qualifiers: Altered mental status type: A Coma depth: C Coma timing: C Plan to address problem: Part of the sepsis syndrome Avoid mood altering medications for now. Currently on lactulose per primary service for hyper ammonia (6) Hypernatremia Current Visit: Yes Status: Acute Plan to address problem: Replace deficit (7) Acidosis, hyperchloremic Current Visit: Yes Status: Acute Plan to address problem: Avoid normal saline as isotonic solution for resuscitation. Use ringers lactate for now Subjective Date of service: 09/21/17 Interval history: Seen and examined. Vitals, labs, medications, chart reviewed. Admitted and intubated for encephalopathy associated with septic shock. Has developed acute renal failure, oliguric, on going severe anion gap metabolic acidosis Discussed on interdisciplinary rounds. Currently on vasopressin infusion, with MAP of 75. Vanc and Zosyn ABG pH 7.17/21/143/8 -20 Vent AC-VC 30/550/5/28% Objective - Exam Narrative Exam: GENERAL: unresponsive pt intubated, no ventilator-patient dysynchrony Chronically ill looking woma, frail HEENT: Normocephalic. Atraumatic. Extraocular motions are intact. Patient has moist mucous membranes. NECK: Supple. There is no adenopathy noted. CHEST/LUNGS: rhonhi becca. HEART/CARDIOVASCULAR: Regular. tachycardia. There is no gallop rub or murmur. ABDOMEN: Abdomen is soft, Patient has normal bowel sounds. Severe lower abdominal distension with hypoactive bowel sound. Has some tenderness in the right lower quadrant. Flanks show some mottling. SKIN: There is no rash. There is no edema. There is no diaphoresis. NEURO: Patient unresponsive, intubated and sedated MUSCULOSKELETAL: No obvious deformity noted Psychiatric could not be assessed Vascular system no lymphadenopathy distal pulses 2+ bilaterally Vital Signs - 12hr 09/20/17 09/20/17 09/20/17 22:40 22:50 23:00 Temperature Pulse Rate 110 H 109 H 105 H Pulse Rate [ Anterior Bilateral Throughout] Respiratory 25 H 25 H 25 H Rate Respiratory Rate [Anterior Bilateral Throughout] Blood Pressure 94/49 85/47 95/51 O2 Sat by Pulse Oximetry 09/20/17 09/20/17 09/20/17 23:10 23:20 23:30 Temperature Pulse Rate 106 H 109 H 109 H Pulse Rate [ Anterior Bilateral Throughout] Respiratory 25 H 25 H 25 H Rate Respiratory Rate [Anterior Bilateral Throughout] Blood Pressure 95/51 87/60 89/50 O2 Sat by Pulse Oximetry 09/20/17 09/20/17 09/21/17 23:40 23:50 00:00 Temperature 97.3 F L Pulse Rate 108 H 108 H 107 H Pulse Rate [ Anterior Bilateral Throughout] Respiratory 25 H 25 H 25 H Rate Respiratory Rate [Anterior Bilateral Throughout] Blood Pressure 89/50 97/68 87/54 O2 Sat by Pulse Oximetry 09/21/17 09/21/17 09/21/17 00:10 00:20 00:24 Temperature Pulse Rate 109 H 107 H 106 H Pulse Rate [ Anterior Bilateral Throughout] Respiratory 25 H 25 H Rate Respiratory Rate [Anterior Bilateral Throughout] Blood Pressure 87/54 87/54 91/53 O2 Sat by Pulse Oximetry 09/21/17 09/21/17 09/21/17 00:30 00:40 00:50 Temperature Pulse Rate 104 H 108 H 106 H Pulse Rate [ Anterior Bilateral Throughout] Respiratory 25 H 25 H 25 H Rate Respiratory Rate [Anterior Bilateral Throughout] Blood Pressure 105/65 105/65 93/51 O2 Sat by Pulse 83 L Oximetry 09/21/17 09/21/17 09/21/17 01:00 01:10 01:20 Temperature Pulse Rate 106 H 110 H 110 H Pulse Rate [ Anterior Bilateral Throughout] Respiratory 25 H 25 H 25 H Rate Respiratory Rate [Anterior Bilateral Throughout] Blood Pressure 78/48 78/48 82/52 O2 Sat by Pulse Oximetry 09/21/17 09/21/17 09/21/17 01:30 01:40 01:50 Temperature Pulse Rate 111 H 114 H 108 H Pulse Rate [ Anterior Bilateral Throughout] Respiratory 25 H 25 H 25 H Rate Respiratory Rate [Anterior Bilateral Throughout] Blood Pressure 83/56 83/56 80/52 O2 Sat by Pulse Oximetry 09/21/17 09/21/17 09/21/17 02:00 02:10 02:20 Temperature Pulse Rate 113 H 113 H 110 H Pulse Rate [ Anterior Bilateral Throughout] Respiratory 25 H 25 H 25 H Rate Respiratory Rate [Anterior Bilateral Throughout] Blood Pressure 79/47 79/47 84/51 O2 Sat by Pulse Oximetry 09/21/17 09/21/17 09/21/17 02:30 02:40 02:50 Temperature Pulse Rate 112 H 111 H 109 H Pulse Rate [ Anterior Bilateral Throughout] Respiratory 25 H 25 H 25 H Rate Respiratory Rate [Anterior Bilateral Throughout] Blood Pressure 83/52 83/52 81/50 O2 Sat by Pulse Oximetry 09/21/17 09/21/17 09/21/17 03:00 03:10 03:20 Temperature Pulse Rate 109 H 109 H 110 H Pulse Rate [ Anterior Bilateral Throughout] Respiratory 25 H 25 H 26 H Rate Respiratory Rate [Anterior Bilateral Throughout] Blood Pressure 73/43 73/43 76/40 O2 Sat by Pulse Oximetry 09/21/17 09/21/17 09/21/17 03:30 03:40 03:50 Temperature Pulse Rate 110 H 112 H 111 H Pulse Rate [ Anterior Bilateral Throughout] Respiratory 25 H 25 H 25 H Rate Respiratory Rate [Anterior Bilateral Throughout] Blood Pressure 69/37 69/37 75/31 O2 Sat by Pulse Oximetry 09/21/17 09/21/17 09/21/17 04:00 04:10 04:20 Temperature 97.9 F Pulse Rate 109 H 109 H 109 H Pulse Rate [ Anterior Bilateral Throughout] Respiratory 21 25 H 21 Rate Respiratory Rate [Anterior Bilateral Throughout] Blood Pressure 69/37 67/33 74/42 O2 Sat by Pulse Oximetry 09/21/17 09/21/17 09/21/17 04:30 04:32 04:40 Temperature Pulse Rate 109 H 104 H 109 H Pulse Rate [ Anterior Bilateral Throughout] Respiratory 25 H 25 H Rate Respiratory Rate [Anterior Bilateral Throughout] Blood Pressure 72/43 72/43 72/44 O2 Sat by Pulse Oximetry 09/21/17 09/21/17 09/21/17 04:47 04:50 05:00 Temperature Pulse Rate 108 H 110 H Pulse Rate [ Anterior Bilateral Throughout] Respiratory 20 24 24 Rate Respiratory Rate [Anterior Bilateral Throughout] Blood Pressure 71/44 74/46 O2 Sat by Pulse 100 Oximetry 09/21/17 09/21/17 09/21/17 05:10 05:20 05:30 Temperature Pulse Rate 108 H 109 H 118 H Pulse Rate [ Anterior Bilateral Throughout] Respiratory 25 H 25 H 25 H Rate Respiratory Rate [Anterior Bilateral Throughout] Blood Pressure 78/42 73/44 86/51 O2 Sat by Pulse Oximetry 09/21/17 09/21/17 09/21/17 05:40 05:50 06:00 Temperature Pulse Rate 112 H 116 H 117 H Pulse Rate [ Anterior Bilateral Throughout] Respiratory 25 H 25 H 24 Rate Respiratory Rate [Anterior Bilateral Throughout] Blood Pressure 86/51 78/44 78/44 O2 Sat by Pulse Oximetry 09/21/17 09/21/17 09/21/17 06:10 06:20 06:30 Temperature Pulse Rate 115 H 113 H 114 H Pulse Rate [ Anterior Bilateral Throughout] Respiratory 18 26 H 24 Rate Respiratory Rate [Anterior Bilateral Throughout] Blood Pressure 65/42 65/23 66/41 O2 Sat by Pulse 55 L Oximetry 09/21/17 09/21/17 09/21/17 06:40 06:50 07:00 Temperature Pulse Rate 108 H 117 H 114 H Pulse Rate [ Anterior Bilateral Throughout] Respiratory 25 H 30 H 30 H Rate Respiratory Rate [Anterior Bilateral Throughout] Blood Pressure 66/41 98/62 92/55 O2 Sat by Pulse Oximetry 09/21/17 09/21/17 09/21/17 07:10 07:20 07:30 Temperature Pulse Rate 114 H 114 H 113 H Pulse Rate [ Anterior Bilateral Throughout] Respiratory 30 H 30 H 30 H Rate Respiratory Rate [Anterior Bilateral Throughout] Blood Pressure 66/41 98/63 91/59 O2 Sat by Pulse Oximetry 09/21/17 09/21/17 09/21/17 07:45 07:53 08:00 Temperature 97.4 F L Pulse Rate 117 H 115 H 117 H Pulse Rate [ 119 H Anterior Bilateral Throughout] Respiratory 30 H 30 H Rate Respiratory 30 H Rate [Anterior Bilateral Throughout] Blood Pressure 105/73 105/73 102/58 O2 Sat by Pulse 100 Oximetry 09/21/17 09/21/17 09/21/17 08:16 08:20 08:30 Temperature Pulse Rate 110 H 114 H Pulse Rate [ 116 H Anterior Bilateral Throughout] Respiratory 30 H 30 H Rate Respiratory 30 H Rate [Anterior Bilateral Throughout] Blood Pressure 102/58 99/72 O2 Sat by Pulse Oximetry 09/21/17 08:45 Temperature Pulse Rate 115 H Pulse Rate [ Anterior Bilateral Throughout] Respiratory 30 H Rate Respiratory Rate [Anterior Bilateral Throughout] Blood Pressure 95/62 O2 Sat by Pulse Oximetry CBC and BMP: 09/21/17 04:46 09/21/17 04:46 ABG, PT/INR, D-dimer: ABG POC ABG pH 7.178 (7.35-7.45) L 09/21/17 04:38 POC ABG pCO2 21.6 (35-45) L 09/21/17 04:38 POC ABG pO2 143 (80-105) H 09/21/17 04:38 POC ABG HCO3 8.0 09/21/17 04:38 POC ABG Total CO2 9 09/21/17 04:38 POC ABG O2 Sat 99 09/21/17 04:38 PT/INR, D-dimer PT 14.3 Sec. (12.2-14.9) 09/19/17 21:41 INR 1.06 (0.87-1.13) 09/19/17 21:41 D-Dimer 617.22 ng/mlDDU (0-234) H 09/19/17 21:41 Abnormal lab findings: Abnormal Labs 09/20/17 09/20/17 09/20/17 00:28 00:30 00:30 WBC 19.9 H RBC 2.30 L Hgb 5.9 L* Hct 19.9 L* MCH 26 L RDW 16.4 H Seg Neuts % (Manual) 84.0 H Lymphocytes % (Manual) 3.0 L Nucleated RBC % Seg Neutrophils # Man 16.7 H Lymphocytes # (Manual) 0.6 L POC ABG pH 7.222 L POC ABG pCO2 32.9 L POC ABG pO2 186 H VBG pH 7.158 L* Sodium Potassium Chloride Carbon Dioxide BUN Creatinine Glucose POC Glucose Lactic Acid Calcium Iron TIBC Alkaline Phosphatase Ammonia Lactate Dehydrogenase C-Reactive Protein NT-Pro-B Natriuret Pep Total Protein Albumin Urine Creatinine Crossmatch 09/20/17 09/20/17 09/20/17 00:30 00:30 00:30 WBC RBC Hgb Hct MCH RDW Seg Neuts % (Manual) Lymphocytes % (Manual) Nucleated RBC % Seg Neutrophils # Man Lymphocytes # (Manual) POC ABG pH POC ABG pCO2 POC ABG pO2 VBG pH Sodium Potassium 6.0 H Chloride 109.1 H Carbon Dioxide 12 L BUN 81 H Creatinine 3.2 H Glucose 535 H* POC Glucose 310 H Lactic Acid 8.20 H* Calcium 11.4 H Iron TIBC Alkaline Phosphatase 152 H Ammonia Lactate Dehydrogenase C-Reactive Protein NT-Pro-B Natriuret Pep Total Protein 6.0 L Albumin 2.9 L Urine Creatinine Crossmatch 09/20/17 09/20/17 09/20/17 03:00 03:20 05:20 WBC RBC Hgb Hct MCH RDW Seg Neuts % (Manual) Lymphocytes % (Manual) Nucleated RBC % Seg Neutrophils # Man Lymphocytes # (Manual) POC ABG pH POC ABG pCO2 POC ABG pO2 VBG pH Sodium Potassium Chloride Carbon Dioxide BUN Creatinine Glucose POC Glucose 302 H Lactic Acid 6.10 H* Calcium Iron TIBC Alkaline Phosphatase Ammonia Lactate Dehydrogenase C-Reactive Protein NT-Pro-B Natriuret Pep Total Protein Albumin Urine Creatinine Crossmatch See Detail 09/20/17 09/20/17 09/20/17 06:28 11:45 15:40 WBC RBC Hgb Hct MCH RDW Seg Neuts % (Manual) Lymphocytes % (Manual) Nucleated RBC % Seg Neutrophils # Man Lymphocytes # (Manual) POC ABG pH 7.231 L POC ABG pCO2 27.8 L POC ABG pO2 134 H VBG pH Sodium Potassium Chloride Carbon Dioxide BUN Creatinine Glucose POC Glucose 188 H Lactic Acid Calcium Iron TIBC Alkaline Phosphatase Ammonia Lactate Dehydrogenase C-Reactive Protein NT-Pro-B Natriuret Pep 2439 H Total Protein Albumin Urine Creatinine Crossmatch 09/20/17 09/20/17 09/20/17 15:40 15:40 15:40 WBC RBC Hgb Hct MCH RDW Seg Neuts % (Manual) Lymphocytes % (Manual) Nucleated RBC % Seg Neutrophils # Man Lymphocytes # (Manual) POC ABG pH POC ABG pCO2 POC ABG pO2 VBG pH Sodium Potassium Chloride Carbon Dioxide BUN Creatinine Glucose POC Glucose Lactic Acid Calcium Iron 14 L TIBC 179 L Alkaline Phosphatase Ammonia 108.0 H Lactate Dehydrogenase 274 H C-Reactive Protein 16.50 H NT-Pro-B Natriuret Pep Total Protein Albumin Urine Creatinine Crossmatch 09/20/17 09/20/17 09/20/17 18:08 19:44 23:54 WBC RBC Hgb Hct MCH RDW Seg Neuts % (Manual) Lymphocytes % (Manual) Nucleated RBC % Seg Neutrophils # Man Lymphocytes # (Manual) POC ABG pH 7.239 L POC ABG pCO2 26.1 L POC ABG pO2 139 H VBG pH Sodium Potassium Chloride Carbon Dioxide BUN Creatinine Glucose POC Glucose 67 L Lactic Acid 9.20 H* Calcium Iron TIBC Alkaline Phosphatase Ammonia Lactate Dehydrogenase C-Reactive Protein NT-Pro-B Natriuret Pep Total Protein Albumin Urine Creatinine Crossmatch 09/21/17 09/21/17 09/21/17 04:00 04:04 04:38 WBC RBC Hgb Hct MCH RDW Seg Neuts % (Manual) Lymphocytes % (Manual) Nucleated RBC % Seg Neutrophils # Man Lymphocytes # (Manual) POC ABG pH 7.178 L POC ABG pCO2 21.6 L POC ABG pO2 143 H VBG pH Sodium Potassium Chloride Carbon Dioxide BUN Creatinine Glucose POC Glucose 201 H Lactic Acid Calcium Iron TIBC Alkaline Phosphatase Ammonia Lactate Dehydrogenase C-Reactive Protein NT-Pro-B Natriuret Pep Total Protein Albumin Urine Creatinine 40.9 H Crossmatch 09/21/17 09/21/17 09/21/17 04:46 04:46 04:46 WBC RBC 3.28 L Hgb 9.1 L D Hct 27.8 L D MCH RDW 15.9 H Seg Neuts % (Manual) 20.0 L Lymphocytes % (Manual) 10.0 L Nucleated RBC % 6.0 H Seg Neutrophils # Man 1.7 L Lymphocytes # (Manual) 0.9 L POC ABG pH POC ABG pCO2 POC ABG pO2 VBG pH Sodium 153 H D Potassium 5.9 H Chloride 118.4 H Carbon Dioxide 9 L* BUN 94 H Creatinine 4.1 H Glucose 144 H POC Glucose Lactic Acid Calcium 8.3 L D Iron TIBC Alkaline Phosphatase Ammonia 116.0 H Lactate Dehydrogenase C-Reactive Protein NT-Pro-B Natriuret Pep Total Protein Albumin Urine Creatinine Crossmatch Chest x-ray: report reviewed Critical care time in (mins) excluding proc time.: 65 Critical care attestation.: If time is entered above; I have spent that time in minutes in the direct care of this critically ill patient, excluding procedure time.
[2017-09-21] MEDS ORDERED: VANCOMYCIN/NS 1 GM/250 ML 1 GM/250 ML BAG IV ONE ×2 (11:00→15:30)
--- NOTE | 2017-09-21 11:25 | Consultation ---
History of Present Illness - Reason for Consult Consult date: 09/21/17 acute renal failure, hyperkalemia, metabolic acidosis Requesting physician: MARCEL BLACKWOOD - History of Present Illness 82-year-old woman with a history of hypertension, COPD, chronic kidney disease, dementia was just discharged from the hospital returned with complaints of cough productive of yellow phlegm, lethargy, patient has been sleeping all day. Patient was discharged from the hospital 2 days ago . History is per the spouse at bedside, review of systems unobtainable Past History Past Medical History: COPD, heart failure, hypertension, renal failure, other ( dementia) Social history: full code (A.) Medications and Allergies Allergies Allergy/AdvReac Type Severity Reaction Status Date / Time No Known Allergies Allergy Verified 09/19/17 20:44 Home Medications Medication Instructions Recorded Confirmed Last Taken Type Ferrous Sulfate [Feosol] 325 mg PO QDAY 09/25/14 06/07/17 1 Day Ago History HYDROcodone/ACETAMINOPHEN 1 tab PO Q12H PRN 09/25/14 06/07/17 10/30/16 History [Hydrocodon-Acetaminophen 5-325] Levocetirizine Dihydrochloride 5 mg PO QHS 09/25/14 06/07/17 04/28/17 18:00 History [Xyzal] Montelukast [Singulair] 10 mg PO QDAY 09/25/14 06/07/17 04/29/17 10:00 History Diazepam 5 mg PO QHS 07/15/15 06/07/17 03/30/17 18:00 History Ascorbic Acid [Vitamin C] 500 mg PO QDAY 08/04/15 06/07/17 Unknown History Furosemide [Lasix TAB] 20 mg PO QDAY 08/04/15 06/07/17 Unknown History Donepezil [Aricept] 5 mg PO QHS #30 tablet 05/02/17 06/07/17 Unknown Rx Pantoprazole [Protonix INJ] 40 mg PO DIRECT #30 tab 05/02/17 06/07/17 Unknown Rx Tylenol /Codeine # 3 tab 30 mg PO BID #60 05/02/17 06/07/17 Unknown Rx Levofloxacin [Levaquin] 250 mg PO QDAY #5 tablet 06/10/17 Unknown Rx amLODIPine [Norvasc] 10 mg PO QDAY #30 tablet 06/10/17 Unknown Rx Active Meds: Active Medications Acetaminophen (Tylenol) 650 mg GA Q6H PRN PRN Reason: Pain, Mild (1-3) Last Admin: 09/20/17 15:45 Dose: 650 mg Albumin Human (Alburx 25% (Albumin)) 25 gm IV Q12HR ISSAC Albuterol/Ipratropium (Duoneb *Not For Prn Use*) 1 ampul IH Q6HRT ISSAC Last Admin: 09/21/17 08:00 Dose: 1 ampul Lipase/Protease/Amylase (Pancreaze Dr 10,500 Unit) 1 each FEEDTUBE PRN PRN PRN Reason: For Clogged Feeding Tube Bisacodyl (Dulcolax) 10 mg GA QDAY PRN PRN Reason: constipation unrelieved by MOM Last Admin: 09/20/17 17:45 Dose: 10 mg Dextrose (D50w (25gm) Vial) 50 gm IV PRN PRN PRN Reason: Hypoglycemia Last Admin: 09/21/17 00:30 Dose: 50 gm Heparin Sodium (Porcine) (Heparin) 5,000 unit SUB-Q Q12HR ISSAC Last Admin: 09/21/17 10:18 Dose: 5,000 unit Propofol (Diprivan 10 Mg/Ml) 1,000 mg in 100 mls @ 1.497 mls/hr IV TITR ISSAC; 5 MCG/KG/MIN PRN Reason: Protocol Last Titration: 09/21/17 07:52 Dose: 0 mcg/kg/min, 0 mls/hr Piperacillin Sod/Tazobactam Sod (Zosyn/Ns 2.25 Gm/50ml) 2.25 gm in 50 mls @ 100 mls/hr IV Q8HR ISSAC PRN Reason: Protocol Last Admin: 09/21/17 06:55 Dose: 100 mls/hr Vasopressin 20 unit/ Sodium (Chloride) 101 mls @ 9.09 mls/hr IV TITR ISSAC; 0.03 UNITS/MIN PRN Reason: Protocol Last Admin: 09/21/17 06:38 Dose: 0.03 units/min, 9.09 mls/hr Vancomycin HCl (Vancomycin/Ns 1 Gm/250 Ml) 1 gm in 250 mls @ 167.007 mls/hr IV ONCE ONE Stop: 09/21/17 12:29 Sodium Bicarbonate 150 meq/ (Dextrose) 1,150 mls @ 150 mls/hr IV DIRECT ISSAC Lactulose (Cephulac) 20 gm PO Q4H [facility] Last Admin: 09/21/17 10:04 Dose: 20 gm Methylprednisolone Sodium Succinate (Solu-Medrol) 40 mg IV Q12HR [facility] Last Admin: 09/21/17 10:04 Dose: 40 mg Morphine Sulfate (Morphine) 2 mg IV Q4H PRN PRN Reason: Pain, Moderate (4-6) Pantoprazole Sodium (Protonix) 40 mg IV QDAY [facility] Last Admin: 09/20/17 14:14 Dose: Not Given Simple Syrup (Simple Syrup) 15 ml FEEDTUBE PRN PRN PRN Reason: Hypoglycemia Simple Syrup (Simple Syrup) 30 ml FEEDTUBE PRN PRN PRN Reason: Hypoglycemia Sodium Bicarbonate (Sodium Bicarbonate) 325 mg FEEDTUBE PRN PRN PRN Reason: For Clogged Feeding Tube Sodium Chloride (Nacl 0.9% 500 Ml) 1 ml IV DIRECT ISSAC Sodium Polystyrene Sulfonate (Kionex) 30 gm PO ONCE ONE Stop: 09/21/17 11:17 Vancomycin HCl (Vancomycin Pharmacy To Dose) 1 each IV PKCONSULT ISSAC PRN Reason: Protocol Review of Systems ROS unobtainable: due to endotracheal tube, due to mental status Exam - Vital Signs Vital signs: Vital Signs Pulse BP Pulse Ox 113 H 111/63 99 09/19/17 20:00 09/19/17 20:00 09/19/17 20:00 - Physical Exam Narrative exam: GENERAL: unresponsive pt intubated HEENT: Normocephalic. Atraumatic. Extraocular motions are intact. Patient has moist mucous membranes. NECK: Supple. There is no adenopathy noted. CHEST/LUNGS: rhonhi becca. HEART/CARDIOVASCULAR: Regular. tachycardia. There is no gallop rub or murmur. ABDOMEN: Abdomen is soft, Patient has normal bowel sounds. There is no abdominal distention. SKIN: There is no rash. There is no edema. There is no diaphoresis. NEURO: Patient unresponsive, intubated and sedated MUSCULOSKELETAL: No obvious deformity noted Psychiatric could not be assessed Vascular system no lymphadenopathy distal pulses 2+ bilaterally Results - Lab Results 09/21/17 04:46 09/21/17 04:46 Most recent lab results Calcium 8.3 mg/dL (8.4-10.2) L D 09/21/17 04:46 Urine Creatinine 40.9 mg/dL (0.1-20.0) H 09/21/17 04:00 Urine Sodium 84 mEq/L 09/21/17 04:00 Assessment and Plan Impression: * Acute hypoxemic Respiratory failure * keyonna/ATN * metabolic acidosis * Sepsis * Likely aspiration pneumonia versus pneumonitis * Lactic acidosis with acidemia - likely secondary to severe sepsis * Altered mental status - unresponsiveness * Fever with leukocytosis * Severe anemia * Hyperkalemia Plan: * add bicarb gtt * treat k medically * strict i/o * iv albumin for bp support * vasopressors, keep MAP >65 * daily lytes * will need principal clerk typist for correction of acidosis and hyperkalemia if hemodynamically stable * avoid nephrotoxins * keyonna due to ATN and hypoperfusion * check abd ct--r/o bowel ischemia
[2017-09-21] MEDS ORDERED: CALCIUM GLUCONATE 1,000 MG in NACL 0.9% 100 ML IV ONE (12:30)
[2017-09-21] MEDS ORDERED: KIONEX PO ONE (13:00)
[2017-09-21] MEDS: SODIUM BICARBONATE 150 MEQ in D5W 1,000 ML IV SCH ×2 (13:00→21:24)
--- NOTE | 2017-09-21 13:25 | Event Note ---
Date: 09/21/17 Patient with a CODE BLUE at approximately 12:45 PM today. Patient reportedly developed bradycardia then PEA arrest. Patient was treated with appropriate medications per ACLS protocol. Patient also received 1 fibrillation/shock secondary to V. fib. Please see code note for details. Patient currently now has atrial fibrillation with intermittent RVR. I discussed the recent events with the caregiver. Cardiology consultation. The high probability of a clinically significant, sudden or life threatening deterioration of the [cardiopulmonary] system(s) required my full and direct attention, intervention and personal management. The aggregate critical care time was [31] minutes. This time is in addition to time spent performing reported procedures but includes the following: [x] Data Review and interpretation [x] Patient assessment and monitoring of vital signs [x] Documentation [x] Medication orders and management
[2017-09-21] MEDS ORDERED: ALBURX 25% (ALBUMIN) IV PRN (13:27)
[2017-09-21] MEDS ORDERED: PROCRIT IV PRN (13:27)
[2017-09-21] MEDS ORDERED: NACL 0.9% 100 ML IV PRN (13:27)
[2017-09-21] MEDS: LEVOPHED DRIP 4 MG/NS 250 ML 4 MG/250 ML BAG IV SCH ×3 (14:35→19:06)
--- NOTE | 2017-09-21 15:14 | Consultation ---
History of Present Illness Consult date: 09/21/17 Consult reason: atrial fibrillation History of present illness: This is an 82yr old female who is admitted with sepsis and acute respiratory failure thought secondary to aspiration pneumonitis. Noted with multiple metabolic abnormalities on presentation including severe anemia HCT of 19.9, renal failure and severe hyperkalemia of 6.7. She is currently in CCU intubated on mechanical ventilation. Today, it's reported the patient developed sinus bradycardia then suffered a PEA arrest. ACLS protocol was initiated. It's reported transient vfib/afib requiring defibrillation x 1 during the code blue. She is now in a sinus tachycardia post resuscitation. Cardiac consultation was requested. Past History Past Medical History: COPD, heart failure, hypertension, renal failure, other ( dementia) Social history: full code (A.) Medications and Allergies Allergies Allergy/AdvReac Type Severity Reaction Status Date / Time No Known Allergies Allergy Verified 09/19/17 20:44 Home Medications Medication Instructions Recorded Confirmed Last Taken Type Ferrous Sulfate [Feosol] 325 mg PO QDAY 09/25/14 06/07/17 1 Day Ago History HYDROcodone/ACETAMINOPHEN 1 tab PO Q12H PRN 09/25/14 06/07/17 10/30/16 History [Hydrocodon-Acetaminophen 5-325] Levocetirizine Dihydrochloride 5 mg PO QHS 09/25/14 06/07/17 04/28/17 18:00 History [Xyzal] Montelukast [Singulair] 10 mg PO QDAY 09/25/14 06/07/17 04/29/17 10:00 History Diazepam 5 mg PO QHS 07/15/15 06/07/17 03/30/17 18:00 History Ascorbic Acid [Vitamin C] 500 mg PO QDAY 08/04/15 06/07/17 Unknown History Furosemide [Lasix TAB] 20 mg PO QDAY 08/04/15 06/07/17 Unknown History Donepezil [Aricept] 5 mg PO QHS #30 tablet 05/02/17 06/07/17 Unknown Rx Pantoprazole [Protonix INJ] 40 mg PO DIRECT #30 tab 05/02/17 06/07/17 Unknown Rx Tylenol /Codeine # 3 tab 30 mg PO BID #60 05/02/17 06/07/17 Unknown Rx Levofloxacin [Levaquin] 250 mg PO QDAY #5 tablet 06/10/17 Unknown Rx amLODIPine [Norvasc] 10 mg PO QDAY #30 tablet 06/10/17 Unknown Rx Active Meds: Active Medications Acetaminophen (Tylenol) 650 mg W[place] Q6H PRN PRN Reason: Pain, Mild (1-3) Last Admin: 09/20/17 15:45 Dose: 650 mg Albumin Human (Alburx 25% (Albumin)) 25 gm IV Q12HR ISSAC Albumin Human (Alburx 25% (Albumin)) 25 gm IV ELMER PRN PRN Reason: Hypotension Albuterol/Ipratropium (Duoneb *Not For Prn Use*) 1 ampul IH Q6HRT ISSAC Last Admin: 09/21/17 14:52 Dose: 1 ampul Lipase/Protease/Amylase (Pancreaze Dr 10,500 Unit) 1 each FEEDTUBE PRN PRN PRN Reason: For Clogged Feeding Tube Bisacodyl (Dulcolax) 10 mg W[place] QDAY PRN PRN Reason: constipation unrelieved by MOM Last Admin: 09/20/17 17:45 Dose: 10 mg Dextrose (D50w (25gm) Vial) 50 gm IV PRN PRN PRN Reason: Hypoglycemia Last Admin: 09/21/17 00:30 Dose: 50 gm Epoetin Isidro (Procrit) 10,000 unit IV ELMER PRN PRN Reason: hemodialysis Heparin Sodium (Porcine) (Heparin) 5,000 unit SUB-Q Q12HR ISSAC Last Admin: 09/21/17 10:18 Dose: 5,000 unit Propofol (Diprivan 10 Mg/Ml) 1,000 mg in 100 mls @ 1.497 mls/hr IV TITR ISSAC; 5 MCG/KG/MIN PRN Reason: Protocol Last Titration: 09/21/17 07:52 Dose: 0 mcg/kg/min, 0 mls/hr Piperacillin Sod/Tazobactam Sod (Zosyn/Ns 2.25 Gm/50ml) 2.25 gm in 50 mls @ 100 mls/hr IV Q8HR ISSAC PRN Reason: Protocol Last Admin: 09/21/17 14:49 Dose: 100 mls/hr Vasopressin 20 unit/ Sodium (Chloride) 101 mls @ 9.09 mls/hr IV TITR ISSAC; 0.03 UNITS/MIN PRN Reason: Protocol Last Admin: 09/21/17 06:38 Dose: 0.03 units/min, 9.09 mls/hr Sodium Bicarbonate 150 meq/ (Dextrose) 1,150 mls @ 150 mls/hr IV DIRECT ISSAC Last Admin: 09/21/17 13:00 Dose: 150 mls/hr Sodium Chloride (Nacl 0.9%) 100 mls @ 999 mls/hr IV ELMER PRN PRN Reason: Hypotension Norepinephrine (Levophed Drip 4 Mg/Ns 250 Ml) 4 mg in 250 mls @ 7.5 mls/hr IV TITR ISSAC; 2 MCG/MIN PRN Reason: Protocol Last Titration: 09/21/17 14:41 Dose: 10 mcg/min, 37.5 mls/hr Lactulose (Cephulac) 20 gm PO Q4H [facility] Last Admin: 09/21/17 10:04 Dose: 20 gm Morphine Sulfate (Morphine) 2 mg IV Q4H PRN PRN Reason: Pain, Moderate (4-6) Pantoprazole Sodium (Protonix) 40 mg IV QDAY [facility] Last Admin: 09/20/17 14:14 Dose: Not Given Simple Syrup (Simple Syrup) 15 ml FEEDTUBE PRN PRN PRN Reason: Hypoglycemia Simple Syrup (Simple Syrup) 30 ml FEEDTUBE PRN PRN PRN Reason: Hypoglycemia Sodium Bicarbonate (Sodium Bicarbonate) 325 mg FEEDTUBE PRN PRN PRN Reason: For Clogged Feeding Tube Sodium Chloride (Nacl 0.9% 500 Ml) 1 ml IV DIRECT ISSAC Vancomycin HCl (Vancomycin Pharmacy To Dose) 1 each IV PKCONSULT ISSAC PRN Reason: Protocol Physical Examination Vital Signs Pulse BP Pulse Ox 113 H 111/63 99 09/19/17 20:00 09/19/17 20:00 09/19/17 20:00 Results 09/21/17 04:46 09/21/17 04:46 Cardiac Enzymes 09/20/17 Range/Units 15:40 Lactate Dehydrogenase 274 H (91-180) units/L CBC 09/21/17 Range/Units 04:46 WBC 8.5 (4.5-11.0) K/mm3 RBC 3.28 L (3.65-5.03) M/mm3 Hgb 9.1 L D (10.1-14.3) gm/dl Hct 27.8 L D (30.3-42.9) % Plt Count 148 (140-440) K/mm3 Comprehensive Metabolic Panel 09/21/17 Range/Units 04:46 Sodium 153 H D (137-145) mmol/L Potassium 5.9 H (3.6-5.0) mmol/L Chloride 118.4 H (98-107) mmol/L Carbon Dioxide 9 L* (22-30) mmol/L BUN 94 H (7-17) mg/dL Creatinine 4.1 H (0.7-1.2) mg/dL Glucose 144 H (65-100) mg/dL Calcium 8.3 L D (8.4-10.2) mg/dL Assessment and Plan Acute respiratory failure Sepsis Hyperkalemia Acute on chronic renal failure Lactic acidosis Severe anemia requiring blood transfusion PEA arrest with reports of transient vfib/afib requiring defibrillation We will get an echocardiogram for further cardiac evaluation.
--- NOTE | 2017-09-21 15:40 | Operative Report ---
Operative Report Operative Report: EXAM: ULTRASOUND-GUIDED PLACEMENT OF VAS-CATH CLINICAL INDICATION: PATIENT WITH SEPSIS AND END-STAGE RENAL DISEASE REQUIRING ACCESS FOR HEMODIALYSIS DATE: 09/21/2017 PROCEDURE: Following an explanation of the risks, benefits and alternatives; written informed consent was obtained from the patient's next of kin/caregiver. The procedure was performed at bedside in the ICU. Initial ultrasound evaluation of the patient's right groin demonstrated a patent right common femoral vein. The patient's right groin was prepped and draped in the usual sterile fashion. 1% lidocaine was used for anesthesia. Under ultrasound guidance, the right common femoral vein was cannulated with a 7 cm 18-gauge needle. A 0.035 wire advanced centrally easily. The needle was removed and following serial dilation, a 30 cm 3 port dialysis catheter was advanced over the guidewire centrally. The guidewire was removed. All 3 ports returned nonpulsatile blood. The catheter was flushed with sterile saline and securely fasten the skin surface using 3-0 nylon suture. A sterile dressing was then applied. The patient tolerated the procedure well. There were no immediate post procedure complications. IMPRESSION: 1) Ultrasound guided placement of 30 cm 3 port dialysis catheter via the right common femoral vein.
[2017-09-21] MEDS: ALBURX 25% (ALBUMIN) IV SCH ×2 (15:50→23:19)
[2017-09-21 17:30] LABS: ISTAT Base Excess -26; ISTAT HCO3 5.6; ISTAT PCO2 22.1 (35-45); ISTAT PO2 473 (80-105); ISTAT SO2 100; ISTAT TCO2 6
[2017-09-21] MEDS: PROTONIX IV SCH (18:42)
[2017-09-21] MEDS ORDERED: HEPARIN IV PRN (19:40)
[2017-09-21] MEDS: LEVOPHED 8 MG in NACL 0.9% 250ML 242 ML IV SCH (21:22)
--- NOTE | 2017-09-21 22:47 | Consultation ---
History of Present Illness - Reason for Consult Consult date: 09/21/17 anemia. Requesting physician: MARCEL BLACKWOOD - History of Present Illness Thank you for this consult, patient seen/examined, record reviewed. Kindly asked to see for reasons of anemia. Patient with multiple medical problems. Labs shows NCHCA.Please see w/up. 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 Past History Past Medical History: COPD, heart failure, hypertension, renal failure, other ( dementia) Social history: full code (A.) Medications and Allergies Allergies Allergy/AdvReac Type Severity Reaction Status Date / Time No Known Allergies Allergy Verified 09/19/17 20:44 Home Medications Medication Instructions Recorded Confirmed Last Taken Type Ferrous Sulfate [Feosol] 325 mg PO QDAY 09/25/14 06/07/17 1 Day Ago History HYDROcodone/ACETAMINOPHEN 1 tab PO Q12H PRN 09/25/14 06/07/17 10/30/16 History [Hydrocodon-Acetaminophen 5-325] Levocetirizine Dihydrochloride 5 mg PO QHS 09/25/14 06/07/17 04/28/17 18:00 History [Xyzal] Montelukast [Singulair] 10 mg PO QDAY 09/25/14 06/07/17 04/29/17 10:00 History Diazepam 5 mg PO QHS 07/15/15 06/07/17 03/30/17 18:00 History Ascorbic Acid [Vitamin C] 500 mg PO QDAY 08/04/15 06/07/17 Unknown History Furosemide [Lasix TAB] 20 mg PO QDAY 08/04/15 06/07/17 Unknown History Donepezil [Aricept] 5 mg PO QHS #30 tablet 05/02/17 06/07/17 Unknown Rx Pantoprazole [Protonix INJ] 40 mg PO DIRECT #30 tab 05/02/17 06/07/17 Unknown Rx Tylenol /Codeine # 3 tab 30 mg PO BID #60 05/02/17 06/07/17 Unknown Rx Levofloxacin [Levaquin] 250 mg PO QDAY #5 tablet 06/10/17 Unknown Rx amLODIPine [Norvasc] 10 mg PO QDAY #30 tablet 06/10/17 Unknown Rx Active Meds: Active Medications Acetaminophen (Tylenol) 650 mg [place] Q6H PRN PRN Reason: Pain, Mild (1-3) Last Admin: 09/20/17 15:45 Dose: 650 mg Albumin Human (Alburx 25% (Albumin)) 25 gm IV Q12HR ISSAC Last Admin: 09/21/17 15:50 Dose: 25 gm Albumin Human (Alburx 25% (Albumin)) 25 gm IV ELMER PRN PRN Reason: Hypotension Last Admin: 09/21/17 18:41 Dose: 25 gm Albuterol/Ipratropium (Duoneb *Not For Prn Use*) 1 ampul IH Q6HRT ISSAC Last Admin: 09/21/17 19:52 Dose: 1 ampul Lipase/Protease/Amylase (Pancreaze Dr 10,500 Unit) 1 each FEEDTUBE PRN PRN PRN Reason: For Clogged Feeding Tube Bisacodyl (Dulcolax) 10 mg [place] QDAY PRN PRN Reason: constipation unrelieved by MOM Last Admin: 09/20/17 17:45 Dose: 10 mg Dextrose (D50w (25gm) Vial) 50 gm IV PRN PRN PRN Reason: Hypoglycemia Last Admin: 09/21/17 00:30 Dose: 50 gm Epoetin Isidro (Procrit) 10,000 unit IV ELMER PRN PRN Reason: hemodialysis Heparin Sodium (Porcine) (Heparin) 5,000 unit SUB-Q Q12HR ISSAC Last Admin: 09/21/17 10:18 Dose: 5,000 unit Heparin Sodium (Porcine) (Heparin) 5,000 unit IV ELMER PRN PRN Reason: 5000 each dwell Propofol (Diprivan 10 Mg/Ml) 1,000 mg in 100 mls @ 1.497 mls/hr IV TITR ISSAC; 5 MCG/KG/MIN PRN Reason: Protocol Last Titration: 09/21/17 07:52 Dose: 0 mcg/kg/min, 0 mls/hr Piperacillin Sod/Tazobactam Sod (Zosyn/Ns 2.25 Gm/50ml) 2.25 gm in 50 mls @ 100 mls/hr IV Q8HR ISSAC PRN Reason: Protocol Last Admin: 09/21/17 14:49 Dose: 100 mls/hr Vasopressin 20 unit/ Sodium (Chloride) 101 mls @ 9.09 mls/hr IV TITR ISSAC; 0.03 UNITS/MIN PRN Reason: Protocol Last Titration: 09/21/17 15:00 Dose: 0 units/min, 0 mls/hr Sodium Bicarbonate 150 meq/ (Dextrose) 1,150 mls @ 150 mls/hr IV DIRECT ISSAC Last Admin: 09/21/17 21:24 Dose: 150 mls/hr Sodium Chloride (Nacl 0.9%) 100 mls @ 999 mls/hr IV ELMER PRN PRN Reason: Hypotension Norepinephrine 8 mg/ Sodium (Chloride) 250 mls @ 3.75 mls/hr IV TITR ISSAC; 2 MCG /MIN PRN Reason: Protocol Last Admin: 09/21/17 21:22 Dose: 30 mcg/min, 56.25 mls/hr Lactulose (Cephulac) 20 gm PO Q4H ISSAC Last Admin: 09/21/17 18:45 Dose: 20 gm Morphine Sulfate (Morphine) 2 mg IV Q4H PRN PRN Reason: Pain, Moderate (4-6) Pantoprazole Sodium (Protonix) 40 mg IV QDAY ISSAC Last Admin: 09/21/17 18:42 Dose: 40 mg Simple Syrup (Simple Syrup) 15 ml FEEDTUBE PRN PRN PRN Reason: Hypoglycemia Simple Syrup (Simple Syrup) 30 ml FEEDTUBE PRN PRN PRN Reason: Hypoglycemia Sodium Bicarbonate (Sodium Bicarbonate) 325 mg FEEDTUBE PRN PRN PRN Reason: For Clogged Feeding Tube Sodium Chloride (Nacl 0.9% 500 Ml) 1 ml IV DIRECT ISSAC Vancomycin HCl (Vancomycin Pharmacy To Dose) 1 each IV PKCONSULT ISSAC PRN Reason: Protocol Review of Systems Constitutional: fatigue, weakness Exam - Constitutional Vitals: Temp Pulse Resp BP Pulse Ox 96.9 F L 116 H 30 H 72/35 96 09/21/17 22:40 09/21/17 21:23 09/21/17 21:00 09/21/17 21:23 09/21/17 20:00 General appearance: Present: mild distress - EENT Eyes: Present: PERRL ENT: clear oral mucosa - Neck Neck: Present: supple, normal ROM - Respiratory Respiratory: bilateral: diminished - Cardiovascular Heart Sounds: Present: S1 & S2. Absent: rub, click - Extremities Extremities: pulses symmetrical, No edema Peripheral Pulses: within normal limits - Abdominal General gastrointestinal: Present: soft, non-tender, non-distended, normal bowel sounds Female genitourinary: Present: deferred - Rectal Rectal Exam: deferred - Integumentary Integumentary: Present: clear, warm, dry - Musculoskeletal Musculoskeletal: gait normal, strength equal bilaterally - Neurologic Neurologic: moves all extremities Results - Labs CBC & Chem 7: 09/21/17 04:46 09/21/17 04:46 Labs: Abnormal lab results 09/20/17 09/21/17 09/21/17 Range/Units 23:54 04:00 04:04 RBC (3.65-5.03) M/mm3 Hgb (10.1-14.3) gm/dl Hct (30.3-42.9) % RDW (13.2-15.2) % Seg Neuts % (Manual) (40.0-70.0) % Lymphocytes % (Manual) (13.4-35.0) % Nucleated RBC % (0.0-0.9) % Seg Neutrophils # Man (1.8-7.7) K/mm3 Lymphocytes # (Manual) (1.2-5.4) K/mm3 POC ABG pH (7.35-7.45) POC ABG pCO2 (35-45) POC ABG pO2 (80-105) Sodium (137-145) mmol/L Potassium (3.6-5.0) mmol/L Chloride (98-107) mmol/L Carbon Dioxide (22-30) mmol/L BUN (7-17) mg/dL Creatinine (0.7-1.2) mg/dL Glucose (65-100) mg/dL POC Glucose 67 L 201 H (70-105) Lactic Acid (0.7-2.0) mmol/L Calcium (8.4-10.2) mg/dL Ammonia (25-60) umol/L Urine Creatinine 40.9 H (0.1-20.0) mg/dL 09/21/17 09/21/17 09/21/17 Range/Units 04:38 04:46 04:46 RBC 3.28 L (3.65-5.03) M/mm3 Hgb 9.1 L D (10.1-14.3) gm/dl Hct 27.8 L D (30.3-42.9) % RDW 15.9 H (13.2-15.2) % Seg Neuts % (Manual) 20.0 L (40.0-70.0) % Lymphocytes % (Manual) 10.0 L (13.4-35.0) % Nucleated RBC % 6.0 H (0.0-0.9) % Seg Neutrophils # Man 1.7 L (1.8-7.7) K/mm3 Lymphocytes # (Manual) 0.9 L (1.2-5.4) K/mm3 POC ABG pH 7.178 L (7.35-7.45) POC ABG pCO2 21.6 L (35-45) POC ABG pO2 143 H (80-105) Sodium 153 H D (137-145) mmol/L Potassium 5.9 H (3.6-5.0) mmol/L Chloride 118.4 H (98-107) mmol/L Carbon Dioxide 9 L* (22-30) mmol/L BUN 94 H (7-17) mg/dL Creatinine 4.1 H (0.7-1.2) mg/dL Glucose 144 H (65-100) mg/dL POC Glucose (70-105) Lactic Acid (0.7-2.0) mmol/L Calcium 8.3 L D (8.4-10.2) mg/dL Ammonia (25-60) umol/L Urine Creatinine (0.1-20.0) mg/dL 09/21/17 09/21/17 09/21/17 Range/Units 04:46 16:15 17:16 RBC (3.65-5.03) M/mm3 Hgb (10.1-14.3) gm/dl Hct (30.3-42.9) % RDW (13.2-15.2) % Seg Neuts % (Manual) (40.0-70.0) % Lymphocytes % (Manual) (13.4-35.0) % Nucleated RBC % (0.0-0.9) % Seg Neutrophils # Man (1.8-7.7) K/mm3 Lymphocytes # (Manual) (1.2-5.4) K/mm3 POC ABG pH 7.010 L (7.35-7.45) POC ABG pCO2 22.1 L (35-45) POC ABG pO2 473 H (80-105) Sodium (137-145) mmol/L Potassium (3.6-5.0) mmol/L Chloride (98-107) mmol/L Carbon Dioxide (22-30) mmol/L BUN (7-17) mg/dL Creatinine (0.7-1.2) mg/dL Glucose (65-100) mg/dL POC Glucose (70-105) Lactic Acid 15.20 H* (0.7-2.0) mmol/L Calcium (8.4-10.2) mg/dL Ammonia 116.0 H (25-60) umol/L Urine Creatinine (0.1-20.0) mg/dL Assessment and Plan - Patient Problems (1) Renal failure Current Visit: Yes Status: Acute Qualifiers: Renal failure chronicity: R Acute renal failure type: A Chronic kidney disease stage: C Plan to address problem: follow renal. (2) Anemia Current Visit: Yes Status: Acute Qualifiers: Anemia type: A Iron deficiency anemia type: I Vitamin B12 deficiency anemia type: V Folate deficiency anemia type: F Bone marrow failure anemia type: B Hemolytic anemia type: H Other causes of anemia: chronic disease, other Chronic kidney disease stage: C Qualified Code(s): D63.8 - Anemia in other chronic diseases classified elsewhere Plan to address problem: SEE w/up labs ordered., supportive care.
[2017-09-22] MEDS: CEPHULAC PO SCH ×6 (02:00→17:59)
[2017-09-22] MEDS: DUONEB *Not for PRN Use IH SCH ×4 (02:43→19:56)
[2017-09-22 04:32] LABS: Hematocrit 23.3 % (30.3-42.9); Hemoglobin 7.9 gm/dl (10.1-14.3); Mean Corpuscular HGB Conc 34 % (30-34); Mean Corpuscular Hemoglobin 28 pg (28-32); Mean Corpuscular Volume 83 fl (79-97); Platelet Count 116 K/mm3 (140-440); Red Blood Count 2.82 M/mm3 (3.65-5.03); Red Cell Distribution Width 16.9 % (13.2-15.2); White Blood Count 9.3 K/mm3 (4.5-11.0)
[2017-09-22] MEDS: SODIUM BICARBONATE 150 MEQ in D5W 1,000 ML IV SCH (04:47)
[2017-09-22] MEDS: LEVOPHED 8 MG in NACL 0.9% 250ML 242 ML IV SCH ×2 (04:48→10:59)
[2017-09-22 05:01] LABS: Albumin 3.3 g/dL (3.9-5); Albumin/Globulin Ratio 1.6 %; Bilirubin,Total 0.8 mg/dL (0.1-1.2); Calcium 7.5 mg/dL (8.4-10.2); Chloride 101.7 mmol/L (98-107); Potassium 5.5 mmol/L (3.6-5.0); Total Protein 5.4 g/dL (6.3-8.2)
[2017-09-22] MEDS: ZOSYN/NS 2.25 GM/50ML 2.25 GM/50 ML BAG IV SCH (05:14)
[2017-09-22 05:19] LABS: Erythrocyte Sedimentation Rate 47 mm/Hr (0-20)
[2017-09-22 05:33] LABS: Basophils % (Manual) 0 % (0.0-1.8); Blastocytes % (Manual) 0 %; Eosinophils % (Manual) 0 % (0.0-4.3)
[2017-09-22 05:34] LABS: Crenated RBC Few; Diff Status Complete; Platelet Estimate Appears Decreased
[2017-09-22 06:04] LABS: Bacteria,Urine 1+ /HPF (Negative); Bilirubin,Urine NEG (Negative); Blood,Urine SM (Negative); Ketones,Urine NEG (Negative); Leukocyte Esterase,Urine LG (Negative); Nitrite,Urine NEG (Negative); Protein,Urine <15 mg/dL mg/dL (Negative); Urobilinogen,Urine < 2.0 mg/dL (<2.0)
[2017-09-22 06:34] LABS: ISTAT Base Excess -7; ISTAT HCO3 15.9; ISTAT PH 7.529 (7.35-7.45); ISTAT PO2 160 (80-105); ISTAT SO2 100; ISTAT TCO2 16
--- NOTE | 2017-09-22 08:04 | XRay Report ---
CHEST 1 VIEW INDICATION: Respiratory failure. COMPARISON: Yesterday. FINDINGS: Portable, frontal chest radiograph, 2:04 AM, 09/22/2017 reveals stable cardiomediastinal silhouette, supporting devices, appearance of the lungs and osseous structures, providing for the difference in technique. CONCLUSION: No acute chest process or significant interval change. Thank you for the opportunity to participate in this patient's care.
[2017-09-22] MEDS ORDERED: ADRENALIN ONE (09:39)
[2017-09-22] MEDS ORDERED: CALCIUM CHLORIDE IV ONE (09:39)
--- NOTE | 2017-09-22 09:57 | Progress Note ---
Assessment and Plan Impression: * Acute hypoxemic Respiratory failure * keyonna/ATN * metabolic acidosis * Sepsis * Likely aspiration pneumonia versus pneumonitis * Lactic acidosis with acidemia - likely secondary to severe sepsis * Altered mental status - unresponsiveness * Fever with leukocytosis * Severe anemia * Hyperkalemia Plan: * added bicarb gtt * treat k medically * strict i/o * iv albumin for bp support * vasopressors, keep MAP >65 * daily lytes * attemptecHD for correction of acidosis and hyperkalemia was not hemodynamically stable * avoid nephrotoxins * plans for withdrawal of care noted * keyonna due to ATN and hypoperfusion * check abd ct--r/o bowel ischemia Subjective Date of service: 09/22/17 Principal diagnosis: keyonna Interval history: resting in bed today Objective - Exam Narrative Exam: GENERAL: unresponsive pt intubated HEENT: Normocephalic. Atraumatic. Extraocular motions are intact. Patient has moist mucous membranes. NECK: Supple. There is no adenopathy noted. CHEST/LUNGS: rhonhi becca. HEART/CARDIOVASCULAR: Regular. tachycardia. There is no gallop rub or murmur. ABDOMEN: Abdomen is soft, Patient has normal bowel sounds. There is no abdominal distention. SKIN: There is no rash. There is no edema. There is no diaphoresis. NEURO: Patient unresponsive, intubated and sedated MUSCULOSKELETAL: No obvious deformity noted Psychiatric could not be assessed Vascular system no lymphadenopathy distal pulses 2+ bilaterally - Vital Signs Vital signs: Vital Signs - 12hr 09/21/17 09/21/17 09/21/17 22:00 22:15 22:30 Temperature Pulse Rate 102 H 113 H 112 H Pulse Rate [ Anterior Bilateral Throughout] Respiratory 30 H 30 H 30 H Rate Respiratory Rate [Anterior Bilateral Throughout] Blood Pressure 108/67 116/65 109/67 O2 Sat by Pulse Oximetry 09/21/17 09/21/17 09/21/17 22:40 22:45 23:00 Temperature 96.9 F L Pulse Rate 115 H 112 H Pulse Rate [ Anterior Bilateral Throughout] Respiratory 30 H 30 H Rate Respiratory Rate [Anterior Bilateral Throughout] Blood Pressure 108/61 117/59 O2 Sat by Pulse Oximetry 09/21/17 09/21/17 09/21/17 23:13 23:15 23:30 Temperature Pulse Rate 113 H 112 H 111 H Pulse Rate [ Anterior Bilateral Throughout] Respiratory 30 H 30 H Rate Respiratory Rate [Anterior Bilateral Throughout] Blood Pressure 112/62 112/62 107/67 O2 Sat by Pulse 92 Oximetry 09/21/17 09/22/17 09/22/17 23:45 00:00 00:15 Temperature Pulse Rate 109 H 111 H 109 H Pulse Rate [ Anterior Bilateral Throughout] Respiratory 30 H 30 H 30 H Rate Respiratory Rate [Anterior Bilateral Throughout] Blood Pressure 113/70 114/63 108/62 O2 Sat by Pulse 96 Oximetry 09/22/17 09/22/17 09/22/17 00:30 00:45 01:00 Temperature Pulse Rate 110 H 108 H 112 H Pulse Rate [ Anterior Bilateral Throughout] Respiratory 30 H 30 H 30 H Rate Respiratory Rate [Anterior Bilateral Throughout] Blood Pressure 110/63 109/62 110/61 O2 Sat by Pulse Oximetry 09/22/17 09/22/17 09/22/17 01:15 01:30 01:45 Temperature Pulse Rate 111 H 112 H 112 H Pulse Rate [ Anterior Bilateral Throughout] Respiratory 30 H 30 H 30 H Rate Respiratory Rate [Anterior Bilateral Throughout] Blood Pressure 110/62 110/62 113/62 O2 Sat by Pulse Oximetry 09/22/17 09/22/17 09/22/17 02:00 02:15 02:30 Temperature Pulse Rate 105 H 113 H 113 H Pulse Rate [ Anterior Bilateral Throughout] Respiratory 30 H 30 H 30 H Rate Respiratory Rate [Anterior Bilateral Throughout] Blood Pressure 106/52 114/63 122/66 O2 Sat by Pulse 93 Oximetry 09/22/17 09/22/17 09/22/17 02:44 02:45 03:00 Temperature Pulse Rate 117 H 115 H Pulse Rate [ 113 H 112 H Anterior Bilateral Throughout] Respiratory 30 H 30 H Rate Respiratory 30 H 24 Rate [Anterior Bilateral Throughout] Blood Pressure 122/63 126/73 O2 Sat by Pulse Oximetry 09/22/17 09/22/17 09/22/17 03:15 03:17 03:30 Temperature 97.5 F L Pulse Rate 121 H 119 H Pulse Rate [ Anterior Bilateral Throughout] Respiratory 30 H 30 H Rate Respiratory Rate [Anterior Bilateral Throughout] Blood Pressure 118/62 109/64 O2 Sat by Pulse Oximetry 09/22/17 09/22/17 09/22/17 03:45 04:00 04:15 Temperature Pulse Rate 120 H 121 H 121 H Pulse Rate [ Anterior Bilateral Throughout] Respiratory 30 H 30 H 30 H Rate Respiratory Rate [Anterior Bilateral Throughout] Blood Pressure 119/64 104/58 116/56 O2 Sat by Pulse Oximetry 09/22/17 09/22/17 09/22/17 04:30 04:44 04:45 Temperature Pulse Rate 120 H 109 H 119 H Pulse Rate [ Anterior Bilateral Throughout] Respiratory 30 H 30 H Rate Respiratory Rate [Anterior Bilateral Throughout] Blood Pressure 113/56 108/62 121/60 O2 Sat by Pulse 94 Oximetry 09/22/17 09/22/17 09/22/17 05:00 05:15 05:30 Temperature Pulse Rate 119 H 118 H 113 H Pulse Rate [ Anterior Bilateral Throughout] Respiratory 30 H 30 H 30 H Rate Respiratory Rate [Anterior Bilateral Throughout] Blood Pressure 109/66 110/56 107/50 O2 Sat by Pulse 82 L 83 L Oximetry 09/22/17 09/22/17 09/22/17 05:45 06:00 06:16 Temperature Pulse Rate 115 H 115 H 115 H Pulse Rate [ Anterior Bilateral Throughout] Respiratory 30 H 30 H 30 H Rate Respiratory Rate [Anterior Bilateral Throughout] Blood Pressure 111/47 110/60 81/39 O2 Sat by Pulse Oximetry 09/22/17 09/22/17 09/22/17 06:30 06:45 07:00 Temperature Pulse Rate 116 H 121 H 114 H Pulse Rate [ Anterior Bilateral Throughout] Respiratory 30 H 30 H 30 H Rate Respiratory Rate [Anterior Bilateral Throughout] Blood Pressure 117/66 124/71 112/63 O2 Sat by Pulse 80 L Oximetry 09/22/17 08:00 Temperature 97.4 F L Pulse Rate Pulse Rate [ Anterior Bilateral Throughout] Respiratory Rate Respiratory Rate [Anterior Bilateral Throughout] Blood Pressure O2 Sat by Pulse Oximetry - Lab 09/22/17 03:56 09/22/17 03:56 Most recent lab results Calcium 7.5 mg/dL (8.4-10.2) L 09/22/17 03:56 Urine Creatinine 40.9 mg/dL (0.1-20.0) H 09/21/17 04:00 Urine Sodium 84 mEq/L 09/21/17 04:00
--- NOTE | 2017-09-22 10:52 | Progress Note ---
Assessment and Plan - Patient Problems (1) Septic shock Current Visit: Yes Status: Acute Plan to address problem: Place central venous access for vasopressors Start norepinephrine for MAP>65 Volume resuscitation- use soduim bacarbonate in D5W Accurate monitoring of urine output Hold off abdominal/pelvic CT scan with oral contrast, until family decides on care goals...possibility of ischemic colitis or intraabdominal source for sepsis. VTE and stress ulcer prophylaxis (2) Acute respiratory failure with hypoxemia Current Visit: Yes Status: Acute Plan to address problem: Continue with MVS Lung protective strategies, adjust tidal volume Daily SBT and SAT as tolerated Analgesia and agitation management Avoid benzodiazepines Early mobility VTE and stress ulcer prophylaxis Hold off on enteric nutrition until the bowel is evaluated radiographically Accucheck with glycemic control HOB>40, aspiration precautions (3) Lactic acidosis Current Visit: Yes Status: Acute Plan to address problem: Severe, r/o ischemic colitis. monitor closely (4) Altered mental status Current Visit: Yes Status: Acute Qualifiers: Altered mental status type: A Coma depth: C Coma timing: C Plan to address problem: Part of the sepsis syndrome Avoid mood altering medications for now. Currently on lactulose per primary service for hyper ammonia (5) Do not intubate, cardiopulmonary resuscitation (CPR)-only code status Current Visit: Yes Status: Acute Plan to address problem: Extensive discussions with the family at the bedside. Do not want any CPR or defibrillation in the event of cardiac arrest. Discussing the possibility of withdrawal of care Subjective Date of service: 09/22/17 Principal diagnosis: keyonna Interval history: Seen and examined. Vitals, labs, medications, chart reviewed. Admitted and intubated for encephalopathy associated with septic shock. Has developed acute renal failure, oliguric, on going severe anion gap metabolic acidosis Unable to tolerate HD yesterday. 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 The states he does not want any further resuscitative effort-CPR, defibrillations, or chest compressions. He is now discussing with his children/family members about withdrawal of care Discussed on interdisciplinary rounds. Currently on vasopressin infusion, with MAP of 75. Vanc and Zosyn ABG pH 7.52/19/160/15.9 Vent AC-VC 30/500/5/30% Objective - Exam Narrative Exam: GENERAL: unresponsive pt intubated ET to vent, no dys-synchrony HEENT: Normocephalic. Atraumatic. NECK: Supple. There is no adenopathy noted. CHEST/LUNGS: rhonhi becca. HEART/CARDIOVASCULAR: Irregular, tachycardia. There is no gallop rub or murmur. ABDOMEN: Abdomen is firm, distended, Patient has no bowel sounds. Left femoral trialysis catheter..NGT with ouotput of 750 ml. Bladder pressure 15 SKIN: There is no rash. Left upper extremity edema NEURO: Patient unresponsive, intubated and sedated MUSCULOSKELETAL: No obvious deformity noted Psychiatric could not be assessed Vascular system no lymphadenopathy distal pulses 2+ bilaterally Vital Signs - 12hr 09/21/17 09/21/17 09/21/17 23:00 23:13 23:15 Temperature Pulse Rate 112 H 113 H 112 H Pulse Rate [ Anterior Bilateral Throughout] Respiratory 30 H 30 H Rate Respiratory Rate [Anterior Bilateral Throughout] Blood Pressure 117/59 112/62 112/62 O2 Sat by Pulse 92 Oximetry 09/21/17 09/21/17 09/22/17 23:30 23:45 00:00 Temperature Pulse Rate 111 H 109 H 111 H Pulse Rate [ Anterior Bilateral Throughout] Respiratory 30 H 30 H 30 H Rate Respiratory Rate [Anterior Bilateral Throughout] Blood Pressure 107/67 113/70 114/63 O2 Sat by Pulse 96 Oximetry 09/22/17 09/22/17 09/22/17 00:15 00:30 00:45 Temperature Pulse Rate 109 H 110 H 108 H Pulse Rate [ Anterior Bilateral Throughout] Respiratory 30 H 30 H 30 H Rate Respiratory Rate [Anterior Bilateral Throughout] Blood Pressure 108/62 110/63 109/62 O2 Sat by Pulse Oximetry 09/22/17 09/22/17 09/22/17 01:00 01:15 01:30 Temperature Pulse Rate 112 H 111 H 112 H Pulse Rate [ Anterior Bilateral Throughout] Respiratory 30 H 30 H 30 H Rate Respiratory Rate [Anterior Bilateral Throughout] Blood Pressure 110/61 110/62 110/62 O2 Sat by Pulse Oximetry 09/22/17 09/22/17 09/22/17 01:45 02:00 02:15 Temperature Pulse Rate 112 H 105 H 113 H Pulse Rate [ Anterior Bilateral Throughout] Respiratory 30 H 30 H 30 H Rate Respiratory Rate [Anterior Bilateral Throughout] Blood Pressure 113/62 106/52 114/63 O2 Sat by Pulse Oximetry 09/22/17 09/22/17 09/22/17 02:30 02:44 02:45 Temperature Pulse Rate 113 H 117 H Pulse Rate [ 113 H Anterior Bilateral Throughout] Respiratory 30 H 30 H Rate Respiratory 30 H Rate [Anterior Bilateral Throughout] Blood Pressure 122/66 122/63 O2 Sat by Pulse 93 Oximetry 09/22/17 09/22/17 09/22/17 03:00 03:15 03:17 Temperature 97.5 F L Pulse Rate 115 H 121 H Pulse Rate [ 112 H Anterior Bilateral Throughout] Respiratory 30 H 30 H Rate Respiratory 24 Rate [Anterior Bilateral Throughout] Blood Pressure 126/73 118/62 O2 Sat by Pulse Oximetry 09/22/17 09/22/17 09/22/17 03:30 03:45 04:00 Temperature Pulse Rate 119 H 120 H 121 H Pulse Rate [ Anterior Bilateral Throughout] Respiratory 30 H 30 H 30 H Rate Respiratory Rate [Anterior Bilateral Throughout] Blood Pressure 109/64 119/64 104/58 O2 Sat by Pulse Oximetry 09/22/17 09/22/17 09/22/17 04:15 04:30 04:44 Temperature Pulse Rate 121 H 120 H 109 H Pulse Rate [ Anterior Bilateral Throughout] Respiratory 30 H 30 H Rate Respiratory Rate [Anterior Bilateral Throughout] Blood Pressure 116/56 113/56 108/62 O2 Sat by Pulse 94 Oximetry 09/22/17 09/22/17 09/22/17 04:45 05:00 05:15 Temperature Pulse Rate 119 H 119 H 118 H Pulse Rate [ Anterior Bilateral Throughout] Respiratory 30 H 30 H 30 H Rate Respiratory Rate [Anterior Bilateral Throughout] Blood Pressure 121/60 109/66 110/56 O2 Sat by Pulse 82 L Oximetry 09/22/17 09/22/17 09/22/17 05:30 05:45 06:00 Temperature Pulse Rate 113 H 115 H 115 H Pulse Rate [ Anterior Bilateral Throughout] Respiratory 30 H 30 H 30 H Rate Respiratory Rate [Anterior Bilateral Throughout] Blood Pressure 107/50 111/47 110/60 O2 Sat by Pulse 83 L Oximetry 09/22/17 09/22/17 09/22/17 06:16 06:30 06:45 Temperature Pulse Rate 115 H 116 H 121 H Pulse Rate [ Anterior Bilateral Throughout] Respiratory 30 H 30 H 30 H Rate Respiratory Rate [Anterior Bilateral Throughout] Blood Pressure 81/39 117/66 124/71 O2 Sat by Pulse 80 L Oximetry 09/22/17 09/22/17 09/22/17 07:00 08:00 10:35 Temperature 97.4 F L Pulse Rate 114 H 114 H Pulse Rate [ Anterior Bilateral Throughout] Respiratory 30 H Rate Respiratory Rate [Anterior Bilateral Throughout] Blood Pressure 112/63 116/57 O2 Sat by Pulse Oximetry CBC and BMP: 09/22/17 03:56 09/22/17 03:56 ABG, PT/INR, D-dimer: ABG POC ABG pH 7.529 (7.35-7.45) H 09/22/17 06:27 POC ABG pCO2 19.0 (35-45) L 09/22/17 06:27 POC ABG pO2 160 (80-105) H 09/22/17 06:27 POC ABG HCO3 15.9 09/22/17 06:27 POC ABG Total CO2 16 09/22/17 06:27 POC ABG O2 Sat 100 09/22/17 06:27 PT/INR, D-dimer PT 14.3 Sec. (12.2-14.9) 09/19/17 21:41 INR 1.06 (0.87-1.13) 09/19/17 21:41 D-Dimer 617.22 ng/mlDDU (0-234) H 09/19/17 21:41 Abnormal lab findings: Abnormal Labs 09/20/17 09/20/17 09/20/17 00:28 00:30 00:30 WBC 19.9 H RBC 2.30 L Hgb 5.9 L* Hct 19.9 L* MCH 26 L RDW 16.4 H Plt Count Seg Neuts % (Manual) 84.0 H Lymphocytes % (Manual) 3.0 L Nucleated RBC % Seg Neutrophils # Man 16.7 H Lymphocytes # (Manual) 0.6 L POC ABG pH 7.222 L POC ABG pCO2 32.9 L POC ABG pO2 186 H VBG pH 7.158 L* Sodium Potassium Chloride Carbon Dioxide BUN Creatinine Glucose POC Glucose Lactic Acid Calcium Iron TIBC AST ALT Alkaline Phosphatase Ammonia Lactate Dehydrogenase C-Reactive Protein NT-Pro-B Natriuret Pep Total Protein Albumin Urine WBC (Auto) Urine Creatinine Crossmatch 09/20/17 09/20/17 09/20/17 00:30 00:30 00:30 WBC RBC Hgb Hct MCH RDW Plt Count Seg Neuts % (Manual) Lymphocytes % (Manual) Nucleated RBC % Seg Neutrophils # Man Lymphocytes # (Manual) POC ABG pH POC ABG pCO2 POC ABG pO2 VBG pH Sodium Potassium 6.0 H Chloride 109.1 H Carbon Dioxide 12 L BUN 81 H Creatinine 3.2 H Glucose 535 H* POC Glucose 310 H Lactic Acid 8.20 H* Calcium 11.4 H Iron TIBC AST ALT Alkaline Phosphatase 152 H Ammonia Lactate Dehydrogenase C-Reactive Protein NT-Pro-B Natriuret Pep Total Protein 6.0 L Albumin 2.9 L Urine WBC (Auto) Urine Creatinine Crossmatch 09/20/17 09/20/17 09/20/17 03:00 03:20 05:20 WBC RBC Hgb Hct MCH RDW Plt Count Seg Neuts % (Manual) Lymphocytes % (Manual) Nucleated RBC % Seg Neutrophils # Man Lymphocytes # (Manual) POC ABG pH POC ABG pCO2 POC ABG pO2 VBG pH Sodium Potassium Chloride Carbon Dioxide BUN Creatinine Glucose POC Glucose 302 H Lactic Acid 6.10 H* Calcium Iron TIBC AST ALT Alkaline Phosphatase Ammonia Lactate Dehydrogenase C-Reactive Protein NT-Pro-B Natriuret Pep Total Protein Albumin Urine WBC (Auto) Urine Creatinine Crossmatch See Detail 09/20/17 09/20/17 09/20/17 06:28 11:45 15:40 WBC RBC Hgb Hct MCH RDW Plt Count Seg Neuts % (Manual) Lymphocytes % (Manual) Nucleated RBC % Seg Neutrophils # Man Lymphocytes # (Manual) POC ABG pH 7.231 L POC ABG pCO2 27.8 L POC ABG pO2 134 H VBG pH Sodium Potassium Chloride Carbon Dioxide BUN Creatinine Glucose POC Glucose 188 H Lactic Acid Calcium Iron TIBC AST ALT Alkaline Phosphatase Ammonia Lactate Dehydrogenase C-Reactive Protein NT-Pro-B Natriuret Pep 2439 H Total Protein Albumin Urine WBC (Auto) Urine Creatinine Crossmatch 09/20/17 09/20/17 09/20/17 15:40 15:40 15:40 WBC RBC Hgb Hct MCH RDW Plt Count Seg Neuts % (Manual) Lymphocytes % (Manual) Nucleated RBC % Seg Neutrophils # Man Lymphocytes # (Manual) POC ABG pH POC ABG pCO2 POC ABG pO2 VBG pH Sodium Potassium Chloride Carbon Dioxide BUN Creatinine Glucose POC Glucose Lactic Acid Calcium Iron 14 L TIBC 179 L AST ALT Alkaline Phosphatase Ammonia 108.0 H Lactate Dehydrogenase 274 H C-Reactive Protein 16.50 H NT-Pro-B Natriuret Pep Total Protein Albumin Urine WBC (Auto) Urine Creatinine Crossmatch 09/20/17 09/20/17 09/20/17 18:08 18:51 19:44 WBC RBC Hgb Hct MCH RDW Plt Count Seg Neuts % (Manual) Lymphocytes % (Manual) Nucleated RBC % Seg Neutrophils # Man Lymphocytes # (Manual) POC ABG pH 7.239 L POC ABG pCO2 26.1 L POC ABG pO2 139 H VBG pH Sodium Potassium Chloride Carbon Dioxide BUN Creatinine Glucose POC Glucose 109 H Lactic Acid 9.20 H* Calcium Iron TIBC AST ALT Alkaline Phosphatase Ammonia Lactate Dehydrogenase C-Reactive Protein NT-Pro-B Natriuret Pep Total Protein Albumin Urine WBC (Auto) Urine Creatinine Crossmatch 09/20/17 09/21/17 09/21/17 23:54 04:00 04:04 WBC RBC Hgb Hct MCH RDW Plt Count Seg Neuts % (Manual) Lymphocytes % (Manual) Nucleated RBC % Seg Neutrophils # Man Lymphocytes # (Manual) POC ABG pH POC ABG pCO2 POC ABG pO2 VBG pH Sodium Potassium Chloride Carbon Dioxide BUN Creatinine Glucose POC Glucose 67 L 201 H Lactic Acid Calcium Iron TIBC AST ALT Alkaline Phosphatase Ammonia Lactate Dehydrogenase C-Reactive Protein NT-Pro-B Natriuret Pep Total Protein Albumin Urine WBC (Auto) Urine Creatinine 40.9 H Crossmatch 09/21/17 09/21/17 09/21/17 04:38 04:46 04:46 WBC RBC 3.28 L Hgb 9.1 L D Hct 27.8 L D MCH RDW 15.9 H Plt Count Seg Neuts % (Manual) 20.0 L Lymphocytes % (Manual) 10.0 L Nucleated RBC % 6.0 H Seg Neutrophils # Man 1.7 L Lymphocytes # (Manual) 0.9 L POC ABG pH 7.178 L POC ABG pCO2 21.6 L POC ABG pO2 143 H VBG pH Sodium 153 H D Potassium 5.9 H Chloride 118.4 H Carbon Dioxide 9 L* BUN 94 H Creatinine 4.1 H Glucose 144 H POC Glucose Lactic Acid Calcium 8.3 L D Iron TIBC AST ALT Alkaline Phosphatase Ammonia Lactate Dehydrogenase C-Reactive Protein NT-Pro-B Natriuret Pep Total Protein Albumin Urine WBC (Auto) Urine Creatinine Crossmatch 09/21/17 09/21/17 09/21/17 04:46 16:15 17:16 WBC RBC Hgb Hct MCH RDW Plt Count Seg Neuts % (Manual) Lymphocytes % (Manual) Nucleated RBC % Seg Neutrophils # Man Lymphocytes # (Manual) POC ABG pH 7.010 L POC ABG pCO2 22.1 L POC ABG pO2 473 H VBG pH Sodium Potassium Chloride Carbon Dioxide BUN Creatinine Glucose POC Glucose Lactic Acid 15.20 H* Calcium Iron TIBC AST ALT Alkaline Phosphatase Ammonia 116.0 H Lactate Dehydrogenase C-Reactive Protein NT-Pro-B Natriuret Pep Total Protein Albumin Urine WBC (Auto) Urine Creatinine Crossmatch 09/21/17 09/22/17 09/22/17 17:17 03:56 03:56 WBC RBC 2.82 L Hgb 7.9 L Hct 23.3 L MCH RDW 16.9 H Plt Count 116 L Seg Neuts % (Manual) 25.0 L Lymphocytes % (Manual) 6.0 L Nucleated RBC % 16.0 H Seg Neutrophils # Man Lymphocytes # (Manual) 0.6 L POC ABG pH POC ABG pCO2 POC ABG pO2 VBG pH Sodium 147 H Potassium 5.5 H Chloride Carbon Dioxide 15 L BUN 78 H Creatinine 3.3 H Glucose 132 H POC Glucose 118 H Lactic Acid Calcium 7.5 L Iron TIBC AST 1215 H ALT 421 H Alkaline Phosphatase 162 H Ammonia Lactate Dehydrogenase 1955 H C-Reactive Protein NT-Pro-B Natriuret Pep Total Protein 5.4 L Albumin 3.3 L Urine WBC (Auto) Urine Creatinine Crossmatch 09/22/17 09/22/17 09/22/17 05:00 05:23 06:27 WBC RBC Hgb Hct MCH RDW Plt Count Seg Neuts % (Manual) Lymphocytes % (Manual) Nucleated RBC % Seg Neutrophils # Man Lymphocytes # (Manual) POC ABG pH 7.529 H POC ABG pCO2 19.0 L POC ABG pO2 160 H VBG pH Sodium Potassium Chloride Carbon Dioxide BUN Creatinine Glucose POC Glucose 51 L Lactic Acid Calcium Iron TIBC AST ALT Alkaline Phosphatase Ammonia Lactate Dehydrogenase C-Reactive Protein NT-Pro-B Natriuret Pep Total Protein Albumin Urine WBC (Auto) 12.0 H Urine Creatinine Crossmatch ED Critical Care Note - Critical Care Note Total Time (mins): 35 Comments: Time spent in this critically ill patient with risk of acute and worsening decompensation
--- NOTE | 2017-09-22 10:56 | Progress Note ---
Assessment and Plan Assessment and plan: Acute hypoxemic respiratory failure. Continue mechanical ventilation. Pulmonary consultation pending. Septic shock. Etiology likely secondary to aspiration pneumonia. Continue IV antibiotics and follow-up blood cultures and lactic acid levels. Patient currently require pressors of levophed. Continue albumin for blood pressure support. ID consultation. Metabolic acidosis/severe lactic acidosis. Etiology secondary to septic shock and THONY/ARF. Continue bicarbonate drip. Aspiration pneumonia/pneumonitis. Continue IV antibiotics and follow-up serial Chest x-ray. Toxic metabolic encephalopathy. ? Anoxia. Patient status post cardiopulmonary arrest yesterday for approximately 5-7 minutes. Check EEG. Continue to treat underlying causes. Neurology consultation. s/p bradycardic/cardiopulmonary arrest. Echocardiogram pending. New-onset atrial fibrillation. Follow-up echocardiogram. Cardiology following. Severe anemia. Etiology is unknown. Check Hemoccult stool. Check iron, ferritin, TIBC, LVH, reticulocyte count and B12/folate. Hematology consultation. Transfuse for hemoglobin less than 7.0. Hyperkalemia. Nephrology following. We will give calcium and Kayexalate as needed. Continue bicarbonate drip. Follow-up BMP in am Acute on chronic kidney failure. Patient appeared to have baseline creatinine of 1.3~1.7 in May of this year. Etiology likely secondary to sepsis/ATN. Check bilateral renal ultrasound, rule out obstructive nephropathy. Nephrology following. Ischemic hepatitis/shock liver. Etiology secondary to septic shock. Acute COPD exacerbation. Cont IV steroids and continue breathing treatment/ bronchodilators. Disposition. Prognosis is extremely guarded. The high probability of a clinically significant, sudden or life threatening deterioration of the [respiratory and renal] system(s) required my full and direct attention, intervention and personal management. The aggregate critical care time was [31] minutes. This time is in addition to time spent performing reported procedures but includes the following: [x] Data Review and interpretation [x] Patient assessment and monitoring of vital signs [x] Documentation [x] Medication orders and management History Interval history: No new issues overnight. Patient remains orally intubated and sedated. Patient currently on pressors of levophed. Patient with cardiopulmonary arrest yesterday manifested by profound bradycardia. Hospitalist Physical - Constitutional Vitals: Temp Pulse Resp BP Pulse Ox 97.4 F L 114 H 30 H 116/57 80 L 09/22/17 08:00 09/22/17 10:35 09/22/17 07:00 09/22/17 10:35 09/22/17 06:30 General appearance: Present: mild distress - EENT Eyes: Present: PERRL, EOM intact ENT: hearing intact, clear oral mucosa, dentition normal - Neck Neck: Present: supple, normal ROM - Respiratory Respiratory effort: normal Respiratory: bilateral: CTA - Cardiovascular Rhythm: regular Heart Sounds: Present: S1 & S2. Absent: gallop, rub - Extremities Extremities: no ischemia, No edema, Full ROM - Abdominal General gastrointestinal: soft, non-tender, non-distended, normal bowel sounds - Integumentary Integumentary: Present: clear, warm, dry - Neurologic Neurologic: CNII-XII intact, moves all extremities Results - Labs CBC & Chem 7: 09/22/17 03:56 09/22/17 03:56 Labs: Laboratory Last Values WBC 9.3 K/mm3 (4.5-11.0) 09/22/17 03:56 RBC 2.82 M/mm3 (3.65-5.03) L 09/22/17 03:56 Hgb 7.9 gm/dl (10.1-14.3) L 09/22/17 03:56 Hct 23.3 % (30.3-42.9) L 09/22/17 03:56 MCV 83 fl (79-97) 09/22/17 03:56 MCH 28 pg (28-32) 09/22/17 03:56 MCHC 34 % (30-34) 09/22/17 03:56 RDW 16.9 % (13.2-15.2) H 09/22/17 03:56 Plt Count 116 K/mm3 (140-440) L 09/22/17 03:56 Add Manual Diff Complete 09/22/17 03:56 Total Counted 100 09/22/17 03:56 Seg Neuts % (Manual) 25.0 % (40.0-70.0) L 09/22/17 03:56 Band Neutrophils % 27.0 % 09/22/17 03:56 Lymphocytes % (Manual) 6.0 % (13.4-35.0) L 09/22/17 03:56 Reactive Lymphs % (Man) 0 % 09/22/17 03:56 Monocytes % (Manual) 2.0 % (0.0-7.3) 09/22/17 03:56 Eosinophils % (Manual) 0 % (0.0-4.3) 09/22/17 03:56 Basophils % (Manual) 0 % (0.0-1.8) 09/22/17 03:56 Metamyelocytes % 9.0 % 09/22/17 03:56 Myelocytes % 31.0 % 09/22/17 03:56 Promyelocytes % 0 % 09/22/17 03:56 Blast Cells % 0 % 09/22/17 03:56 Nucleated RBC % 16.0 % (0.0-0.9) H 09/22/17 03:56 Seg Neutrophils # Man 2.3 K/mm3 (1.8-7.7) 09/22/17 03:56 Band Neutrophils # 2.5 K/mm3 09/22/17 03:56 Lymphocytes # (Manual) 0.6 K/mm3 (1.2-5.4) L 09/22/17 03:56 Abs React Lymphs (Man) 0.0 K/mm3 09/22/17 03:56 Monocytes # (Manual) 0.2 K/mm3 (0.0-0.8) 09/22/17 03:56 Eosinophils # (Manual) 0.0 K/mm3 (0.0-0.4) 09/22/17 03:56 Basophils # (Manual) 0.0 K/mm3 (0.0-0.1) 09/22/17 03:56 Metamyelocytes # 0.8 K/mm3 09/22/17 03:56 Myelocytes # 2.9 K/mm3 09/22/17 03:56 Promyelocytes # 0.0 K/mm3 09/22/17 03:56 Blast Cells # 0.0 K/mm3 09/22/17 03:56 WBC Morphology Not Reportable 09/22/17 03:56 Hypersegmented Neuts Not Reportable 09/22/17 03:56 Hyposegmented Neuts Not Reportable 09/22/17 03:56 Hypogranular Neuts Not Reportable 09/22/17 03:56 Smudge Cells Not Reportable 09/22/17 03:56 Toxic Granulation Not Reportable 09/22/17 03:56 Toxic Vacuolation Not Reportable 09/22/17 03:56 Dohle Bodies Not Reportable 09/22/17 03:56 Pelger-Huet Anomaly Not Reportable 09/22/17 03:56 Ruddy Rods Not Reportable 09/22/17 03:56 Platelet Estimate Appears decreased 09/22/17 03:56 Clumped Platelets Not Reportable 09/22/17 03:56 Plt Clumps, EDTA Not Reportable 09/22/17 03:56 Large Platelets Not Reportable 09/22/17 03:56 Giant Platelets Not Reportable 09/22/17 03:56 Platelet Satelliting Not Reportable 09/22/17 03:56 Plt Morphology Comment Not Reportable 09/22/17 03:56 RBC Morphology Not Reportable 09/22/17 03:56 Dimorphic RBCs Not Reportable 09/22/17 03:56 Polychromasia Not Reportable 09/22/17 03:56 Hypochromasia Not Reportable 09/22/17 03:56 Poikilocytosis Not Reportable 09/22/17 03:56 Anisocytosis Not Reportable 09/22/17 03:56 Microcytosis Not Reportable 09/22/17 03:56 Macrocytosis Not Reportable 09/22/17 03:56 Spherocytes Not Reportable 09/22/17 03:56 Pappenheimer Bodies Not Reportable 09/22/17 03:56 Sickle Cells Not Reportable 09/22/17 03:56 Target Cells Not Reportable 09/22/17 03:56 Tear Drop Cells Not Reportable 09/22/17 03:56 Ovalocytes Not Reportable 09/22/17 03:56 Helmet Cells Not Reportable 09/22/17 03:56 [place] Bodies Not Reportable 09/22/17 03:56 [place] Rings Not Reportable 09/22/17 03:56 Krystin Cells Not Reportable 09/22/17 03:56 Bite Cells Not Reportable 09/22/17 03:56 Crenated Cell Few 09/22/17 03:56 Elliptocytes Not Reportable 09/22/17 03:56 Acanthocytes (Spur) Not Reportable 09/22/17 03:56 Rouleaux Not Reportable 09/22/17 03:56 Hemoglobin C Crystals Not Reportable 09/22/17 03:56 Schistocytes Not Reportable 09/22/17 03:56 Malaria parasites Not Reportable 09/22/17 03:56 ESR 47 mm/Hr (0-20) 09/22/17 03:56 Percent Retic 1.78 % (0.78-2.58) 09/20/17 15:40 Maciej Bodies Not Reportable 09/22/17 03:56 Hem Pathologist Commnt No 09/22/17 03:56 PT 14.3 Sec. (12.2-14.9) 09/19/17 21:41 INR 1.06 (0.87-1.13) 09/19/17 21:41 D-Dimer 617.22 ng/mlDDU (0-234) H 09/19/17 21:41 POC ABG pH 7.529 (7.35-7.45) H 09/22/17 06:27 POC ABG pCO2 19.0 (35-45) L 09/22/17 06:27 POC ABG pO2 160 (80-105) H 09/22/17 06:27 POC ABG HCO3 15.9 09/22/17 06:27 POC ABG Total CO2 16 09/22/17 06:27 POC ABG O2 Sat 100 09/22/17 06:27 POC ABG Base Excess -7 09/22/17 06:27 VBG pH 7.158 (7.320-7.420) L* 09/20/17 00:30 FiO2 30 % 09/22/17 06:27 Sodium 147 mmol/L (137-145) H 09/22/17 03:56 Potassium 5.5 mmol/L (3.6-5.0) H 09/22/17 03:56 Chloride 101.7 mmol/L (98-107) 09/22/17 03:56 Carbon Dioxide 15 mmol/L (22-30) L 09/22/17 03:56 Anion Gap 36 mmol/L 09/22/17 03:56 BUN 78 mg/dL (7-17) H 09/22/17 03:56 Creatinine 3.3 mg/dL (0.7-1.2) H 09/22/17 03:56 Estimated GFR 13 ml/min 09/22/17 03:56 BUN/Creatinine Ratio 24 % 09/22/17 03:56 Glucose 132 mg/dL (65-100) H 09/22/17 03:56 POC Glucose 51 (70-105) L 09/22/17 05:23 Lactic Acid 15.20 mmol/L (0.7-2.0) H* 09/21/17 16:15 Calcium 7.5 mg/dL (8.4-10.2) L 09/22/17 03:56 Iron 14 ug/dL (37-170) L 09/20/17 15:40 TIBC 179 mcg/dL (250-450) L 09/20/17 15:40 Ferritin 86.1 ng/mL (13.0-400.0) 09/20/17 15:48 Total Bilirubin 0.80 mg/dL (0.1-1.2) 09/22/17 03:56 AST 1215 units/L (5-40) H 09/22/17 03:56 ALT 421 units/L (7-56) H 09/22/17 03:56 Alkaline Phosphatase 162 units/L (35-129) H 09/22/17 03:56 Ammonia 116.0 umol/L (25-60) H 09/21/17 04:46 Lactate Dehydrogenase 1955 units/L (91-180) H 09/22/17 03:56 C-Reactive Protein 16.50 mg/dL (0.00-1.30) H 09/20/17 15:40 NT-Pro-B Natriuret Pep 2439 pg/mL (0-900) H 09/20/17 15:40 Total Protein 5.4 g/dL (6.3-8.2) L 09/22/17 03:56 Albumin 3.3 g/dL (3.9-5) L 09/22/17 03:56 Albumin/Globulin Ratio 1.6 % 09/22/17 03:56 Vitamin B12 616.7 pg/mL (211-911) 09/20/17 15:48 Folate 12.46 ng/mL (7.3-26.0) 09/20/17 15:49 Urine Color Yellow (Yellow) 09/22/17 05:00 Urine Turbidity Clear (Clear) 09/22/17 05:00 Urine pH 5.0 (5.0-7.0) 09/22/17 05:00 Ur Specific [place] 1.009 (1.003-1.030) 09/22/17 05:00 Urine Protein <15 mg/dl mg/dL (Negative) 09/22/17 05:00 Urine Glucose (UA) Neg mg/dL (Negative) 09/22/17 05:00 Urine Ketones Neg mg/dL (Negative) 09/22/17 05:00 Urine Blood Sm (Negative) 09/22/17 05:00 Urine Nitrite Neg (Negative) 09/22/17 05:00 Urine Bilirubin Neg (Negative) 09/22/17 05:00 Urine Urobilinogen < 2.0 mg/dL (<2.0) 09/22/17 05:00 Ur Leukocyte Esterase Lg (Negative) 09/22/17 05:00 Urine WBC (Auto) 12.0 /HPF (0.0-6.0) H 09/22/17 05:00 Urine RBC (Auto) 36.0 /HPF (0.0-6.0) 09/22/17 05:00 U Epithel Cells (Auto) < 1.0 /HPF (0-13.0) 09/22/17 05:00 Urine Bacteria (Auto) 1+ /HPF (Negative) 09/22/17 05:00 Urine Mucus Few /HPF 09/19/17 22:28 Ur Yeast w Hyphae Few /HPF 09/22/17 05:00 Urine Yeast (Budding) 3+ /HPF 09/22/17 05:00 Urine Creatinine 40.9 mg/dL (0.1-20.0) H 09/21/17 04:00 Urine Sodium 84 mEq/L 09/21/17 04:00 Random Vancomycin 13.1 ug/mL (0-40.0) 09/21/17 04:46 Blood Type A POSITIVE 09/20/17 03:00 Antibody Screen Negative 09/20/17 03:00 Crossmatch See Detail 09/20/17 03:00
--- NOTE | 2017-09-22 10:58 | Progress Note ---
Assessment and Plan Patient's family has requested comfort measures only. Conservative cardiac management. Wean off levophed. Subjective Date of service: 09/22/17 Principal diagnosis: keyonna Interval history: The patient is unresponsive, on the vent. On telemetry, there is a sinus tachycardia. Blood pressure is 116 systolic on levophed. Family is at the bedside, and requesting comfort measures only. Echocardiogram was done earlier this morning the results are pending. Objective Vital Signs Temp Pulse Pulse Resp Resp BP Pulse Ox 09/22/17 10:35 114 H 116/57 09/22/17 08:00 97.4 F L 09/22/17 07:00 114 H 30 H 112/63 09/22/17 06:45 121 H 30 H 124/71 09/22/17 06:30 116 H 30 H 117/66 80 L 09/22/17 06:16 115 H 30 H 81/39 09/22/17 06:00 115 H 30 H 110/60 09/22/17 05:45 115 H 30 H 111/47 09/22/17 05:30 113 H 30 H 107/50 83 L 09/22/17 05:15 118 H 30 H 110/56 82 L 09/22/17 05:00 119 H 30 H 109/66 09/22/17 04:45 119 H 30 H 121/60 09/22/17 04:44 109 H 108/62 94 09/22/17 04:30 120 H 30 H 113/56 09/22/17 04:15 121 H 30 H 116/56 09/22/17 04:00 121 H 30 H 104/58 09/22/17 03:45 120 H 30 H 119/64 09/22/17 03:30 119 H 30 H 109/64 09/22/17 03:17 97.5 F L 09/22/17 03:15 121 H 30 H 118/62 09/22/17 03:00 115 H 112 H 30 H 24 126/73 09/22/17 02:45 117 H 30 H 122/63 09/22/17 02:44 113 H 30 H 09/22/17 02:30 113 H 30 H 122/66 93 09/22/17 02:15 113 H 30 H 114/63 09/22/17 02:00 105 H 30 H 106/52 09/22/17 01:45 112 H 30 H 113/62 09/22/17 01:30 112 H 30 H 110/62 09/22/17 01:15 111 H 30 H 110/62 09/22/17 01:00 112 H 30 H 110/61 09/22/17 00:45 108 H 30 H 109/62 09/22/17 00:30 110 H 30 H 110/63 09/22/17 00:15 109 H 30 H 108/62 09/22/17 00:00 111 H 30 H 114/63 96 09/21/17 23:45 109 H 30 H 113/70 09/21/17 23:30 111 H 30 H 107/67 09/21/17 23:15 112 H 30 H 112/62 09/21/17 23:13 113 H 112/62 92 09/21/17 23:00 112 H 30 H 117/59 09/21/17 22:45 115 H 30 H 108/61 09/21/17 22:40 96.9 F L 09/21/17 22:30 112 H 30 H 109/67 09/21/17 22:15 113 H 30 H 116/65 09/21/17 22:00 102 H 30 H 108/67 09/21/17 21:45 112 H 30 H 103/65 93 09/21/17 21:30 109 H 30 H 73/42 09/21/17 21:15 111 H 29 H 67/36 09/21/17 21:04 115 H 30 H 98/55 09/21/17 21:00 112 H 30 H 98/55 09/21/17 20:58 113 H 30 H 73/50 09/21/17 20:45 113 H 30 H 100/62 09/21/17 20:30 111 H 30 H 93/63 09/21/17 20:15 113 H 30 H 94/57 09/21/17 20:00 112 H 25 H 91/53 96 09/21/17 19:55 112 H 29 H 09/21/17 19:46 113 H 90/51 98 09/21/17 19:45 113 H 30 H 90/51 09/21/17 19:35 95.8 F L 09/21/17 19:30 117 H 30 H 73/50 09/21/17 19:15 116 H 30 H 100/62 09/21/17 19:05 124 H 66/34 09/21/17 19:00 127 H 29 H 84/42 09/21/17 18:55 126 H 84/42 09/21/17 18:45 127 H 30 H 63/31 09/21/17 18:30 116 H 29 H 72/35 09/21/17 18:15 98.7 F 110 H 30 H 101/55 09/21/17 18:00 110 H 30 H 102/53 80 L 09/21/17 17:45 111 H 30 H 97/49 09/21/17 17:30 111 H 30 H 106/44 09/21/17 17:15 111 H 30 H 105/44 09/21/17 17:00 109 H 30 H 130/70 09/21/17 16:46 113 H 30 H 130/70 09/21/17 16:40 114 H 121/69 09/21/17 16:30 114 H 30 H 121/69 94 09/21/17 16:15 111 H 30 H 106/52 09/21/17 16:00 98.7 F 115 H 30 H 123/51 93 09/21/17 15:46 115 H 30 H 143/77 09/21/17 15:30 115 H 30 H 143/77 09/21/17 15:16 114 H 30 H 143/77 09/21/17 15:06 111 H 30 H 09/21/17 15:00 111 H 30 H 143/77 09/21/17 14:51 101 H 30 H 09/21/17 14:46 92 H 30 H 133/67 09/21/17 14:30 105 H 30 H 133/67 09/21/17 14:16 111 H 30 H 133/67 09/21/17 14:00 113 H 30 H 133/67 09/21/17 13:46 115 H 30 H 133/67 09/21/17 13:30 117 H 30 H 133/67 09/21/17 13:16 117 H 30 H 133/67 09/21/17 13:00 110 H 30 H 210/92 09/21/17 12:46 118 H 30 H 211/132 09/21/17 12:30 88 32 H 105/56 09/21/17 12:16 111 H 30 H 105/56 90 09/21/17 12:00 97.4 F L 115 H 30 H 105/56 93 09/21/17 11:46 112 H 30 H 105/56 09/21/17 11:42 112 H 98 09/21/17 11:30 113 H 30 H 105/56 09/21/17 11:15 113 H 30 H 105/56 09/21/17 11:00 112 H 30 H 108/53 - Physical Examination General: Other (unresponsive, on the vent) HEENT: Positive: PERRL Neck: Positive: neck supple Cardiac: Positive: Regular Rhythm Lungs: Positive: Decreased Breath Sounds Neuro: Positive: Other (all responsive, on the vent) Abdomen: Positive: Soft Skin: Positive: Clear Extremities: Absent: edema - Labs and Meds Cardiac Enzymes 09/22/17 Range/Units 03:56 AST 1215 H (5-40) units/L Lactate Dehydrogenase 1955 H (91-180) units/L CBC 09/22/17 Range/Units 03:56 WBC 9.3 (4.5-11.0) K/mm3 RBC 2.82 L (3.65-5.03) M/mm3 Hgb 7.9 L (10.1-14.3) gm/dl Hct 23.3 L (30.3-42.9) % Plt Count 116 L (140-440) K/mm3 Comprehensive Metabolic Panel 09/22/17 Range/Units 03:56 Sodium 147 H (137-145) mmol/L Potassium 5.5 H (3.6-5.0) mmol/L Chloride 101.7 (98-107) mmol/L Carbon Dioxide 15 L (22-30) mmol/L BUN 78 H (7-17) mg/dL Creatinine 3.3 H (0.7-1.2) mg/dL Glucose 132 H (65-100) mg/dL Calcium 7.5 L (8.4-10.2) mg/dL AST 1215 H (5-40) units/L ALT 421 H (7-56) units/L Alkaline Phosphatase 162 H (35-129) units/L Total Protein 5.4 L (6.3-8.2) g/dL Albumin 3.3 L (3.9-5) g/dL
[2017-09-22] MEDS: HEPARIN SUB-Q SCH (11:37)
[2017-09-22] MEDS ORDERED: PEPCID IV SCH (12:00)
--- NOTE | 2017-09-22 13:54 | Discharge Summary ---
Providers - Providers Date of Admission: 09/19/17 23:41 Date of discharge: 09/22/17 Attending physician: MARCEL BLACKWOOD 09/20/17 11:50 Consult to Physician [CONS] Routine Consulting Provider: LAURI CHAO Reason For Exam: anemia Place consult to:: HEM ONC Notified:: Y Was contact made?: Yes If yes, spoke with:: A/S FOR DR CHAIDEZ Time called:: 15:50 Comment:: LEAD PRINTER FOR DR CHAO 09/20/17 20:48 Consult to PICC Line RN [CONS] Routine Reason For Exam: HYPOTENSION; CENTRAL VASCULAR ACCESS Type Line:: PICC 09/21/17 10:25 Consult to Physician [CONS] Routine Consulting Provider: JAMIE DISLA Reason For Exam: Acute on CKD Place consult to:: Dr Disla Notified:: office staff Phone number called:: [phone] Was contact made?: Yes If yes, spoke with:: Rose Mary Time called:: 10:55 09/21/17 11:35 Consult to Physician [CONS] Routine Consulting Provider: KASSIE PAEZ Reason For Exam: vasc cath placment Place consult to:: Office Staff Aspen Notified:: yes Was contact made?: Yes If yes, spoke with:: Vernell Time called:: 13:44 09/21/17 13:25 Consult to Cardiology [CONS] Routine Consulting Provider: ANDRE VEGA Reason For Exam: afib 09/22/17 10:47 Consult to Physician [CONS] Routine Consulting Provider: LAURI CHAO Reason For Exam: anemia 09/22/17 10:50 Consult to Physician [CONS] Routine Consulting Provider: JOCE JONES Reason For Exam: sepsis Primary care physician: MANAGER TRANSPLANT Hospitalization Reason for admission: sepsis Condition: Critical Hospital course: 82-year-old woman with a history of hypertension, COPD, chronic kidney disease, dementia was just discharged from the hospital returned with complaints of cough productive of yellow phlegm and lethargy. Patient was previously on home hospice. Patient was admitted with diagnosis of sepsis, acute hypoxic respiratory failure, aspiration pneumonia/pneumonitis, hypokalemia and acute on chronic kidney failure. Patient required intubation and was placed on mechanical ventilation. Patient was seen by pulmonary and infectious disease consultation. Patient received IV antibiotics. Patient had progressive decline and deterioration throughout hospitalization. Patient's sepsis progressed to shock requiring pressors. Also patient was noted to have developed cardiopulmonary arrest manifested by profound bradycardia from the respiratory failure/pneumonia. Post arrest. Patient was noted to have atrial fibrillation in which cardiology was consulted. Also, patient had other complications with multiorgan failure with ischemic hepatitis/liver with elevated LFTs and increasing Boby worst creatinine with kidney failure. Patient was seen by nephrology consultation. Hemodialysis was initiated. Unfortunately , patient continued to deteriorate and decline. Therefore, the family opted for deceleration of care and hospice. Case management was consulted and patient will be transferred to inpatient hospice. Disposition: [facility] ([facility]) Time spent for discharge: 32 - Discharge Diagnoses (1) Septic shock Status: Acute (2) Ischemic hepatitis Status: Acute (3) Acute respiratory failure with hypoxia Status: Acute (4) Lactic acid acidosis Status: Acute (5) Acidosis, hyperchloremic Status: Acute (6) Acute respiratory failure with hypoxemia Status: Acute (7) Altered mental status Status: Acute Qualifiers: Altered mental status type: A Coma depth: C Coma timing: C (8) Anemia Status: Acute Qualifiers: Anemia type: A Iron deficiency anemia type: I Vitamin B12 deficiency anemia type: V Folate deficiency anemia type: F Bone marrow failure anemia type: B Hemolytic anemia type: H Other causes of anemia: chronic disease, other Chronic kidney disease stage: C Qualified Code(s): D63.8 - Anemia in other chronic diseases classified elsewhere (9) Septic shock Status: Acute (10) Acute hyperkalemia Status: Acute (11) Anemia Status: Acute Qualifiers: Anemia type: other cause Iron deficiency anemia type: I Vitamin B12 deficiency anemia type: V Folate deficiency anemia type: F Bone marrow failure anemia type: B Hemolytic anemia type: H Other causes of anemia: O Chronic kidney disease stage: C (12) Pneumonia Status: Acute Qualifiers: Pneumonia type: P Aspiration pneumonia type: A Laterality: L Lung location: L (13) CKD (chronic kidney disease) Status: Chronic Qualifiers: Chronic kidney disease stage: C Core Measure Documentation - Palliative Care Palliative Care/ Comfort Measures: Not Applicable - Core Measures Any of the following diagnoses?: none Exam - Constitutional Vitals: Temp Pulse Resp BP Pulse Ox 997.3 F H 118 H 30 H 87/49 90 09/22/17 12:00 09/22/17 11:00 09/22/17 11:00 09/22/17 11:00 09/22/17 07:30 General appearance: Present: no acute distress, well-nourished - EENT Eyes: Present: PERRL ENT: hearing intact, clear oral mucosa - Neck Neck: Present: supple, normal ROM - Respiratory Respiratory effort: normal Respiratory: bilateral: CTA - Cardiovascular Heart Sounds: Present: S1 & S2. Absent: rub, click - Extremities Extremities: pulses symmetrical, No edema Peripheral Pulses: within normal limits - Abdominal General gastrointestinal: Present: soft, non-tender, non-distended, normal bowel sounds Female genitourinary: Present: normal - Integumentary Integumentary: Present: clear, warm, dry - Musculoskeletal Musculoskeletal: gait normal, strength equal bilaterally - Psychiatric Psychiatric: appropriate mood/affect, intact judgment & insight - Neurologic Neurologic: CNII-XII intact, moves all extremities Plan Activity: other (per hospice /comfort care) Weight Bearing Status: Non-Weight Bearing Diet: other (per hospice) Follow up with: PRIMARY CARE, [Primary Care Provider] - 7 Days
[2017-09-22] MEDS ORDERED: LEVOPHED DRIP 4 MG/NS 250 ML 4 MG/250 ML BAG IV SCH (14:00)
[2017-09-22 17:43] VITALS: BP 71/37
== END 2017-09-22 18:50 | disposition hospice, inpatient (51) | DRG 871 ==
LOC: ED 20:36 → CC1 23:41
PROVIDERS: ADMIT Internal Medicine Geriatric Medicine; ATTEND Hospitalist
PROC: 5A1945Z Respiratory Ventilation, 24-96 Consecutive Hours (ICD-10-PCS; principal; 2017-09-19)
PROC: 0BH17EZ Insertion of Endotracheal Airway into Trachea, Via Natural or Artificial Opening (ICD-10-PCS; 2017-09-19)
PROC: 4A033R1 Measurement of Arterial Saturation, Peripheral, Percutaneous Approach (ICD-10-PCS; 2017-09-19)
PROC: 30233N1 Transfusion of Nonautologous Red Blood Cells into Peripheral Vein, Percutaneous Approach (ICD-10-PCS; 2017-09-20)
PROC: 06HM33Z Insertion of Infusion Device into Right Femoral Vein, Percutaneous Approach (ICD-10-PCS; 2017-09-21)
PROC: B54BZZA Ultrasonography of Right Lower Extremity Veins, Guidance (ICD-10-PCS; 2017-09-21)
DX: A41.9 Sepsis, unspecified organism (principal); J96.01 Acute respiratory failure with hypoxia; J69.0 Pneumonitis due to inhalation of food and vomit; G92 Toxic encephalopathy; N17.0 Acute kidney failure with tubular necrosis; R65.21 Severe sepsis with septic shock; I46.9 Cardiac arrest, cause unspecified; N39.0 Urinary tract infection, site not specified; I13.0 Hypertensive heart and chronic kidney disease with heart failure and stage 1 through stage 4 chronic kidney disease, or unspecified chronic kidney disease; J44.1 Chronic obstructive pulmonary disease with (acute) exacerbation; N13.8 Other obstructive and reflux uropathy; E87.5 Hyperkalemia; D64.89 Other specified anemias; I48.91 Unspecified atrial fibrillation; N18.9 Chronic kidney disease, unspecified; I50.9 Heart failure, unspecified; F03.90 Unspecified dementia, unspecified severity, without behavioral disturbance, psychotic disturbance, mood disturbance, and anxiety; Z96.641 Presence of right artificial hip joint; R73.9 Hyperglycemia, unspecified; E87.6 Hypokalemia; K75.9 Inflammatory liver disease, unspecified
CPT/HCPCS: 31500; 36415; 36600; 70450; 71010; 80048; 80053; 80202; 81001; 82140; 82232; 82570; 82607; 82728; 82747; 82803; 82805; 82962; 83550; 83615; 83880; 84165; 84300; 85007; 85025; 85045; 85379; 85610; 85652; 86140; 86850; 86900; 86901; 86920; 87040; 87070; 87076; 87086; 87186; 87205; 93005; 93010; 93306; 94002; 94003; 94640; 96365; 96375; C9113; J0171; J0330; J0610; J0696; J1644; J1815; J2250; J2543; J2704; J2920; J3370; J7030; J7040; J7042; J7050; J7070; P9016; P9047